=== PATIENT | female | born 1970 | race Caucasian/White ===

== ENCOUNTER 2017-08-13 16:07 | Emergency (ER) | payer OTHER, SELFPAY ==
[2017-08-13 16:11] VITALS: BP 115/76; PULSE 85; RESP 16; TEMP 36.4; O2SAT 100; BMI 19.8
--- NOTE | 2017-08-13 16:32 | HMH.EDEAR ---
ED Disposition Clinical Impression: Serous otitis media Disposition: Home, Self-Care Condition on Discharge: Good Additional Instructions: claritin D over the counter for allergic type of congestion, see your family MD next week for recheck. Time of Disposition: 16:35 - Critical Care Critical Care Time: No Attestation: On , the high probability of a clinically significant, sudden or life threatening deterioration of the following system(s) required my full and direct attention, intervention and personal management. The time I documented below is in addition to time spent performing reported procedures but includes the following listed in this critical care notation. Medical Decision Making Vital Signs: 08/13/17 16:11 Temperature 97.5 F L Temperature Source Oral Pulse Rate [Right Brachial] 85 Respiratory Rate 16 Blood Pressure [Right Arm] 115/76 Blood Pressure Mean [Right Arm] 89 Blood Pressure Source [Right Arm] Automatic Cuff Blood Pressure Position [Right Arm] Sitting 02 Sat by Pulse Oximetry 100 Oxygen Delivery Method Room Air - Fito Inquiry Pt receiving controlled substance: No Ear HPI - General Chief complaint: Ear Stated complaint: ear pain Time Seen by Provider: 08/13/17 16:30 Mode of Arrival: Ambulatory Limitations: No Limitations Description of Symptoms (Recalled from ER Triage Doc. by RN): Pt reports R ear pain for a couple months , reports L ear pain x3 days - History of Present Illness MD Complaint: ear pain, decreased hearing Location: bilateral Duration: intermittent Severity: mild Relieving factors: other (standing up) Exacerbating factors: position of head Discharge from ear: no Associated symptoms ear: decreased hearing, other (sinus pressure, congestion, hx chronic allergies. ) - Related Data Home Medications Medication Instructions Recorded Confirmed LORazepam [Ativan 1mg tablet] 0 mg PO TID 08/13/17 08/13/17 Allergies Allergy/AdvReac Type Severity Reaction Status Date / Time No Known Allergies Allergy Verified 08/13/17 16:17 [facility] History Medical History: Denies:: Diabetes Mellitus Type 1, Diabetes Mellitus Type 2 - Social History Smoking Status: Current every day smoker Tobacco Type: cigarettes Alcohol Intake: never - Psychiatric History Expresses thoughts of harming self/others: None Suicide Plan Description: No Plan ROS Obtained: Yes All systems reviewed & no additional complaints Physical Exam - General General appearance: alert, in no apparent distress - Head Head exam: atraumatic, normocephalic, normal inspection - Eye Eye exam: Present: normal appearance, PERRL, EOMI - ENT ENT exam: Present: normal oropharynx, mucous membranes moist, normal external ear exam (TM's cloudy B , c/w serous OM) - Respiratory Respiratory exam: Present: normal lung sounds bilaterally. Absent: respiratory distress - Cardiovascular Cardiovascular exam: Present: regular rate, normal rhythm. Absent: JVD - Abdominal Exam Abdominal exam: Present: soft, normal bowel sounds. Absent: distention, tenderness, guarding - Extremities Exam Extremities exam: Present: full ROM - Neurological Exam Neurological exam: Present: alert, oriented X3, CN II-XII intact. Absent: motor sensory deficit - Psychiatric Psychiatric exam: Present: normal affect, normal mood - Skin Skin exam: Present: warm, dry, intact, normal color - Lymphatic Lymphatic Findings: no adenopathy
--- NOTE | 2017-08-13 16:35 | ED_ITS ---
ED Disposition Clinical Impression: Serous otitis media Disposition: Home, Self-Care Condition on Discharge: Good Additional Instructions: claritin D over the counter for allergic type of congestion, see your family MD next week for recheck. Time of Disposition: 16:35 - Critical Care Critical Care Time: No Attestation: On , the high probability of a clinically significant, sudden or life threatening deterioration of the following system(s) required my full and direct attention, intervention and personal management. The time I documented below is in addition to time spent performing reported procedures but includes the following listed in this critical care notation. Medical Decision Making Vital Signs: 08/13/17 16:11 Temperature 97.5 F L Temperature Source Oral Pulse Rate [Right Brachial] 85 Respiratory Rate 16 Blood Pressure [Right Arm] 115/76 Blood Pressure Mean [Right Arm] 89 Blood Pressure Source [Right Arm] Automatic Cuff Blood Pressure Position [Right Arm] Sitting 02 Sat by Pulse Oximetry 100 Oxygen Delivery Method Room Air - Fito Inquiry Pt receiving controlled substance: No Ear HPI - General Chief complaint: Ear Stated complaint: ear pain Time Seen by Provider: 08/13/17 16:30 Mode of Arrival: Ambulatory Limitations: No Limitations Description of Symptoms (Recalled from ER Triage Doc. by RN): Pt reports R ear pain for a couple months , reports L ear pain x3 days - History of Present Illness MD Complaint: ear pain, decreased hearing Location: bilateral Duration: intermittent Severity: mild Relieving factors: other (standing up) Exacerbating factors: position of head Discharge from ear: no Associated symptoms ear: decreased hearing, other (sinus pressure, congestion, hx chronic allergies. ) - Related Data Home Medications Medication Instructions Recorded Confirmed LORazepam [Ativan 1mg tablet] 0 mg PO TID 08/13/17 08/13/17 Allergies Allergy/AdvReac Type Severity Reaction Status Date / Time No Known Allergies Allergy Verified 08/13/17 16:17 [facility] History Medical History: Denies:: Diabetes Mellitus Type 1, Diabetes Mellitus Type 2 - Social History Smoking Status: Current every day smoker Tobacco Type: cigarettes Alcohol Intake: never - Psychiatric History Expresses thoughts of harming self/others: None Suicide Plan Description: No Plan ROS Obtained: Yes All systems reviewed & no additional complaints Physical Exam - General General appearance: alert, in no apparent distress - Head Head exam: atraumatic, normocephalic, normal inspection - Eye Eye exam: Present: normal appearance, PERRL, EOMI - ENT ENT exam: Present: normal oropharynx, mucous membranes moist, normal external ear exam (TM's cloudy B , c/w serous OM) - Respiratory Respiratory exam: Present: normal lung sounds bilaterally. Absent: respiratory distress - Cardiovascular Cardiovascular exam: Present: regular rate, normal rhythm. Absent: JVD - Abdominal Exam Abdominal exam: Present: soft, normal bowel sounds. Absent: distention, tenderness, guarding - Extremities Exam Extremities exam: Present: full ROM - Neurological Exam Neurological exam: Present: alert, oriented X3, CN II-XII intact. Absent: motor sensory deficit - Psychiatric
[2017-08-13 16:50] VITALS: BP 121/80; PULSE 78; RESP 20; TEMP 37.1; O2SAT 100
== END 2017-08-13 16:50 | disposition home or self-care (01) ==
PROVIDERS: Emergency Provider Emergency Medicine; PCP Physician Assistant
DX: H65.93 Unspecified nonsuppurative otitis media, bilateral (principal); F17.210 Nicotine dependence, cigarettes, uncomplicated
CPT/HCPCS: 99281

== ENCOUNTER → 2017-08-25 09:48 | Outpatient (REF) | payer OTHER, SELFPAY ==
[2017-08-25 14:01] LABS: Amphetamine/Metha Screen,Urine Negative ng/mL (<1000); Barbiturates Screen,Urine Negative ng/mL (<200); Benzodiazepines Screen,Urine Negative ng/mL (200); Cannabinoid Screen,Urine Negative ng/mL (<50); Cocaine Screen,Urine Negative ng/g (<300); Methadone Screen,Urine Negative ng/mL (<300); Opiate Screen,Urine Negative ng/mL (<300); Phencyclidine Screen,Urine Negative ng/mL (<25)
== END ==
LOC: LAB 09:48
PROVIDERS: Visit Provider Physician Assistant
DX: Z79.899 Other long term (current) drug therapy (principal)
CPT/HCPCS: 80305

== ENCOUNTER → 2017-11-22 11:28 | Outpatient (REF) | payer OTHER, SELFPAY ==
[2017-11-22 14:12] LABS: Alanine Aminotransferase 36 U/L (12-78); Albumin Level 4.4 gm/dL (3.4-5.0); Albumin/Globulin Ratio 1.3 (1.1-1.8); Alkaline Phosphatase 56 U/L (46-116); Anion Gap 11.8 mEq/L (5-15); Aspartate Amino Transferase 29 U/L (15-37); Bilirubin,Total 0.5 mg/dL (0.2-1.0); Blood Urea Nitrogen 11 mg/dL (7-18); C-Reactive Protein < 0.2 mg/L (0.0-0.9); Calcium 9.5 mg/dL (8.5-10.1); Carbon Dioxide 28 mmol/L (21.0-32.0); Chloride 103 mmol/L (98-107); Chol/HDL Ratio 2.3 (1-3.5); Cholesterol 187 mg/dL (140-200); Creatinine,Serum 0.76 mg/dL (0.55-1.02); Estimated Glomerular Filt Rate 82 ml/min (>60); GFR (African American) 100 ML/MIN (>60); Globulin 3.4 gm/dl (1.3-3.2); Glucose 93 mg/dL (74-106); HDL Cholesterol 82 mg/dL (29-89); LDL Cholesterol 95 mg/dL (0-130); Potassium 3.8 mmoL/L (3.5-5.1); Sodium 139 mmol/L (136-145); T4 (Thyroxine) 6.5 ug/dl (4.7-13.3); Thyroid Stimulating Hormone 1.05 uIU/ml (0.358-3.740); Total Protein,Serum 7.8 gm/dL (6.4-8.2); Triglycerides 50 mg/dL (30-200); VLDL Cholesterol 10 mg/dL (0-40)
[2017-11-22 14:25] LABS: Basophils # 0.1 K/mm3 (0-0.2); Basophils % 1.2 % (0.1-2.0); Eosinophils # 0.2 K/mm3 (0.0-0.4); Eosinophils % 3.6 % (0.1-12.0); Hematocrit 44.2 % (37.0-47.0); Hemoglobin 13.2 g/dL (12.2-16.2); Lymphocytes # 1.8 K/mm3 (0.7-4.5); Mean Corpuscular Hemoglobin 28.1 pg (27.0-31.2); Mean Corpuscular Volume 93.7 fl (81-99); Mean Platelet Volume 8.8 fl (7.4-10.4); Monocytes # 0.4 K/mm3 (0.1-1.0); Monocytes % 6.7 % (1.7-9.3); Neutrophils # 3.7 K/mm3 (1.8-7.8); Neutrophils % 59.5 % (37.0-80.0); Platelet Count 214 K/mm3 (142-424); Red Blood Count 4.71 M/mm3 (4.20-5.40); Red Cell Distribution Width 11.4 % (11.5-17.5); White Blood Count 6.3 K/mm3 (4.8-10.8)
[2017-11-22 16:08] LABS: Erythrocyte Sedimentation Rate 0 mm/hr (0-20)
[2017-11-23 10:09] LABS: FSH 54.5 mIU/mL (.); LH 26.2 mIU/mL (.); Progesterone 0.3 ng/mL (.)
[2017-11-23 11:25] LABS: Anti-Jo-1 <0.2 AI (0.0-0.9); Anti-Smith Antibody <0.2 AI (0.0-0.9); Antichromatin Antibodies <0.2 AI (0.0-0.9); Antiscleroderma-70 Antibodies <0.2 AI (0.0-0.9); RNP Antibodies <0.2 AI (0.0-0.9); Sjogren's Anti-SS-A <0.2 AI (0.0-0.9); Sjogren's Anti-SS-B 0.3 AI (0.0-0.9)
[2017-11-23 14:39] LABS: Anti-Centromere B Antibodies <0.2 AI (0.0-0.9); Anti-DNA (DS) Ab Qn 1 IU/mL (0-9)
[2017-11-25 06:27] LABS: Anti-Cyclic Citrullinated Pept 10 units (0-19)
[2017-11-25 15:24] LABS: Estrogen 130 pg/mL (.)
== END ==
LOC: LAB 11:28
PROVIDERS: Visit Provider Physician Assistant
DX: F41.9 Anxiety disorder, unspecified (principal); F39 Unspecified mood [affective] disorder; R53.83 Other fatigue; L40.9 Psoriasis, unspecified; M25.40 Effusion, unspecified joint; M25.50 Pain in unspecified joint
CPT/HCPCS: 80053; 80061; 82652; 82672; 83001; 83002; 84144; 84436; 84443; 85025; 85651; 86038; 86140; 86200

== ENCOUNTER → 2018-05-30 20:18 | Outpatient (CLI) | payer BC, SELFPAY ==
[2018-05-30 22:12] LABS: Amphetamine/Metha Screen,Urine Negative ng/mL (<1000); Barbiturates Screen,Urine Negative ng/mL (<200); Benzodiazepines Screen,Urine Negative ng/mL (<200); Cannabinoid Screen,Urine Negative ng/mL (<50); Cocaine Screen,Urine Negative ng/mL (<300); Methadone Screen,Urine Negative ng/mL (<300); Opiate Screen,Urine Negative ng/mL (<300); Phencyclidine Screen,Urine Negative ng/mL (<25)
[2018-06-08 00:08] LABS: Alprazolam Negative (Cutoff=100); Benzodiazepines Positive ng/mL (Cutoff=100); Clonazepam Negative (Cutoff=100); Flurazepam Negative (Cutoff=100); Lorazepam Positive (.); Midazolam Negative (Cutoff=100); Temazepam Negative (Cutoff=100); Triazolam Negative (Cutoff=100)
== END ==
PROVIDERS: Visit Provider Physician Assistant
DX: Z79.899 Other long term (current) drug therapy (principal)
CPT/HCPCS: 80305; 80346

== ENCOUNTER → 2018-08-15 10:35 | Outpatient (CLI) | payer BC, SELFPAY ==
--- NOTE | 2018-08-15 10:40 | XR_ITS ---
XR shoulder LT min 2V HISTORY: ITS.REASON: Left shoulder pain ORDERING PHYSICIAN: GONZALO Wallace PATIENT AGE: 48 years Comparison: None FINDINGS: Minimal osteoarthritic changes present at the acromioclavicular joint and glenohumeral joint. No fracture or dislocation. No lytic or blastic change. No subacromial stenosis. IMPRESSION: Minimal osteoarthritis
== END ==
PROVIDERS: PCP Emergency Medicine; Visit Provider Physician Assistant
DX: M25.512 Pain in left shoulder (principal)
CPT/HCPCS: 73030

== ENCOUNTER → 2018-12-23 15:14 | Outpatient (CLI) | payer MEDICAID, SELFPAY ==
--- NOTE | 2018-12-23 15:19 | XR_ITS ---
XR shoulder LT min 2V HISTORY: ITS.REASON: shoulder pain ORDERING PHYSICIAN: Mariela Sellers APRN PATIENT AGE: 48 years Comparison: 08/15/2018 FINDINGS: There are mild osteoarthritic changes of the acromioclavicular joint and glenohumeral joint. No fracture or dislocation is evident. IMPRESSION: Mild osteoarthritis, no change with no acute finding
[2018-12-23 18:03] LABS: Amphetamine/Metha Screen,Urine Negative ng/mL (<1000); Barbiturates Screen,Urine Negative ng/mL (<200); Benzodiazepines Screen,Urine Negative ng/mL (<200); Cannabinoid Screen,Urine Negative ng/mL (<50); Cocaine Screen,Urine Negative ng/mL (<300); Methadone Screen,Urine Negative ng/mL (<300); Opiate Screen,Urine Negative ng/mL (<300); Phencyclidine Screen,Urine Negative ng/mL (<25)
[2018-12-30 19:12] LABS: Alprazolam Negative (Cutoff=100); Benzodiazepines Positive ng/mL (Cutoff=100); Clonazepam Negative (Cutoff=100); Flurazepam Negative (Cutoff=100); Lorazepam Positive (.); Midazolam Negative (Cutoff=100); Temazepam Negative (Cutoff=100); Triazolam Negative (Cutoff=100)
== END ==
PROVIDERS: PCP Physician Assistant; Visit Provider Nurse Practitioner Family
DX: M25.512 Pain in left shoulder (principal); Z79.899 Other long term (current) drug therapy; F41.9 Anxiety disorder, unspecified
CPT/HCPCS: 73030; 80305; 80346

== ENCOUNTER 2019-02-17 11:00 | Outpatient (RCR) | payer BC, MEDICAID, SELFPAY ==
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
== END 2019-02-17 11:05 | disposition home or self-care (01) ==
LOC: OT 11:00
PROVIDERS: Visit Provider Nurse Practitioner Family
DX: M25.512 Pain in left shoulder (principal)
CPT/HCPCS: 97014; 97033; 97110; 97165; G0283

== ENCOUNTER → 2019-03-01 17:00 | Outpatient (CLI) | payer BC, SELFPAY ==
--- NOTE | 2019-03-01 17:01 | MM_ITS ---
PROCEDURE: MM DIG SCREENING MAMM BI W/CAD CLINICAL INDICATION: screening There is no personal or family history of breast cancer. There has been previous biopsy right breast for benign disease. COMPARISON: [facility] DIGITAL MAMM-SCREEN BILATERAL from 08/29/2010 [facility] DIG MAMM-DX HUANG from 09/26/2014 [facility] DIG MAMM-SCREEN HUANG from 04/21/2016 TECHNIQUE: Standard CC and MLO images were obtained. R2 CAD reviewed. FINDINGS: There is a diffusely dense and heterogenic parenchymal pattern lessening the sensitivity of mammography. The findings are fairly symmetrical bilaterally. There is no suspicious lesion and no suspicious microcalcifications. IMPRESSION: Diffusely dense parenchymal pattern with no suspicious lesions seen BI-RAD Category: 1 Negative FOLLOW-UP: 1YR 1 Year Follow-up (A letter has been sent to the patient regarding results of the study.) Dictated by: Dr. Casimiro Yi MD 03/07/2019 21:[address] Casimiro Yi MD in [place] 03/07/2019 21:23
== END ==
PROVIDERS: PCP Physician Assistant; Visit Provider Physician Assistant
DX: Z12.31 Encounter for screening mammogram for malignant neoplasm of breast (principal)
CPT/HCPCS: 77067

== ENCOUNTER → 2019-03-14 12:41 | Outpatient (CLI) | payer BC, SELFPAY ==
--- NOTE | 2019-03-14 12:43 | MR_ITS ---
PROCEDURE: IR ARTHROGRAM SHOULDER LT MRI ARTHROGRAM LEFT SHOULDER CLINICAL INDICATION: Left shoulder pain Chronic left shoulder pain following injury with limited range of motion COMPARISON: SHOULDCMLT XR shoulder LT min 2V from 08/15/2018 FINDINGS: Technique: Following obtaining informed consent and time-out procedure under aseptic conditions and local anesthesia with 1 percent buffered lidocaine a 22 gauge spinal needle was inserted into the shoulder joint capsule by the anterior approach. Approximately 12 cc of a mixture of Optiray 320, gadolinium, and lidocaine was injected without complication. The patient tolerated the procedure well without evidence of immediate complication. Images were then obtained. Following this, the patient was taken to the MRI suite where post arthrogram images obtained The arthrogram there is normal localization of contrast outlining the joint and bursa. There is no evidence of abnormal localization of contrast within the subacromial region that would indicate a rotator cuff tear. There are mild osteoarthritic changes of the acromioclavicular joint. MRI left shoulder: There is appropriate localization of contrast. There is no evidence rotator cuff tear. Bicipital tendon is in place. There is a SLAP lesion of the anterior superior glenoid labrum. The middle glenohumeral ligament is not identified and could be torn. No evidence of a Hagel lesion. There is a small area of increased T2 signal along the posterior aspect of the humeral head. This may represent a Hill-Sachs deformity. This does communicate with the joint surface filling with contrast. The supraspinatus, infraspinatus, subscapularis, and teres minor tendons appear intact. IMPRESSION: 1. Slap tear of the glenoid labrum 2. Suspect small Hill-Sachs deformity versus subarticular cyst of the posterior humeral head 3. No evidence of rotator cuff tear Dictated by: Zafar Osorio MD 03/15/2019 14:24 Electronically signed by Zafar Osorio MD in [place] 03/17/2019 12:10
== END ==
PROVIDERS: PCP Physician Assistant; Visit Provider Orthopaedic Surgery
DX: M25.512 Pain in left shoulder (principal)
CPT/HCPCS: 73040; 73222; Q9967

== ENCOUNTER → 2019-03-20 16:36 | Outpatient (CLI) | payer BC, SELFPAY ==
--- NOTE | 2019-03-20 16:46 | XR_ITS ---
PROCEDURE: XR CHEST 2V CLINICAL HISTORY: pre-op exam, smoker COMPARISON: Chest from 12/11/2018 FINDINGS: The cardiomediastinal silhouette and pulmonary vascularity are within normal limits. The lungs are clear without infiltrates, suspicious nodules, or pleural effusions. No acute bony abnormalities. IMPRESSION: No acute process and no significant change. Dictated by: Catalino Malik 03/20/2019 17:14 Electronically signed by Catalino Malik in [place] 03/20/2019 17:14
[2019-03-20 16:55] LABS: Basophils # 0.1 K/mm3 (0-0.2); Basophils % 0.6 % (0.1-2.0); Eosinophils # 0.2 K/mm3 (0.0-0.4); Eosinophils % 2.1 % (0.1-12.0); Hematocrit 38.8 % (37.0-47.0); Hemoglobin 11.6 g/dL (12.2-16.2); Lymphocytes # 1.4 K/mm3 (0.7-4.5); Lymphocytes % 16.3 % (10-50); Mean Corpuscular HGB Conc 29.9 g/dL (31.8-35.4); Mean Corpuscular Hemoglobin 28.6 pg (27.0-31.2); Mean Corpuscular Volume 95.6 fl (81-99); Mean Platelet Volume 8.5 fl (7.4-10.4); Monocytes # 0.4 K/mm3 (0.1-1.0); Monocytes % 4.7 % (1.7-9.3); Neutrophils # 6.6 K/mm3 (1.8-7.8); Neutrophils % 76.3 % (37.0-80.0); Platelet Count 256 K/mm3 (142-424); Red Blood Count 4.06 M/mm3 (4.20-5.40); Red Cell Distribution Width 12.7 % (11.5-17.5); White Blood Count 8.6 K/mm3 (4.8-10.8)
[2019-03-20 19:19] LABS: Alanine Aminotransferase 15 U/L (12-78); Albumin/Globulin Ratio 1.2 (1.1-1.8); Alkaline Phosphatase 62 U/L (46-116); Anion Gap 11.2 mEq/L (5-15); Aspartate Amino Transferase 11 U/L (15-37); Bilirubin,Total 0.3 mg/dL (0.2-1.0); Blood Urea Nitrogen 16 mg/dL (7-18); Calcium 9.1 mg/dL (8.5-10.1); Carbon Dioxide 30 mmol/L (21.0-32.0); Chloride 103 mmol/L (98-107); Estimated Glomerular Filt Rate 77 ml/min (>60); GFR (African American) 93 ML/MIN (>60); Globulin 3.3 gm/dl (1.3-3.2); Glucose 90 mg/dL (74-106); Potassium 4.2 mmoL/L (3.5-5.1); Sodium 140 mmol/L (136-145); Total Protein,Serum 7.3 gm/dL (6.4-8.2)
== END ==
PROVIDERS: Visit Provider Orthopaedic Surgery
DX: Z01.818 Encounter for other preprocedural examination (principal); M25.512 Pain in left shoulder
CPT/HCPCS: 36415; 71046; 80053; 85025

== ENCOUNTER → 2019-05-23 16:19 | Outpatient (CLI) | payer BC, SELFPAY ==
--- NOTE | 2019-05-23 16:26 | XR_ITS ---
PROCEDURE: XR SHOULDER LT MIN 2V CLINICAL INDICATION: shoulder pain COMPARISON: SHOULDCMLT XR shoulder LT min 2V from 08/15/2018 IR ARTHROGRAM SHOULDER LT from 03/14/2019 MR SHOULDER LT W CON from 03/14/2019 FINDINGS: There is an external brace in place. There are minimal osteoarthritic changes of the glenohumeral joint. No subacromial stenosis. No fracture or dislocation. No lytic or blastic change. Small lucency is present in the proximal humeral shaft may be due to recent surgery. IMPRESSION: External brace in place, probable small surgical defect of the proximal humeral shaft with minimal osteoarthritic change. Dictated by: Zafar Osorio MD 05/23/2019 20:02 Electronically signed by Zafar Osorio MD in [place] 05/23/2019 20:02
== END ==
PROVIDERS: PCP Physician Assistant; Visit Provider Orthopaedic Surgery
DX: S43.431A Superior glenoid labrum lesion of right shoulder, initial encounter (principal)
CPT/HCPCS: 73030

== ENCOUNTER 2019-06-29 15:00 | Outpatient (RCR) | payer BC, SELFPAY ==
--- NOTE | 2019-04-21 13:50 | HMH.OTOPEV ---
OT Inpatient Evaluation Rehab OT Outpatient Eval Start: 04/21/19 13:29 Freq: Status: Active Protocol: Document 04/21/19 13:29 TFRY (Rec: 04/21/19 13:50 TFRY [id number]) Electronically Signed By Lizbeth Toney, OT 04/21/19 13:29 Outpatient Therapy Subjective History Subjective History This is a 48 year old right handed female referred to occupational therapy services as patient underwent left shoulder arthroscopy, SAD, DCE , LHBT tenodesis. Patient reports that she had surgery on March 28. Reports that she had therapy prior to surgery. Chief Complaint Pain,Stiff Symptom Type Sharp,Dull,Numbness,Other Symptoms Relieved By Rest/Positioning,Prescription Meds Symptoms Aggravated By Physical Activity Prior Functional Limitations None Current Functional Limitations Reaching,Lifting,Housework, Dressing,Driving,Sleeping Symptom Description Activity Dependent Level of pain today (0-10) 2 Pain scale - at its best (0-10) 2 Pain scale - at its worst (0-10) 10 Shoulder/Elbow Eval Shoulder Objective Measurements Palpation Tenderness tenderness shoulder exam standard left Shoulder ROM Left Shoulder ROM Limitations Pain Shoulder Abduction Passive Range of 40 Motion (degrees) Shoulder Flexion Passive Range of Motion 40 (degrees) Shoulder External Rotation Passive Range 0 of Motion (degrees) Shoulder Internal Rotation Passive Range WFL gravity elimat of Motion (degrees) pain with passive ROM shoulder exam left standard decreased ROM shoulder exam standard left Shoulder MMT Shoulder Strength Reason Not Measured Orthopedic Precautions Elbow Objective Measurements OT Outpatient Assessment Impairments Problems/Impairments Impaired Range of Motion, Impaired Strength,Impaired Lifting,Impaired Dressing, Impaired Shower/Bathing, Impaired Household Care, Subjective C/O Pain Prognosis Rehab Potential Good Clinical Impression Consistent with Diagnosis Yes Short Term Goals Number of Weeks 4 Increase Range of Motion Yes: Left shoulder PROM - WFL in all planes Increase Strength Yes: Left shoulder strength - 3/5 throughout Improve Ability to Dress Bebe
--- NOTE | 2019-06-06 15:03 | HMH.RHREAS ---
Rehab Reassessment Rehab OP Re-assessment Start: 06/06/19 13:35 Freq: Status: Active Protocol: Document 06/06/19 13:36 TFRY (Rec: 06/06/19 15:03 TFRY [id number]) Electronically Signed By Lizbeth Toney OT 06/06/19 13:36 Rehab Re-assessment Subjective Subjective My shoulder is 70% better. Objective Objective Notes Patient seen this date for skilled occupational therapy services. See exercise flow sheet for exercises. Reassessment of left shoulder PROM: flexion - 0-160; abduction - 0-170; int rot. - 0-70; ext rot. - 0-70. AROM: flexion - 0-145; abduction - 0 -150; int. rot. - 0-60; ext. rot. - 0-60. Pain is a 4 at worse. Patient reports increased independence with ADL's. Assessment Progress Assessment Progressing as Expected Assessment Notes ROM noted to be improving and pain decreasing with activities. Patient goals met STG's - 8 LTG's - 09/28 Goals Not Met AROM and strength Plan Plan Continue OT working on unmet goals. Frequency of Therapy 2x per week Duration of therapy 6 weeks Time and Billing Re-Eval Time 5 Re-Eval Billing Units 0 PHYSICIAN CERTIFICATION: I certify the specified therapy services for Hortencia Nunez are required, authorized, and reviewed every 30 days.
== END 2019-06-29 15:05 | disposition home or self-care (01) ==
LOC: OT 15:00
PROVIDERS: Visit Provider Orthopaedic Surgery
DX: S43.432D Superior glenoid labrum lesion of left shoulder, subsequent encounter (principal)
CPT/HCPCS: 97014; 97110; 97140; 97164; 97165; G0283

== ENCOUNTER → 2019-07-03 14:30 | Outpatient (CLI) | payer BC, SELFPAY ==
--- NOTE | 2019-07-03 14:36 | XR_ITS ---
PROCEDURE: XR SHOULDER LT 1V CLINICAL INDICATION: shoulder fu Follow-up surgery COMPARISON: SHOULDCMLT XR shoulder LT min 2V from 08/15/2018 IR ARTHROGRAM SHOULDER LT from 03/14/2019 XR SHOULDER LT MIN 2V from 05/23/2019 FINDINGS: There are minor osteoarthritic changes of the acromioclavicular joint and glenohumeral joint. No fracture or dislocation. No lytic or blastic change. There is a lucency over the proximal shaft of the humerus which may be postsurgical. IMPRESSION: Minor osteoarthritic change. Lucency over the proximal humeral shaft which may be postsurgical. Dictated by: Zafar Osorio MD 07/03/2019 15:46 Electronically signed by Zafar Osorio MD in [place] 07/03/2019 15:46
== END ==
PROVIDERS: PCP Physician Assistant; Visit Provider Orthopaedic Surgery
DX: S43.432A Superior glenoid labrum lesion of left shoulder, initial encounter (principal)
CPT/HCPCS: 73020

== ENCOUNTER → 2019-09-15 08:22 | Outpatient (CLI) | payer BC, SELFPAY ==
--- NOTE | 2019-09-15 08:26 | XR_ITS ---
PROCEDURE: XR SHOULDER LT MIN 2V CLINICAL INDICATION: left shoulder sx 03/28/19 Follow-up surgery, pain COMPARISON: SHOULDCMLT XR shoulder LT min 2V from 08/15/2018 IR ARTHROGRAM SHOULDER LT from 03/14/2019 MR SHOULDER LT W CON from 03/14/2019 XR SHOULDER LT MIN 2V from 05/23/2019 XR SHOULDER LT 1V from 07/03/2019 FINDINGS: There are mild osteoarthritic changes of the acromioclavicular joint and minimal superior elevation of the humeral head. There double density along the superior aspect of the glenoid which could be due to prior surgery or posttraumatic changes. There is lucency in the proximal humeral shaft which may be due to bicipital tendon transfer. IMPRESSION: Postsurgical changes. Unusual double density noted along the superior aspect of the glenoid and could be related to prior surgery or an old fracture. Please correlate with clinical parameters. CT may provide further evaluation if clinically warranted Dictated by: Zafar Osorio MD 09/15/2019 09:00 Electronically signed by Zafar Osorio MD in [place] 09/15/2019 09:00
== END ==
PROVIDERS: PCP Physician Assistant; Visit Provider Orthopaedic Surgery
DX: S43.432A Superior glenoid labrum lesion of left shoulder, initial encounter (principal)
CPT/HCPCS: 73030

== ENCOUNTER → 2019-09-21 13:31 | Outpatient (CLI) | payer BC, SELFPAY ==
--- NOTE | 2019-09-21 13:31 | CT_ITS ---
PROCEDURE: CT SHOULDER LT WO CON CLINICAL HISTORY: shoulder pain COMPARISON: XR SHOULDER LT MIN 2V from 09/15/2019 TECHNIQUE: Axial images obtained with sagittal and coronal and 3D reformats. All CT scans at the facility use one or more dose reduction, viz: automated exposure control, ma/kV adjustment per patient size (including targeted exams where dose is matched to indication, i.e. head), or iterative reconstruction technique. FINDINGS: There is no acute fracture or dislocation. There is mild acromioclavicular joint arthropathy. Radiolucent defect approximately 7 millimeters along the anterior cortex of the mid proximal shaft of the humerus is noted with some increased density in the intramedullary region of the adjacent humerus, probably postsurgical. IMPRESSION: No acute findings. Anterior cortical defect proximal shaft of humerus. This is suspected to be a postsurgical finding. Clinical correlation is recommended. Dictated by: Jacques Nielsen 09/21/2019 14:46 Electronically signed by Jacques Nielsen in [place] 09/21/2019 14:46
== END ==
PROVIDERS: PCP Physician Assistant; Visit Provider Orthopaedic Surgery
DX: M25.512 Pain in left shoulder (principal)
CPT/HCPCS: 73200

== ENCOUNTER → 2019-12-28 12:46 | Outpatient (POV) | payer BC, SELFPAY ==
[2019-12-28 13:54] VITALS: BP 135/85; PULSE 82; RESP 18; O2SAT 98; BMI 23.2
--- NOTE | 2019-12-28 14:18 | HMH.PMCON ---
Assessment and Plan (1) Left shoulder pain Current visit: Yes Status: Chronic Category: Medical Code(s): M25.512 - Pain in left shoulder - Assessment and plan all Dx Assessment and Plan for all problems:: We will plan for a left intra-articular shoulder injection for the patient. He is scheduled to undergo an MRI this upcoming week. I have asked her to bring a copy of her MRI with her to her next appointment. We will see her back in the clinic after her injection to reassess her symptoms. She has been instructed to contact the clinic if she has any concerns before her next appointment. The patient and I specifically discussed risk factors for COVID19. These risks include, but are not limited to age greater than 60, heart or lung disease, diabetes, immunosuppression, and travel. We also discussed NSAIDs may worsen COVID19 infection or symptoms. Patient should not use NSAIDs to treat COVID19 signs or symptoms. Patient was also informed that any type of corticosteroid of any form (oral or injection) will decrease the patient's immune system response and may increase the likelihood of COVID19 infection and symptoms[address] Dr. Esquivel has reviewed this note and agrees with this plan of care. This note was dictated using voice recognition software and make contain errors or omissions. HPI - Data of Consult Patient: new to practice Consult date: 12/28/19 Requesting Physician: Edilma Fajardo APRN Primary Care Provider: GONZALO Kendrick - Consult Narrative Reason for consult: Left shoulder pain History of present illness: Ms. Nunez is a 49 year old female who presents today for consultation for left shoulder pain. Patient says that she has had chronic left shoulder pain since undergoing a surgical procedure with Dr. Macdonald. She underwent surgery in March 2019. She has continued to have severe pain since the surgery. Patient says that she had a dislocated left shoulder and September 2018. She says she continued to have severe pain. She says that she did undergo surgery as a result of her continued pain. Patient says following the surgery she discussed her pain with Dr. Macdonald. Patient says that Dr. Macdonald did perform an injection into her left shoulder for which she was told would be a one-time injection that she could only have once in a lifetime . Patient says that the injection did not give her any relief. Patient is unsure what the injection was, but was told that it would relieve her pain. Patient says that she is continued to get worse with her pain. She is at the point that she has had to quit her job because she is unable to sleep at night for function throughout the day due to the pain. She did follow-up with Dr. Faulkner being in [facility] because she wanted a second opinion from orthopedist. Patient says that she has undergone an x-ray as well as a CT scan. She says the x-ray initially said that she had a fracture. The CT scan was unremarkable. As a result, Dr. thompson he did make a decision to send the patient for an MRI. Patient says she is scheduled to undergo an MRI of her left shoulder this upcoming week. Patient does rate her pain a 7 out of 10. Has tried physical therapy along with a continued home stretching program. She also uses ice and heat therapies. Patient was given tramadol but says it did not relieve her pain. CC: Edilma Fajardo APRN [facility] History I have reviewed the patient's past medical history: Yes Medical History: Reports:: Anxiety, Depression Denies:: Cancer, Diabetes Mellitus Type 1, Diabetes Mellitus Type 2, Internal Pacemaker, MRSA, Seizures *Have you ever received a pneumonia vaccine?: Yes *Have you received a flu vaccine this season?: Yes Other Medical History: Denies: Blood Transfusion Reaction Laterality Cases: Left: Arthroscopy Shoulder Other Surgeries: Yes: Hysterectomy-Partial, Tubal Ligation, Other. No: Pacemaker Amputation: No Fractures: No - *Social Histor
== END ==
PROVIDERS: PCP Physician Assistant; Visit Provider Clinical Nurse Specialist Family Health
DX: M25.512 Pain in left shoulder (principal)
CPT/HCPCS: 99202

== ENCOUNTER → 2020-01-02 12:54 | Outpatient (CLI) | payer BC, SELFPAY ==
--- NOTE | 2020-01-02 13:19 | MR_ITS ---
PROCEDURE: MR SHOULDER LT W CON CLINICAL INDICATION: PAIN IN LEFT SHOULDER Shoulder pain since shoulder surgery in March. Pain when raising arm above head. Weakness in the arm. Prior x-ray 09/15/2019. Prior MRI 03/14/2019 COMPARISON: MR SHOULDER LT W CON from 03/14/2019 TECHNIQUE: Routine multiplanar multi echo sequences are performed following intra-articular contrast injection. Please see arthrogram report further details. FINDINGS: Intra-articular contrast is noted. There is appropriate joint distension. There is abnormal localization of contrast into the subacromial region. There is thinning and irregularity of the supraspinatus tendon. A complete tear however is not identified. The abnormal localization of contrast however suggest either a rent in the capsule from the previous surgery or a tear within the supraspinatus/infraspinatus tendon complex. Please correlate with surgical history. The infraspinatus tendon appears intact. The teres minor and subscapularis tendons are also intact. No obvious labral tear. The middle glenohumeral ligament is thinned. No evidence of Hagl lesion. The bicipital tendon is not identified. May have been a prior bicipital tendon transfer. Please correlate with surgical procedure. Are too small sub cortical cyst along the humeral head posteriorly. Contrast does fill the acromioclavicular joint space. The glenoid labrum has an unremarkable appearance. There is some artifact from the previous surgery. IMPRESSION: 1. Abnormal localization of contrast within the sub acromial region outlining the supraspinatus tendon consistent with a tendon tear or rent within the capsule from interval surgery. Supraspinatus tendon is thin and irregular. A complete tear however is not present. 2. Thin middle glenohumeral ligament. 3. Bicipital tendon is not identified. Suspect interval bicipital tendon transfer. Please correlate with surgical procedure Dictated by: Zafar Osorio MD 01/05/2020 09:02 Electronically signed by Zafar Osoiro MD in [place] 01/05/2020 09:02
--- NOTE | 2020-01-02 13:26 | IR_ITS ---
PROCEDURE: IR ARTHROGRAM SHOULDER LT CLINICAL INDICATION: LT SHOULDER PAIN COMPARISON: IR ARTHROGRAM SHOULDER LT from 03/14/2019 FINDINGS: Technique: Following obtaining informed consent and time-out procedure under aseptic conditions and local anesthesia with 1 percent buffered lidocaine, a 22 gauge needle was inserted into the shoulder joint capsule via the anterior subcoracoid approach. Approximately 12 cc of a mixture of gadolinium, Optiray 320, and lidocaine was injected and noted to fill the shoulder joint as expected. The patient tolerated the procedure well without evidence of immediate complication. Images were then obtained. The patient was then taken to MRI for MRI arthrogram. Fluoroscopy time: 1 minutes and 16 seconds There is abnormal localization contrast within the subacromial region also somewhat filling the acromioclavicular joint space consistent with a rotator cuff tear. Contrast injected easily. No evidence adhesive capsulitis. IMPRESSION: Abnormal localization of contrast within the sub acromial region consistent with rotator cuff tear. The patient has had interval shoulder surgery. I suppose, the abnormal localization of contrast could also be related to postsurgical change. Please correlate with surgical procedure. Dictated by: Zafar Osorio MD 01/05/2020 08:46 Electronically signed by Zafar Osorio MD in [place] 01/05/2020 08:46
== END ==
PROVIDERS: PCP Physician Assistant; Visit Provider Orthopaedic Surgery Adult Reconstructive Orthopaedic Surgery
DX: M25.512 Pain in left shoulder (principal)
CPT/HCPCS: 73040; 73222

== ENCOUNTER 2020-01-23 16:00 | Outpatient (RCR) | payer BC, SELFPAY | END 2020-01-23 16:47 | disposition home or self-care (01) | LOC: PT 16:00 | PROVIDERS: PCP Physician Assistant; Visit Provider Orthopaedic Surgery Adult Reconstructive Orthopaedic Surgery | DX: M25.512 Pain in left shoulder (principal) | CPT/HCPCS: 97014; 97016; 97110; 97163; G0283 ==

== ENCOUNTER → 2020-01-29 16:26 | Outpatient (CLI) | payer BC, SELFPAY | PROVIDERS: Visit Provider Physician Assistant | DX: R30.0 Dysuria (principal) | CPT/HCPCS: 87086; 87088 ==

== ENCOUNTER → 2020-01-29 18:07 | Outpatient (CLI) | payer BC, SELFPAY ==
[2020-01-29 19:31] LABS: Basophils # 0.1 K/mm3 (0-0.2); Basophils % 0.5 % (0.1-2.0); Eosinophils # 0.3 K/mm3 (0.0-0.4); Eosinophils % 2.7 % (0.1-12.0); Hematocrit 39.8 % (37.0-47.0); Hemoglobin 13.3 g/dL (12.2-16.2); Lymphocytes # 1.7 K/mm3 (0.7-4.5); Lymphocytes % 16.3 % (10-50); Mean Corpuscular HGB Conc 33.5 g/dL (31.8-35.4); Mean Corpuscular Hemoglobin 30.1 pg (27.0-31.2); Mean Corpuscular Volume 90.1 fl (81-99); Mean Platelet Volume 8.9 fl (7.4-10.4); Monocytes # 0.4 K/mm3 (0.1-1.0); Monocytes % 3.9 % (1.7-9.3); Neutrophils # 7.9 K/mm3 (1.8-7.8); Neutrophils % 76.6 % (37.0-80.0); Platelet Count 270 K/mm3 (142-424); Red Blood Count 4.41 M/mm3 (4.20-5.40); Red Cell Distribution Width 12.3 % (11.5-17.5); White Blood Count 10.3 K/mm3 (4.8-10.8)
[2020-01-29 20:26] LABS: Alanine Aminotransferase 13 U/L (12-78); Albumin Level 4.4 g/dl (3.5-5.0); Albumin/Globulin Ratio 1.4 (1.1-1.8); Alkaline Phosphatase 66 U/L (38-126); Anion Gap 15.6 mEq/L (5-15); Aspartate Amino Transferase 24 U/L (14-36); Bilirubin,Total 0.2 mg/dl (0.2-1.3); Blood Urea Nitrogen 13 mg/dl (7-17); Calcium 9.6 mg/dl (8.4-10.2); Carbon Dioxide 28 mmol/L (22.0-30.0); Chloride 100 mmol/L (98-107); Chol/HDL Ratio 2.5 (1-3.5); Cholesterol 198 mg/dl (140-200); Estimated Glomerular Filt Rate 107 ml/min (>60); GFR (African American) 130 ML/MIN (>60); Globulin 3.1 g/dL (1.3-3.2); Glucose 127 mg/dl (74-100); HDL Cholesterol 80 mg/dl (40-60); Potassium 3.6 mmoL/L (3.5-5.1); Sodium 140 mmol/L (136-145); Total Protein,Serum 7.5 g/dl (6.3-8.2); Triglycerides 150 mg/dl (30-150); VLDL Cholesterol 30 mg/dL (0-40)
[2020-01-29 20:42] LABS: 25-OH Vitamin D, Total 25.5 ng/mL (30-100)
[2020-01-29 20:45] LABS: Direct LDL Cholesterol 90.43 mg/dL (100-129)
[2020-01-29 20:46] LABS: T4 (Thyroxine) 6.8 ug/dl (5.53-11.0)
[2020-01-29 20:59] LABS: Thyroid Stimulating Hormone 2.12 uIU/mL (0.465-4.68)
[2020-01-30 14:04] LABS: Hemoglobin A1C 5.3 % (4.0-6.0)
== END ==
PROVIDERS: Visit Provider Physician Assistant
DX: F41.9 Anxiety disorder, unspecified (principal); R53.83 Other fatigue; R73.9 Hyperglycemia, unspecified; E55.9 Vitamin D deficiency, unspecified
CPT/HCPCS: 80053; 80061; 82306; 83036; 84436; 84443; 85025; 87086; 87088; 87186

== ENCOUNTER → 2020-05-09 16:45 | Outpatient (CLI) | payer BC, SELFPAY ==
--- NOTE | 2020-05-09 16:45 | MM_ITS ---
PROCEDURE: MM DIG SCREENING MAMM BI W/CAD Digital Breast Tomosynthesis Included CLINICAL INDICATION: Annual exam for breast cancer COMPARISON: MG DMDB DIG MAMM-DX HUANG from 09/26/2014 MG DMSB DIG MAMM-SCREEN HUANG from 04/21/2016 MG MM DIG SCREENING MAMM BI W/CAD from 03/01/2019 TECHNIQUE: Standard CC and MLO images and 3D Tomosynthesis was obtained. R2 CAD reviewed. FINDINGS: Prominent heterogenic fibroglandular densities are seen in the central portions of both breast. The findings are fairly symmetrical bilaterally. Naveed images are most helpful with this dense breast parenchyma and I see no suspicious lesion in either breast. There are no suspicious microcalcifications. IMPRESSION: Diffuse dense parenchymal pattern with no suspicious lesions seen BI-RAD Category: 1 Negative FOLLOW-UP: 1YR 1 Year Follow-up (A letter has been sent to the patient regarding results of the study.) Dictated by: Dr. Casimiro Yi MD 05/12/2020 16:15 Dr. Casimiro Yi MD in [place] 05/12/2020 16:15
== END ==
PROVIDERS: PCP Physician Assistant; Visit Provider Physician Assistant
DX: Z12.31 Encounter for screening mammogram for malignant neoplasm of breast (principal)
CPT/HCPCS: 77063; 77067

== ENCOUNTER → 2020-05-14 14:52 | Outpatient (CLI) | payer BC, SELFPAY ==
--- NOTE | 2020-05-14 15:01 | XR_ITS ---
PROCEDURE: XR THORACIC SPINE 3V CLINICAL INDICATION: thoracalgia COMPARISON: CR TSP THORACIC SPINE-3V SWIMMERS from 05/01/2014 FINDINGS: No fracture or dislocation. No lytic or blastic change. There is normal mineralization. There is mild upper thoracic curvature convex right. No acute fracture or dislocation. No lytic or blastic change. There is degenerative disc disease at C4-C5 on the swimmer's view with mild anterolisthesis of C4 on C5 of 4 mm Other findings:None. IMPRESSION: Mild upper thoracic scoliosis not significantly changed from 05 01 14. Degenerative disc disease C4-C5 with 4 mm anterolisthesis of C4 Dictated by: Zafar Osorio MD 05/14/2020 15:43 Zafar Osorio MD in [place] 05/14/2020 15:44
[2020-05-14 16:03] LABS: Basophils # 0.1 K/mm3 (0-0.2); Basophils % 1.3 % (0.1-2.0); Eosinophils # 0.4 K/mm3 (0.0-0.4); Eosinophils % 4.2 % (0.1-12.0); Hematocrit 43.7 % (37.0-47.0); Hemoglobin 13.7 g/dL (12.2-16.2); Lymphocytes # 2.3 K/mm3 (0.7-4.5); Lymphocytes % 22.1 % (10-50); Mean Corpuscular HGB Conc 31.3 g/dL (31.8-35.4); Mean Corpuscular Hemoglobin 29.3 pg (27.0-31.2); Mean Corpuscular Volume 93.5 fl (81-99); Mean Platelet Volume 10.1 fl (7.4-10.4); Monocytes # 0.5 K/mm3 (0.1-1.0); Monocytes % 4.5 % (1.7-9.3); Platelet Count 274 K/mm3 (142-424); Red Blood Count 4.67 M/mm3 (4.20-5.40); Red Cell Distribution Width 13.6 % (11.5-17.5); White Blood Count 10.3 K/mm3 (4.8-10.8)
[2020-05-14 16:05] LABS: Alanine Aminotransferase 11 U/L (12-78); Albumin Level 4.6 g/dl (3.5-5.0); Albumin/Globulin Ratio 1.6 (1.1-1.8); Alkaline Phosphatase 67 U/L (38-126); Amylase 56 U/L (30-110); Aspartate Amino Transferase 24 U/L (14-36); Bilirubin,Total 0.3 mg/dl (0.2-1.3); Blood Urea Nitrogen 17 mg/dl (7-17); Calcium 10.2 mg/dl (8.4-10.2); Carbon Dioxide 32 mmol/L (22.0-30.0); Chloride 97 mmol/L (98-107); Estimated Glomerular Filt Rate 59 ml/min (>60); GFR (African American) 72 ML/MIN (>60); Globulin 2.8 g/dL (1.3-3.2); Glucose 93 mg/dl (74-100); Lipase 136 U/L (23-300); Sodium 136 mmol/L (136-145); Total Protein,Serum 7.4 g/dl (6.3-8.2)
[2020-05-17 17:20] LABS: H. pylori Breath Test Negative (Negative)
== END ==
PROVIDERS: Visit Provider Physician Assistant
DX: R07.9 Chest pain, unspecified (principal); R10.13 Epigastric pain; M54.6 Pain in thoracic spine
CPT/HCPCS: 36415; 72072; 80053; 82150; 83013; 83690; 85025

== ENCOUNTER 2020-06-03 11:41 | Emergency (ER) | payer BC, SELFPAY ==
[2020-06-03 11:50] VITALS: BP 124/63; PULSE 83; RESP 16; TEMP 36.8; O2SAT 100; BMI 22.6
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
[2020-06-03 12:12] VITALS: BP 111/55; PULSE 88; RESP 20; O2SAT 99
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
[2020-06-03 12:42] VITALS: BP 111/62; PULSE 80; O2SAT 98
--- NOTE | 2020-06-03 12:55 | PC.NURSE ---
PT returned from CT
[2020-06-03 13:55] VITALS: BP 118/60; PULSE 80; RESP 20; TEMP 36.8; O2SAT 100
== END 2020-06-03 13:57 | disposition home or self-care (01) ==
PROVIDERS: Emergency Provider Emergency Medicine; PCP Physician Assistant
DX: F07.81 Postconcussional syndrome (principal); S09.90XA Unspecified injury of head, initial encounter; F17.210 Nicotine dependence, cigarettes, uncomplicated; F41.8 Other specified anxiety disorders; V86.55XA Driver of 3- or 4- wheeled all-terrain vehicle (ATV) injured in nontraffic accident, initial encounter; Y92.89 Other specified places as the place of occurrence of the external cause
CPT/HCPCS: 70450; 70486; 72125; 96374; 99282

== ENCOUNTER → 2020-07-29 14:17 | Outpatient (CLI) | payer BC, SELFPAY ==
[2020-07-29 15:41] LABS: Amphetamine/Metha Screen,Urine Negative ng/ml (<1000)
[2020-07-29 15:42] LABS: Benzodiazepines Screen,Urine Negative ng/ml (<200)
[2020-07-29 15:43] LABS: Cannabinoid Screen,Urine Negative ng/ml (<50)
[2020-07-29 15:44] LABS: Barbiturates Screen,Urine Negative ng/ml (<200); Opiate Screen,Urine Negative ng/ml (<300)
[2020-07-29 15:45] LABS: Cocaine Screen,Urine Negative ng/ml (<300)
[2020-07-29 15:46] LABS: Methadone Screen,Urine Negative ng/ml (<300); Phencyclidine Screen,Urine Negative ng/ml (<25)
== END ==
PROVIDERS: Visit Provider Physician Assistant
DX: Z79.899 Other long term (current) drug therapy (principal)
CPT/HCPCS: 80305

== ENCOUNTER → 2020-10-24 17:05 | Outpatient (CLI) | payer BC, SELFPAY | PROVIDERS: Visit Provider Physician Assistant | DX: R30.0 Dysuria (principal) | CPT/HCPCS: 87086 ==

== ENCOUNTER → 2020-11-13 15:14 | Outpatient (CLI) | payer BC, SELFPAY ==
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
== END ==
PROVIDERS: PCP Physician Assistant; Visit Provider Orthopaedic Surgery Adult Reconstructive Orthopaedic Surgery
DX: M54.2 Cervicalgia (principal)
CPT/HCPCS: 72141; 76376

== ENCOUNTER → 2021-02-05 13:39 | Outpatient (CLI) | payer BC, SELFPAY ==
[2021-02-05 15:19] LABS: Amphetamine/Metha Screen,Urine Negative ng/ml (<1000)
[2021-02-05 15:21] LABS: Barbiturates Screen,Urine Negative ng/ml (<200)
[2021-02-05 15:22] LABS: Benzodiazepines Screen,Urine Negative ng/ml (<200)
[2021-02-05 15:23] LABS: Cannabinoid Screen,Urine Negative ng/ml (<50); Cocaine Screen,Urine Negative ng/ml (<300)
[2021-02-05 15:24] LABS: Methadone Screen,Urine Negative ng/ml (<300); Opiate Screen,Urine Negative ng/ml (<300)
[2021-02-05 15:25] LABS: Phencyclidine Screen,Urine Negative ng/ml (<25)
== END ==
PROVIDERS: Visit Provider Physician Assistant
DX: Z79.899 Other long term (current) drug therapy (principal)
CPT/HCPCS: 80305

== ENCOUNTER → 2021-05-20 10:09 | Outpatient (CLI) | payer BC, SELFPAY ==
--- NOTE | 2021-05-20 10:25 | XR_ITS ---
PROCEDURE: XR WRIST RT MIN 3V CLINICAL INDICATION: right wrist pain COMPARISON: No exams were available for comparison FINDINGS: No fracture or dislocation. No lytic or blastic change. There is normal mineralization. The joint spaces are well-preserved. No significant degenerative/arthritic changes. No erosive changes evident. Other findings:None. IMPRESSION: No acute findings. Dictated by: Zafar Osorio MD 05/20/2021 10:48 Zafar Osorio MD in [place] 05/20/2021 10:48
[2021-05-20 14:47] LABS: Basophils # 0.1 K/mm3 (0-0.2); Basophils % 0.7 % (0.1-2.0); Eosinophils # 0.3 K/mm3 (0.0-0.4); Hematocrit 38.1 % (37.0-47.0); Hemoglobin 12.7 g/dL (12.2-16.2); Lymphocytes # 1.7 K/mm3 (0.7-4.5); Lymphocytes % 17.1 % (10-50); Mean Corpuscular HGB Conc 33.2 g/dL (31.8-35.4); Mean Corpuscular Hemoglobin 29.7 pg (27.0-31.2); Mean Corpuscular Volume 89.4 fl (81-99); Mean Platelet Volume 9.7 fl (7.4-10.4); Monocytes # 0.5 K/mm3 (0.1-1.0); Monocytes % 4.7 % (1.7-9.3); Neutrophils # 7.2 K/mm3 (1.8-7.8); Neutrophils % 74.5 % (37.0-80.0); Platelet Count 325 K/mm3 (142-424); Red Blood Count 4.26 M/mm3 (4.20-5.40); Red Cell Distribution Width 12.4 % (11.5-17.5); White Blood Count 9.7 K/mm3 (4.8-10.8)
[2021-05-20 15:40] LABS: Erythrocyte Sedimentation Rate 18 mm/hr (0-20)
[2021-05-20 16:32] LABS: Alanine Aminotransferase 17 U/L (12-78); Albumin Level 4.6 g/dl (3.5-5.0); Albumin/Globulin Ratio 1.6 (1.1-1.8); Alkaline Phosphatase 74 U/L (38-126); Anion Gap 11.5 mEq/L (5-15); Aspartate Amino Transferase 38 U/L (14-36); Bilirubin,Total 0.4 mg/dl (0.2-1.3); Blood Urea Nitrogen 13 mg/dl (7-17); Carbon Dioxide 29 mmol/L (22.0-30.0); Chloride 102 mmol/L (98-107); Estimated Glomerular Filt Rate 89 ml/min (>60); GFR (African American) 108 ML/MIN (>60); Globulin 2.9 g/dL (1.3-3.2); Glucose 90 mg/dl (74-100); Potassium 4.5 mmoL/L (3.5-5.1); Sodium 138 mmol/L (136-145); Total Protein,Serum 7.5 g/dl (6.3-8.2)
[2021-05-20 16:37] LABS: C-Reactive Protein 2.6 mg/L (0-4)
[2021-05-22 11:30] LABS: RA Latex Turbid. <10.0 IU/mL (<14.0)
[2021-05-22 13:31] LABS: Anti-Centromere B Antibodies <0.2 AI (0.0-0.9); Anti-DNA (DS) Ab Qn 1 IU/mL (0-9); Anti-Jo-1 <0.2 AI (0.0-0.9); Anti-Smith Antibody <0.2 AI (0.0-0.9); Antichromatin Antibodies <0.2 AI (0.0-0.9); Antiscleroderma-70 Antibodies <0.2 AI (0.0-0.9); RNP Antibodies <0.2 AI (0.0-0.9); Sjogren's Anti-SS-A <0.2 AI (0.0-0.9); Sjogren's Anti-SS-B 0.3 AI (0.0-0.9)
[2021-05-23 00:07] LABS: Anti-Cyclic Citrullinated Pept 10 units (0-19)
== END ==
PROVIDERS: PCP Physician Assistant; Visit Provider Physician Assistant
DX: M25.531 Pain in right wrist (principal)
CPT/HCPCS: 73110; 80053; 85025; 85651; 86140; 86200; 86225; 86235; 86431

== ENCOUNTER 2021-05-20 10:38 | Outpatient (RCR) | payer BC, SELFPAY | END 2021-05-20 11:27 | disposition home or self-care (01) | LOC: OT 10:38 | PROVIDERS: Visit Provider Physician Assistant | DX: M25.531 Pain in right wrist (principal) | CPT/HCPCS: 97763 ==

== ENCOUNTER → 2021-05-20 14:36 | Outpatient (CLI) | payer BC, SELFPAY | PROVIDERS: Visit Provider Physician Assistant | DX: M25.50 Pain in unspecified joint (principal) | CPT/HCPCS: 80053; 85025; 85651; 86140; 86200; 86225; 86235; 86431 ==

== ENCOUNTER → 2021-05-26 15:35 | Outpatient (CLI) | payer BC, SELFPAY ==
--- NOTE | 2021-05-26 15:38 | MM_ITS ---
PROCEDURE INFORMATION: Exam: MG Bilateral Screening 3D Mammography Exam date and time: 05/26/2021 3:38 PM Age: 50 years old Clinical indication: Encounter for screening mammogram for malignant neoplasm of breast TECHNIQUE: Imaging protocol: Bilateral screening tomosynthesis and 2D mammography including computer-aided detection (CAD) when performed. COMPARISON: 1. MG MM DIG SCREENING MAMM BI W/CAD 05/09/2020 4:45 PM 2. MG MM DIG SCREENING MAMM BI W/CAD 03/01/2019 5:07 PM FINDINGS: MAMMOGRAPHY: Breast composition: The breast tissue is extremely dense, limiting the sensitivity of mammography. Mass: None. Architectural distortion: None. Calcifications: No suspicious calcifications. Asymmetric density: None. Skin thickening: None. Axillary adenopathy: None. IMPRESSION: No mammographic evidence of malignancy. Annual screening is recommended unless otherwise clinically indicated. ASSESSMENT: BI-RADS Category 1: Negative
== END ==
PROVIDERS: PCP Physician Assistant; Visit Provider Physician Assistant
DX: Z12.31 Encounter for screening mammogram for malignant neoplasm of breast (principal)
CPT/HCPCS: 77063; 77067

== ENCOUNTER → 2021-06-06 09:43 | Outpatient (CLI) | payer BC, SELFPAY ==
--- NOTE | 2021-06-06 09:59 | MR_ITS ---
PROCEDURE: MR SHOULDER LT WO CON CLINICAL INDICATION: PAIN IN LEFT SHOULDER COMPARISON: MR MR SHOULDER LT W CON from 03/14/2019 MR MR SHOULDER LT W CON from 01/02/2020 TECHNIQUE: Routine multiplanar multi echo sequences are performed without gadolinium enhancement. FINDINGS: Teres minor and infraspinatus tendon is intact. There postsurgical changes in the supraspinatus region within the infra clavicular area with heterogeneous areas of decreased and increased T2 signal. There is increased T2 signal involving the mid to distal aspect of the supraspinatus tendon consistent with tendinopathy/tendinosis. Cannot exclude the possibility of a partial tear. There is a small shoulder joint effusion. Subchondral cyst involves the humeral head as before. The subscapularis tendon is intact. Bicipital tendon is not identified in the bicipital groove. There is a defect in the proximal femur consistent with bicipital transfer. Prior acromioclavicular osteotomy. Small amount fluid is present in the AC joint. Mild subacromial stenosis of 5 mm. No obvious labral tear. IMPRESSION: Heterogeneous signal in the infraclavicular region which may be due to postsurgical changes. Increased T2 signal of the supraspinatus in its mid to distal aspect suggesting tendinopathy/tendinosis. A partial tear would be included in the differential diagnosis. Dictated by: Zafar Osorio MD 06/09/2021 14:19 Zafar Osorio MD in [place] 06/09/2021 14:19
== END ==
PROVIDERS: PCP Physician Assistant; Visit Provider Orthopaedic Surgery Adult Reconstructive Orthopaedic Surgery
DX: M25.512 Pain in left shoulder (principal)
CPT/HCPCS: 73221

== ENCOUNTER → 2022-03-23 14:29 | Outpatient (CLI) | payer BC, SELFPAY | PROVIDERS: PCP Physician Assistant; Visit Provider Internal Medicine | DX: Z01.818 Encounter for other preprocedural examination (principal); Z20.822 Contact with and (suspected) exposure to COVID-19 | CPT/HCPCS: C9803; U0003; U0005 ==

== ENCOUNTER 2022-04-02 10:20 | Day surgery (SDC) | payer BC, SELFPAY ==
[2022-03-16 13:59] VITALS: BMI 25.7
[2022-04-02 11:29] VITALS: BP 124/71; PULSE 88; RESP 18; TEMP 36.2; O2SAT 100
--- NOTE | 2022-04-02 12:44 | EXP.ANES.CKL ---
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 Depression Gastroesophageal reflux disease Insomnia Osteoarthritis Psoriasis Vitamin D deficiency (~11/24/17) Surgical History History of partial hysterectomy History of tubal ligation Hx of shoulder surgery Family History Other Colon cancer Family history of diabetes mellitus type II Family history of myocardial infarction Social History Smoking Status: Current every day smoker tobacco type: cigarettes packs per day: 1 pack-years: 30 years smoked: 30 second hand exposure: No alcohol intake: current substance use type: denies use current occupational status: other Travel in the last 8 weeks: None household members: other housing: house marital status: single education level: high school current occupational exposures/hazards: No caffeine: No special hakeem needs: No agree to transfusion: No do you feel safe at home: Yes victim of physical abuse: No victim of emotional abuse: No victim of sexual abuse: No would you like helpful sources: No [facility] Anesthesia Checklist Patient Identification Patient Identification: Arm Band and Family Structural Data Admitted From: Direct Admit Planned Operative Procedure/s: colonoscopy Consent for Planned Operative Procedure(s) Verified: Yes Verified Documents: Surgical Consent and History and Physical NPO Status Verified Time NPO: 00:00 Additional verifications Patient : No Anesthesia Reactions: No Hx Blood Transfusions: No Blood Transfusion Reaction: No Cephalosporin Allergy: No Previous Colonoscopy: No Airway Assessment C-Spine Mobility Assessed: Yes TMJ Mobility Assessed: Yes Dentition: Good Dentition Neurological Assessment Level of Consciousness: Awake, Alert, Appropriate and Follows Commands Hx Seizures: No Numbness or tingling in extremities: No Anesthesia Plan Anesthesia Risk discussed: Yes ASA Class: II Anesthesia Type: MAC
[2022-04-02 12:51] VITALS: O2SAT 97
--- NOTE | 2022-04-02 13:03 | HMH.SCOPE ---
Procedure: Date: 04/02/22 Patient Date of :: 1970 Procedure Performed:: Diagnostic colonoscopy Indications:: Rectal bleeding, family hx of colon cancer Performing Provider:: Althea Lilly MD Referring Provider:: Lexii Medel Sedation:: Propofol Procedure:: After placing the patient in the left lateral decubitus position, the colonoscopy was gently inserted into the rectum and under direct visualization advanced to the cecum which was identified by transillumination in the right lower quadrant, identification of the ileocecal valve, appendiceal orifice, and cecal strap. Color, texture, mucosa, and anatomy of the colon were carefully examined with the scope. Findings:: Anal canal: normal Rectum: normal Sigmoid colon: normal without polyps or inflammatory changes Descending colon: normal without polyps or inflammatory changes Splenic flexure: normal Transverse colon: normal without polyps or inflammatory changes Hepatic flexure: normal Ascending colon: normal without polyps or inflammatory changes Cecum: normal Terminal ileum: not visualized Impression: Normal colonoscopy Recommendations:: Follow up exam in about FIVE years or so in view of family history Complications:: None Estimated blood obtained (mL): 0
[2022-04-02 13:08] VITALS: BP 107/62; PULSE 82; RESP 17; TEMP 36.4; O2SAT 98
[2022-04-02 13:18] VITALS: BP 110/68; PULSE 83; RESP 18; O2SAT 99
[2022-04-02 13:28] VITALS: BP 119/77; PULSE 75; RESP 17; O2SAT 99
[2022-04-02 13:38] VITALS: BP 120/77; PULSE 76; RESP 17; O2SAT 99
== END 2022-04-02 14:00 | disposition home or self-care (01) ==
PROVIDERS: PCP Physician Assistant; Visit Provider Internal Medicine Gastroenterology
PROC: 0DJD8ZZ Inspection of Lower Intestinal Tract, Via Natural or Artificial Opening Endoscopic (ICD-10-PCS; CPT 45378; principal; 2022-04-02 11:30)
DX: K62.5 Hemorrhage of anus and rectum (principal); Z80.0 Family history of malignant neoplasm of digestive organs; Z72.0 Tobacco use; Z79.899 Other long term (current) drug therapy
CPT/HCPCS: 45378

== ENCOUNTER 2022-04-28 10:26 | Emergency (ER) | payer BC, SELFPAY ==
[2022-04-28 11:20] VITALS: BP 137/79; PULSE 92; RESP 20; TEMP 36.7; O2SAT 98; BMI 26.5
--- NOTE | 2022-04-28 11:35 | EXP.UTC ---
Discharge Plan Disposition Patient Disposition: Home, Self-Care Condition: Good Prescriptions Prescriptions: New benzonatate 100 mg capsule 100 mg PO TID PRN (Reason: cough) Qty: 30 0RF azithromycin [Zithromax Z-Cayetano] 250 mg tablet See Rx Instructions .ROUTE .COMPLEX 5 Days Qty: 6 0RF Rx Instructions: For 250 mg dose pack: take 500 mg today (day 1), then 250 mg for 4 days (days 2-5) methylprednisolone [Medrol (Cayetano)] 4 mg tablets,dose pack See Rx Instructions .Route .COMPLEX 6 Days Qty: 21 0RF Rx Instructions: taper pack; No Action hydrocortisone [Proctocort] 1 % cream 1 applic topical TID PRN (Reason: itching) Qty: 28.4 0RF polyethylene glycol 3350 [Miralax] 17 gram/dose powder 17 g PO DAILY Qty: 238 2RF meloxicam 7.5 mg tablet See Rx Instructions .ROUTE .COMPLEX Qty: 30 0RF Dose Instruction: TAKE ONE TABLET BY MOUTH ONCE A DAY Rx Instructions: TAKE ONE TABLET BY MOUTH ONCE A DAY sucralfate 1 gram tablet See Rx Instructions .ROUTE .COMPLEX Qty: 90 0RF Dose Instruction: TAKE ONE TABLET BY MOUTH 3 TIMES A DAY Rx Instructions: TAKE ONE TABLET BY MOUTH 3 TIMES A DAY lorazepam 1 mg tablet 1 mg PO Q8H Qty: 90 0RF omeprazole 40 mg capsule,delayed release(DR/EC) 40 mg PO DAILY Rx Instructions: TAKE ONE CAPSULE BY MOUTH ONCE A DAY ghlftvoa-[id number]-[id number]-C-carlotta-bosw 500-416.6-20 mg tablet 1 tab PO DAILY Rx Instructions: TAKE ONE TABLET BY MOUTH 2 TIMES A DAY WITH MEALS magnesium 200 mg Tablet 400 mg PO DAILY melatonin 10 mg Tablet 20 mg PO HS PRN (Reason: Sleep) venlafaxine 75 mg capsule,extended release 24hr See Rx Instructions .ROUTE .COMPLEX Rx Instructions: TAKE ONE CAPSULE BY MOUTH ONCE A DAY ergocalciferol (vitamin D2) 1,250 mcg (50,000 unit) capsule See Rx Instructions .ROUTE .COMPLEX Rx Instructions: TAKE ONE CAPSULE BY MOUTH EVERY WEEK loratadine 10 mg tablet See Rx Instructions .ROUTE .COMPLEX Rx Instructions: TAKE ONE TABLET BY MOUTH ONCE A DAY cholecalciferol (vitamin D3) 25 mcg (1,000 unit) tablet See Rx Instructions .ROUTE .COMPLEX Rx Instructions: TAKE ONE TABLET BY MOUTH ONCE A DAY Referrals Follow up/Referrals: Lexii Medel PA [Primary Care Provider] - See instructions Activity Restrictions/Add. Instructions Additional Instructions/Restrictions: *Monitor Temp, Over the counter Motrin or Tylenol as directed/as needed Tylenol every 4 hours and Motrin every 6 hours (as long as your family doctor has told you that you can take it) for fever or pain. and straight to ER if unable to lower temp less than 101.0 after medication given *Warm salt water gargles may help to soothe the throat *Throat Lozenges? *Warm fluids like tea with honey may help to soothe the throat? *Sleep elevated Your throat swab was sent for culture. Those results are typically sent to your primary care. Be sure to follow up in 2-3 days with your family doctor/primary care physician if no improvement so they can review those result and treat if necessary. If you don?t have a primary care doctor, I recommend you get one but in the mean time, you will have to return to a walk in clinic Follow up IMMEDIATELY for new or worsening symptoms or no Noticeable improvement over the next 48-72 hours. 911 for difficulty breathing or swallowing Clinical Impressions Clinical Impression: URI (upper respiratory infection) Instructions Patient Instructions: Sore Throat, DI for Sinusitis Discharge ED Provider: Jennifer Guevara [facility] [place] HPI General Stated complaint: sore throat, cough, body aches, congestion Time Seen by Provider: 04/28/22 11:35 History of Present Illness Provider Complaint: Patient states that she has been having sore throat, sinus and head congestion, states that she feels like it is trying to move into her chest States that
[2022-04-28 11:37] LABS: UTC Strep Screen (Rapid) Negative (Negative)
[2022-04-28 11:38] LABS: UTC Influenza A Antigen Negative (Negative); UTC Influenza B Antigen Negative (Negative)
[2022-04-28 11:49] VITALS: BP 137/79; PULSE 92; RESP 20; TEMP 36.7; O2SAT 98
== END 2022-04-28 11:55 | disposition home or self-care (01) ==
PROVIDERS: Emergency Provider Nurse Practitioner; PCP Physician Assistant
DX: J02.9 Acute pharyngitis, unspecified (principal); R05.9 Cough, unspecified; M79.10 Myalgia, unspecified site; G47.00 Insomnia, unspecified; L40.9 Psoriasis, unspecified; E55.9 Vitamin D deficiency, unspecified; K64.8 Other hemorrhoids; M19.90 Unspecified osteoarthritis, unspecified site; D23.5 Other benign neoplasm of skin of trunk; F32.A Depression, unspecified; F41.9 Anxiety disorder, unspecified; Z79.52 Long term (current) use of systemic steroids; Z79.899 Other long term (current) drug therapy; Z85.038 Personal history of other malignant neoplasm of large intestine
CPT/HCPCS: 87804; 87880; 99213; G0463

== ENCOUNTER 2022-06-05 08:46 | Emergency (ER) | payer BC, SELFPAY ==
[2022-06-05] VITALS (7 sets, daily range): BP systolic 111–133; BP diastolic 77–85; PULSE 77–95; RESP 15–18; TEMP 36.6–36.8; O2SAT 96–100; BMI 26.5
--- NOTE | 2022-06-05 08:43 | ECG_ITS ---
APPROVED REPORT Exam: Resting ECG HR:99 bpm ECG Measurements Heart Rate 99 AXES SD 157 P 57 QRSd 114 QRS 16 QT 379 T 62 QTc 435 Conclusion SINUS RHYTHM POSSIBLE LEFT ATRIAL ENLARGEMENT [-0.1mV P-WAVE IN V1/V2] INCOMPLETE RIGHT BUNDLE BRANCH BLOCK [90+ ms QRS DURATION, TERMINAL R IN V1/V2, 40+ ms S IN I/aVL/V4/V5/V6] BORDERLINE ECG UNCONFIRMED REPORT Electronically signed by : Daren Kincaid MD 06/05/2022 16:43:42
--- NOTE | 2022-06-05 08:48 | CT_ITS ---
FINAL REPORT TECHNIQUE: Postcontrast axial images of the chest were performed in a CTA protocol. This study was performed with techniques to keep radiation doses as low as reasonably achievable, (ALARA). Individualized dose reduction technique using automated exposure control or adjustment of mA and/or kV according to the patient's size were employed. CLINICAL HISTORY: chest pain radiating to L shoulder FINDINGS: The heart is normal in size. No adenopathy is identified. No pleural or pericardial effusion is identified. The thoracic aorta is normal in caliber with no focal aneurysm or dissection identified. There is no filling defect to suggest pulmonary embolism. There is mild atelectasis. No lung infiltrate or mass is identified. The images of the upper abdomen demonstrate mild fatty infiltration of the liver. IMPRESSION: No evidence for PE on this exam. Mild atelectasis. Reviewed, Interpreted and Dictated by Juan David Allen III, MD Transcribed by Stephanie Kraus Authenticated and [facility]
--- NOTE | 2022-06-05 08:48 | XR_ITS ---
FINAL REPORT TECHNIQUE: Single view chest CLINICAL HISTORY: Left chest pain FINDINGS: A single view of the chest was obtained. The heart and mediastinum are within normal limits. There is mild atelectasis. The lungs are otherwise clear. There is no pneumothorax. Osseous structures are unremarkable. IMPRESSION: No acute cardiopulmonary process. Reviewed, Interpreted and Dictated by Juan David Allen III, MD Transcribed by Stephanie Kraus Authenticated and [facility]
--- NOTE | 2022-06-05 08:52 | HMH.EDGENADL ---
Discharge Plan Disposition Patient Disposition: Home, Self-Care Condition: Good Chief Complaint: Chest Pain Prescriptions Prescriptions: No Action hydrocortisone [Proctocort] 1 % cream 1 applic topical TID PRN (Reason: itching) Qty: 28.4 0RF polyethylene glycol 3350 [Miralax] 17 gram/dose powder 17 g PO DAILY Qty: 238 2RF sucralfate 1 gram tablet See Rx Instructions .ROUTE .COMPLEX Qty: 90 0RF Dose Instruction: TAKE ONE TABLET BY MOUTH 3 TIMES A DAY Rx Instructions: TAKE ONE TABLET BY MOUTH 3 TIMES A DAY meloxicam 7.5 mg tablet See Rx Instructions .ROUTE .COMPLEX Qty: 30 2RF Dose Instruction: TAKE ONE TABLET BY MOUTH ONCE A DAY Rx Instructions: TAKE ONE TABLET BY MOUTH ONCE A DAY lorazepam 1 mg tablet 1 mg PO Q8H Qty: 90 0RF lpckiwyn-pqio-bao5-C-carlotta-bosw 500-416.6-20 mg tablet See Rx Instructions .ROUTE .COMPLEX Qty: 50 3RF Dose Instruction: TAKE ONE TABLET BY MOUTH 2 TIMES A DAY WITH MEALS Rx Instructions: TAKE ONE TABLET BY MOUTH 2 TIMES A DAY WITH MEALS omeprazole 40 mg capsule,delayed release(DR/EC) 40 mg PO DAILY Rx Instructions: TAKE ONE CAPSULE BY MOUTH ONCE A DAY magnesium 200 mg Tablet 400 mg PO DAILY melatonin 10 mg Tablet 20 mg PO HS PRN (Reason: Sleep) venlafaxine 75 mg capsule,extended release 24hr See Rx Instructions .ROUTE .COMPLEX Rx Instructions: TAKE ONE CAPSULE BY MOUTH ONCE A DAY ergocalciferol (vitamin D2) 1,250 mcg (50,000 unit) capsule See Rx Instructions .ROUTE .COMPLEX Rx Instructions: TAKE ONE CAPSULE BY MOUTH EVERY WEEK loratadine 10 mg tablet See Rx Instructions .ROUTE .COMPLEX Rx Instructions: TAKE ONE TABLET BY MOUTH ONCE A DAY cholecalciferol (vitamin D3) 25 mcg (1,000 unit) tablet See Rx Instructions .ROUTE .COMPLEX Rx Instructions: TAKE ONE TABLET BY MOUTH ONCE A DAY benzonatate 100 mg capsule 100 mg PO TID PRN (Reason: cough) Qty: 30 0RF azithromycin [Zithromax Z-Cayetano] 250 mg tablet See Rx Instructions .ROUTE .COMPLEX 5 Days Qty: 6 0RF Rx Instructions: For 250 mg dose pack: take 500 mg today (day 1), then 250 mg for 4 days (days 2-5) methylprednisolone [Medrol (Cayetano)] 4 mg tablets,dose pack See Rx Instructions .Route .COMPLEX 6 Days Qty: 21 0RF Rx Instructions: taper pack; Clinical Impressions Clinical Impression: Chest pain Discharge ED Provider: Dakota Delgado General Adult HPI General Chief complaint: Chest Pain Stated complaint: chest pain Time Seen by Provider: 06/05/22 08:52 History of Present Illness HPI narrative: Patient is a 51-year-old female with past medical history of chronic left shoulder pain who presents emergency department for evaluation of chest pain. Onset was acute, occurring on Wednesday. Substernal, radiating to her left shoulder. Patient denies cough, fevers, abdominal pain. Symptoms are moderate to severe in intensity. Symptoms radiate to her left shoulder blade and down her left upper extremity. Due to worsening chest pain she presents here for continued evaluation. Related Data Home Medications Medication Instructions Recorded Confirmed omeprazole 40 mg capsule,delayed 40 mg PO DAILY GERD 03/16/22 04/22/22 release cholecalciferol (vitamin D3) 25 See Rx Instructions .Route 04/02/22 04/22/22 mcg (1,000 unit) tablet .COMPLEX vitamin ergocalciferol (vitamin D2) 1,250 See Rx Instructions .Route 04/02/22 04/22/22 mcg (50,000 unit) capsule .COMPLEX vitamin loratadine 10 mg tablet See Rx Instructions .Route 04/02/22 04/22/22 .COMPLEX allergies magnesium 200 mg tablet 400 mg PO DAILY Supplement 04/02/22 04/22/22 melatonin 10 mg tablet 20 mg PO HS PRN Sleep 04/02/22 04/22/22 venlafaxine 75 mg capsule,extended See Rx Instructions .Route 04/02/22 04/22/22 release 24 hr .COMPLEX Depression Previous Rx's Medication Instructions Recorded sucralfate
[2022-06-05 09:11] LABS: Basophils # 0.1 K/mm3 (0-0.2); Basophils % 1.4 % (0.1-2.0); Chloride 101 mmol/L (98-107); Eosinophils # 0.3 K/mm3 (0.0-0.4); Eosinophils % 3.3 % (0.1-12.0); Hematocrit 44.4 % (37.0-47.0); Hemoglobin 14.3 g/dL (12.2-16.2); Lymphocytes # 1.7 K/mm3 (0.7-4.5); Lymphocytes % 17.5 % (10-50); Mean Corpuscular HGB Conc 32.3 g/dL (31.8-35.4); Mean Corpuscular Hemoglobin 29.2 pg (27.0-31.2); Mean Corpuscular Volume 90.6 fl (81-99); Mean Platelet Volume 9.4 fl (7.4-10.4); Monocytes # 0.4 K/mm3 (0.1-1.0); Monocytes % 4.5 % (1.7-9.3); Neutrophils # 7.2 K/mm3 (1.8-7.8); Neutrophils % 73.3 % (37.0-80.0); Platelet Count 333 K/mm3 (142-424); Red Cell Distribution Width 12.7 % (11.5-17.5); Sodium 140 mmol/L (136-145); White Blood Count 9.9 K/mm3 (4.8-10.8)
[2022-06-05 09:12] LABS: Potassium 4.1 mmoL/L (3.5-5.1)
[2022-06-05 09:14] LABS: Alanine Aminotransferase 24 U/L (12-78); Albumin Level 4.9 g/dl (3.5-5.0); Albumin/Globulin Ratio 1.5 (1.1-1.8); Alkaline Phosphatase 99 U/L (38-126); Anion Gap 14.1 mEq/L (5-15); Aspartate Amino Transferase 35 U/L (14-36); Bilirubin,Total 0.3 mg/dl (0.2-1.3); Blood Urea Nitrogen 17 mg/dl (7-17); Calcium 10.4 mg/dl (8.4-10.2); Carbon Dioxide 29 mmol/L (22.0-30.0); Creatinine Clearance Estimated 81 mL/min (50-200); Estimated Glomerular Filt Rate 67 ml/min (>60); GFR (African American) 81 ML/MIN (>60); Globulin 3.3 g/dL (1.3-3.2); Glucose 114 mg/dl (74-100); Total Protein,Serum 8.2 g/dl (6.3-8.2)
[2022-06-05 09:42] LABS: Troponin I < 0.01 ng/ml (0.00-0.034)
--- NOTE | 2022-06-05 10:10 | PC.NURSE ---
pt in ct
[2022-06-05 11:10] LABS: Coronavirus 19, PCR Not Detected (NotDetected); Influenza A, PCR Not Detected (NotDetected); Influenza B, PCR Not Detected (NotDetected)
--- NOTE | 2022-06-05 11:15 | PC.NURSE ---
pt resting in bed, additional warm blanket given to pt
--- NOTE | 2022-06-05 12:15 | PC.NURSE ---
pt up to restroom and updated that we were waiting on her 2nd troponin results
[2022-06-05 12:35] LABS: Troponin I < 0.01 ng/ml (0.00-0.034)
== END 2022-06-05 13:02 | disposition home or self-care (01) ==
PROVIDERS: Emergency Provider Emergency Medicine; PCP Physician Assistant
DX: R07.2 Precordial pain (principal); M25.512 Pain in left shoulder; G89.29 Other chronic pain; R05.9 Cough, unspecified; Z20.822 Contact with and (suspected) exposure to COVID-19; D21.3 Benign neoplasm of connective and other soft tissue of thorax; M19.90 Unspecified osteoarthritis, unspecified site; K64.8 Other hemorrhoids; G47.00 Insomnia, unspecified; E55.9 Vitamin D deficiency, unspecified; L40.9 Psoriasis, unspecified; F32.A Depression, unspecified; F41.9 Anxiety disorder, unspecified; F17.210 Nicotine dependence, cigarettes, uncomplicated; Z79.52 Long term (current) use of systemic steroids; Z82.49 Family history of ischemic heart disease and other diseases of the circulatory system; Z80.0 Family history of malignant neoplasm of digestive organs; Z83.3 Family history of diabetes mellitus
CPT/HCPCS: 36415; 71045; 71275; 80053; 84484; 85025; 93005; 96360; 99285; C9803; Q9967; U0003; U0005

== ENCOUNTER → 2022-06-22 07:59 | Outpatient (CLI) | payer BC, SELFPAY ==
--- NOTE | 2022-06-22 08:23 | MM_ITS ---
PROCEDURE INFORMATION: Exam: MG Bilateral Screening 3D Mammography Exam date and time: 06/22/2022 8:26 AM Age: 51 years old Clinical indication: Screening. No family history of breast cancer. TECHNIQUE: Imaging protocol: Bilateral Screening tomosynthesis and 2D mammography including computer-aided detection (CAD) when performed. COMPARISON: 1. MG MM DIG SCREENING MAMM BI W/CAD 05/26/2021 3:49 PM 2. MG MM DIG SCREENING MAMM BI W/CAD 05/09/2020 4:45 PM 3. MG MM DIG SCREENING MAMM BI W/CAD 03/01/2019 5:07 PM 4. MG DMSB DIG MAMM-SCREEN HUANG 04/21/2016 4:54 PM FINDINGS: MAMMOGRAPHY: Breast composition: The breasts are heterogeneously dense, which may obscure small masses. Mass: None. Architectural distortion: None. Calcifications: No suspicious calcifications. Asymmetric density: None. Skin thickening: None. Axillary adenopathy: None. IMPRESSION: No mammographic evidence of malignancy. Annual screening is recommended unless otherwise clinically indicated. ASSESSMENT: BI-RADS Category 1: Negative
== END ==
PROVIDERS: PCP Physician Assistant; Visit Provider Physician Assistant
DX: Z12.31 Encounter for screening mammogram for malignant neoplasm of breast (principal)
CPT/HCPCS: 77063; 77067

== ENCOUNTER → 2022-09-14 14:46 | Outpatient (CLI) | payer BC, SELFPAY | PROVIDERS: PCP Physician Assistant; Visit Provider Physician Assistant | DX: G47.9 Sleep disorder, unspecified (principal); R06.83 Snoring | CPT/HCPCS: G0399 ==

== ENCOUNTER 2022-10-22 16:09 | Emergency (ER) | payer BC, SELFPAY ==
[2022-10-22] VITALS (8 sets, daily range): BP systolic 112–159; BP diastolic 70–82; PULSE 77–143; RESP 16–20; TEMP 36.6; O2SAT 97–100; BMI 27.4
--- NOTE | 2022-10-22 16:45 | CT_ITS ---
PROCEDURE INFORMATION: Exam: CT Abdomen And Pelvis With Contrast Exam date and time: 10/22/2022 5:14 PM Age: 52 years old Clinical indication: Abdominal pain; Localized; Right lower quadrant (rlq); Additional info: Rlq pain TECHNIQUE: Imaging protocol: Computed tomography of the abdomen and pelvis with contrast. Radiation optimization: All CT scans at this facility use at least one of these dose optimization techniques: automated exposure control; mA and/or kV adjustment per patient size (includes targeted exams where dose is matched to clinical indication); or iterative reconstruction. Contrast material: ISOVUE; Contrast volume: 75 ml; Contrast route: IV; REPORTING DATA: Count of CT and Cardiac NM exams in prior 12 months: This patient has received [address] and 0 known cardiac nuclear medicine studies in the 12 months prior to the current study. COMPARISON: ABDPE CT abdomen pelvis w con 12/11/2018 2:42 AM FINDINGS: Lungs: There is a nonspecific 4.4 mm subpleural nodular density in the left lower lobe. The visualized lung bases are clear. Pleural spaces: There are no pleural effusions. Heart: The visualized portions of the heart are unremarkable. There is a trace amount of pericardial fluid. Liver: There is diffuse decrease in hepatic/liver parenchymal density consistent with fatty infiltration. Gallbladder and bile ducts: The gallbladder is normal. Pancreas: The pancreas is normal. Spleen: The spleen demonstrates punctate calcifications, consistent with remote granulomatous organism exposure. Adrenal glands: The adrenal glands are normal. Kidneys and ureters: There is a subcentimeter focal left renal hypodensity that cannot be further characterized on the current examination. Statistically, this is likely a cyst. There is mild renal cortical scarring involving the inferior left kidney. The kidneys are otherwise normal. Stomach and bowel: Lack of gastrointestinal contrast limits evaluation of bowel. There is mildly excessive colonic stool content. Unopacified loops of small bowel are within range of normal. Apparent gastric mural thickening could be on the basis of incomplete distension but cannot exclude gastritis or other inflammatory or infiltrative process. Correlate clinically. The duodenum is unremarkable. Appendix: A normal appendix is identified. Intraperitoneal space: There is no evidence of free intraperitoneal or pelvic fluid. No evidence of intraperitoneal free air. Vasculature: No abdominal aortic aneurysm. The aorta demonstrates mild atherosclerotic calcification. Lymph nodes: No enlarged lymph nodes. Urinary bladder: The bladder is normal. Reproductive: The uterus is either atrophic or absent. The ovaries are normal. No adnexal cysts or masses are identified. Bones/joints: There are moderate degenerative changes of the symphyseal pubic joint. There are mild degenerative changes of the sacroiliac joints. The thoracolumbar spine demonstrates mild degenerative changes at multiple levels. There is no evidence of acute fracture. Subacute/remote fracture involving the right parasymphyseal inferior pubic ramus is present. Soft tissues: There is a tiny fat-containing umbilical hernia. No significant soft tissue edema. IMPRESSION: 1. Apparent mild gastric mural thickening could be on the basis of incomplete distension but cannot exclude gastritis or other inflammatory or infiltrative process. Correlate clinically 2. Fatty hepatic infiltration. 3. Mild constipation. 4. Tiny fat- containing umbilical hernia. 5. Nonspecific 4.4 mm subpleural nodular density in the left lower lobe. For patients at low risk (minimal
--- NOTE | 2022-10-22 16:46 | HMH.EDGENADL ---
Discharge Plan Disposition Patient Disposition: Still a Patient Condition: Good Prescriptions Prescriptions: New polyethylene glycol 3350 [Miralax] 17 gram/dose powder 17 g PO DAILY PRN (Reason: constipation) Qty: 238 0RF No Action polyethylene glycol 3350 [Miralax] 17 gram/dose powder 17 g PO DAILY Qty: 238 2RF venlafaxine 150 mg capsule,extended release 24hr 150 mg PO DAILY Qty: 30 2RF omeprazole 40 mg capsule,delayed release(DR/EC) 40 mg PO BID Qty: 60 2RF venlafaxine 75 mg capsule,extended release 24hr 150 mg PO DAILY cholecalciferol (vitamin D3) 25 mcg (1,000 unit) tablet See Rx Instructions .ROUTE .COMPLEX Qty: 30 0RF Dose Instruction: TAKE ONE TABLET BY MOUTH ONCE A DAY Rx Instructions: TAKE ONE TABLET BY MOUTH ONCE A DAY loratadine 10 mg tablet See Rx Instructions .ROUTE .COMPLEX Qty: 30 0RF Dose Instruction: TAKE ONE TABLET BY MOUTH ONCE A DAY Rx Instructions: TAKE ONE TABLET BY MOUTH ONCE A DAY ergocalciferol (vitamin D2) 1,250 mcg (50,000 unit) capsule See Rx Instructions .ROUTE .COMPLEX Qty: 4 0RF Dose Instruction: TAKE ONE CAPSULE BY MOUTH EVERY WEEK Rx Instructions: TAKE ONE CAPSULE BY MOUTH EVERY WEEK sulfasalazine 500 mg tablet,delayed release (DR/EC) 1 g PO BID 90 Days Qty: 360 2RF owkglccf-ngkr-zef5-C-carlotta-bosw 500-416.6-20 mg tablet See Rx Instructions .ROUTE .COMPLEX Qty: 50 0RF Dose Instruction: TAKE ONE TABLET BY MOUTH 2 TIMES A DAY WITH MEALS Rx Instructions: TAKE ONE TABLET BY MOUTH 2 TIMES A DAY WITH MEALS lorazepam 1 mg tablet 1 mg PO Q8H Qty: 90 0RF sucralfate 1 gram tablet 1 g PO QAC Qty: 90 2RF magnesium 200 mg Tablet 400 mg PO DAILY melatonin 10 mg Tablet 20 mg PO HS PRN (Reason: Sleep) Referrals Follow up/Referrals: Lexii Medel PA [Primary Care Provider] - See instructions Activity Restrictions/Add. Instructions Additional Instructions/Restrictions: Return for worsening abdominal pain fever vomiting or any other concerns within the next 8 hours. Take Tylenol at home as needed for pain. We are also providing you with a prescription for MiraLAX to use for constipation. Follow-up with your primary care physician within the next few days. I also recommend close follow-up with gynecology for your ovarian cyst. You have an incidental finding of a lung nodule on your CT scan, which we recommend outpatient follow-up. Clinical Impressions Clinical Impression: Abdominal pain, Constipation Ovarian cyst Qualifiers: Laterality: right Qualified Code(s): N83.201 - Unspecified ovarian cyst, right side Instructions Patient Instructions: DI for Ovarian Cyst, DI for Constipation, DI for Acute Abdominal Pain Discharge ED Provider: Nelsy Castro General Adult HPI <Neil Alejandro MD - Last Filed: 10/22/22 19:54> General Chief complaint: Abdominal Pain Stated complaint: Right side pain with nausea sent from [employer] Time Seen by Provider: 10/22/22 16:10 History of Present Illness HPI narrative: 52-year-old female presents with right lower quadrant pain. She says it came on suddenly today sharp and was radiating to her back. No vaginal bleeding or discharge. No migration of the pain. She has had nausea no vomiting. No diarrhea bleeding. No chest pain headache Related Data Home Medications Medication Instructions Recorded Confirmed magnesium 200 mg tablet 400 mg PO DAILY Supplement 04/02/22 10/22/22 melatonin 10 mg tablet 20 mg PO HS PRN Sleep 04/02/22 10/22/22 venlafaxine 75 mg capsule,extended 150 mg PO DAILY 10/22/22 10/22/22 release 24 hr Previous Rx's Medication Instructions Recorded polyethylene glycol 3350 17 17 g PO DAILY #238 grams 04/22/22 gram/dose oral powder (Miralax) cholecalciferol (vitamin D3) 25 See Rx Instructions .Route 07/09/22 mcg (1,000 unit) tablet .COMPLEX #30 tabs ergocalciferol (vitamin D2) 1,25
[2022-10-22 16:52] LABS: Microscopic, Urine URINE MICROSCOPIC (MICROSCOPIC)
[2022-10-22 17:05] LABS: Appearance,Urine CLEAR (Clear); Bilirubin,Urine Negative (Negative); Blood, Urine Negative (Negative); Color,Urine YELLOW (Yellow); Glucose,Urine (UA) Negative (Negative); Ketones,Urine Negative (Negative); Leukocyte Esterase,Urine Negative (Negative); Nitrate,Urine Negative (Negative); PH,Urine 6.5 (5.0-8.5); Protein,Urine Negative (Negative); Specific Gravity, Urine <= 1.005 (1.005-1.030); Urobilinogen,Urine 0.2 EU/dl (0.2)
[2022-10-22 17:06] LABS: Basophils # 0.1 K/mm3 (0-0.2); Eosinophils # 0.4 K/mm3 (0.0-0.4); Eosinophils % 4.1 % (0.1-12.0); Hematocrit 42.3 % (37.0-47.0); Hemoglobin 13.1 g/dL (12.2-16.2); Lymphocytes # 1.7 K/mm3 (0.7-4.5); Lymphocytes % 16.9 % (10-50); Mean Corpuscular Hemoglobin 28.4 pg (27.0-31.2); Mean Corpuscular Volume 91.6 fl (81-99); Mean Platelet Volume 7.7 fl (7.4-10.4); Monocytes # 0.5 K/mm3 (0.1-1.0); Monocytes % 4.9 % (1.7-9.3); Neutrophils # 7.2 K/mm3 (1.8-7.8); Neutrophils % 73.1 % (37.0-80.0); Platelet Count 245 K/mm3 (142-424); Red Blood Count 4.61 M/mm3 (4.20-5.40); Red Cell Distribution Width 13.2 % (11.5-17.5); White Blood Count 9.8 K/mm3 (4.8-10.8)
[2022-10-22 17:10] LABS: Chloride 96 mmol/L (98-107)
[2022-10-22 17:11] LABS: Sodium 139 mmol/L (136-145)
[2022-10-22 17:11] LABS: Squamous Epithelial Cell,Urine Occasional #/hpf (0-5)
[2022-10-22 17:13] LABS: Alanine Aminotransferase 35 U/L (12-78); Alkaline Phosphatase 92 U/L (38-126); Aspartate Amino Transferase 43 U/L (14-36); Bilirubin,Total 0.4 mg/dl (0.2-1.3); Blood Urea Nitrogen 17 mg/dl (7-17); Creatinine Clearance Estimated 93 mL/min (50-200); Estimated Glomerular Filt Rate 76 ml/min (>60); GFR (African American) 92 ML/MIN (>60)
[2022-10-22 17:14] LABS: Albumin Level 4.8 g/dl (3.5-5.0); Albumin/Globulin Ratio 1.4 (1.1-1.8); Calcium 9.8 mg/dl (8.4-10.2); Carbon Dioxide 30 mmol/L (22.0-30.0); Globulin 3.5 g/dL (1.3-3.2); Glucose 91 mg/dl (74-100); Lipase 186 U/L (23-300); Total Protein,Serum 8.3 g/dl (6.3-8.2)
--- NOTE | 2022-10-22 18:12 | PC.NURSE ---
pt up to bathroom
--- NOTE | 2022-10-22 18:28 | PC.NURSE ---
called US tech in for us for rule out ovarian torsion
--- NOTE | 2022-10-22 18:30 | US_ITS ---
PROCEDURE INFORMATION: Exam: US Pelvis, Transvaginal Exam date and time: 10/22/2022 7:12 PM Age: 52 years old Clinical indication: Pelvic pain; Additional info: Rule out ovarian torsion TECHNIQUE: Imaging protocol: Real-time transvaginal pelvic ultrasound with image documentation. Transvaginal imaging was used for better evaluation of the endometrium, adnexa, and/or cervix. COMPARISON: CT ABDOMEN PELVIS W CON 10/22/2022 5:14 PM FINDINGS: Uterus: The uterus is not seen consistent with provided history of hysterectomy. Right ovary/adnexa: The right ovary measures 1.2 by 2.6 x 1.2 cm. The right ovary contains a central lucency measuring approximately 5.6 x 8.7 mm which may reflect small follicle/cyst. Flow is identified. Left ovary/adnexa: Left ovary is not definitively seen on transvaginal scanning due to overlying bowel gas. Left ovary is seen transabdominally and measures approximately 2.7 x 1.9 x 1.1 cm. Left ovary is not seen well enough to document vascular flow. Intraperitoneal space: No free fluid. IMPRESSION: 1. Status post hysterectomy. 2. Right ovary containing a 9 mm central lucency most likely reflecting small cyst/follicle. 3. Suboptimal evaluation of the left ovary. Vascular flow could not be confirmed.
--- NOTE | 2022-10-22 21:00 | PC.NURSE ---
Pt called out requesting pain medication. notified.
--- NOTE | 2022-10-22 21:11 | PC.NURSE ---
Pt rang out . Was given IV dilaudid for pain and began to feel anxious. Was requesting medication for her anxiety.
--- NOTE | 2022-10-22 21:27 | ECG_ITS ---
APPROVED REPORT Exam: Resting ECG HR:120 bpm ECG Measurements Heart Rate 120 AXES WV 163 P 67 QRSd 108 QRS 56 QT 341 T 64 QTc 412 Conclusion SINUS TACHYCARDIA ABNORMAL RHYTHM ECG UNCONFIRMED REPORT Electronically signed by : Daren Kincaid MD 10/24/2022 15:56:55
--- NOTE | 2022-10-22 21:40 | PC.NURSE ---
Patient rang out requesting discharge papers. States that she is feeling better and wants to go home.
== END 2022-10-22 21:54 | disposition still patient (30) ==
PROVIDERS: Emergency Medicine; Emergency Provider Emergency Medicine; PCP Physician Assistant
DX: N83.201 Unspecified ovarian cyst, right side (principal); F17.210 Nicotine dependence, cigarettes, uncomplicated; R10.31 Right lower quadrant pain
CPT/HCPCS: 74177; 76830; 80053; 81001; 83690; 85025; 93005; 96361; 96374; 96375; 99285; J2405; Q9967

== ENCOUNTER → 2022-11-10 08:45 | Outpatient (CLI) | payer BC, SELFPAY ==
--- NOTE | 2022-11-10 08:50 | IR_ITS ---
FINAL REPORT CLINICAL HISTORY: HIP PAIN. fluoro time: 1.02 FINDINGS: Arthrogram Right hip injection for MRI arthrogram HISTORY: Right hip pain. PROCEDURE: After informed consent was obtained, a time-out was performed. Utilizing local anesthesia and sterile technique, with direct fluoroscopic guidance, access to the joint was obtained . A small amount of contrast was injected to confirm needle tip location. Additional gadolinium contrast was injected. IMPRESSION: Status post injection for MRI arthrogram without immediate complication. Please see MRI report. FLUOROSCOPY TIME: 1 minute Films reviewed , interpreted and dictated by Dr. Allen Transcribed by Fawad Moreland PA-C. Reviewed, Interpreted and Dictated by Juan David Allen III, MD Transcribed by GONZALO Buenrostro Authenticated and [facility]
--- NOTE | 2022-11-10 08:50 | MR_ITS ---
FINAL REPORT CLINICAL HISTORY: HIP PAIN right hip dislocation FINDINGS: Multiplanar MR imaging of the right hip was performed after the intra-articular injection of dilute gadolinium solution. There is no evidence of fracture or dislocation. There is no evidence of avascular necrosis. No bony mass is identified. There is an anterior-superior labral tear. The tendons are intact. The musculature is intact. No soft tissue mass or cyst is identified. IMPRESSION: Anterior-superior labral tear. Reviewed, Interpreted and Dictated by Juan David Allen III, MD Transcribed by [place] Authenticated and [facility]
== END ==
PROVIDERS: PCP Physician Assistant; Visit Provider Orthopaedic Surgery Adult Reconstructive Orthopaedic Surgery
DX: M25.551 Pain in right hip (principal)
CPT/HCPCS: 73525; 73722; A9576; Q9967

== ENCOUNTER → 2022-12-03 14:46 | Outpatient (CLI) | payer BC, SELFPAY ==
--- NOTE | 2022-12-03 14:46 | CT_ITS ---
FINAL REPORT TECHNIQUE: Axial images were obtained from the lung apex to the mid abdomen by computed tomography. This study was performed with techniques to keep radiation doses as low as reasonably achievable (ALARA). Individualized dose reduction techniques using automated exposure control or adjustment of mA and/or kV according to the patient's size were employed. CLINICAL HISTORY: lung cancer screening, LLL nodule, f/h lung cancer COMPARISON: 10/22/2022 FINDINGS: CHEST CT LOW DOSE CTDI vol (mGy): 2.90 DLP (mGy-cm): 100.29 There is no axillary adenopathy. There is no hilar or mediastinal adenopathy. The heart is normal in size. There is no pericardial or pleural effusion. Note is made of mild scarring. There is a 4 mm nodule in the right lung apex, stable. Finding is best seen on image 11. Limited images of the upper abdomen are unremarkable. IMPRESSION: Stable nodule at the right lung apex. Lung RADS category 2. Recommend 12 month follow-up low-dose chest CT. Reviewed, Interpreted and Dictated by Juan David Allen III, MD Transcribed by Shanta Raphael Authenticated and [facility]
== END ==
PROVIDERS: PCP Physician Assistant; Visit Provider Physician Assistant
DX: Z87.891 Personal history of nicotine dependence (principal); Z12.2 Encounter for screening for malignant neoplasm of respiratory organs; R91.1 Solitary pulmonary nodule; Z80.1 Family history of malignant neoplasm of trachea, bronchus and lung
CPT/HCPCS: 71271

== ENCOUNTER 2023-12-04 16:36 | Emergency (ER) | payer BC, SELFPAY ==
[2023-12-04 16:38] VITALS: BP 123/82; PULSE 80; RESP 18; TEMP 37.1; O2SAT 96; BMI 28.3
[2023-12-04 16:47] VITALS: BMI 28.3
--- NOTE | 2023-12-04 16:47 | XR_ITS ---
PROCEDURE INFORMATION: Exam: XR Left Ankle Exam date and time: 12/04/2023 4:51 PM Age: 53 years old Clinical indication: Injury or trauma; Fall; Blunt trauma; Ankle; Left TECHNIQUE: Imaging protocol: Radiologic exam of the left ankle. Views: 3 or more views. COMPARISON: CR Lower leg L 12/04/2023 4:50 PM FINDINGS: Bones/joints: There is no evidence of acute fracture.There is no evidence of malalignment or dislocation. Soft tissues: Soft tissue swelling of the ankle. IMPRESSION: 1. There is no evidence of acute fracture.There is no evidence of malalignment or dislocation. 2. Soft tissue swelling of the ankle.
--- NOTE | 2023-12-04 16:47 | XR_ITS ---
PROCEDURE INFORMATION: Exam: XR Left Foot Exam date and time: 12/04/2023 4:53 PM Age: 53 years old Clinical indication: Injury or trauma; Fall; Blunt trauma; Foot; Left TECHNIQUE: Imaging protocol: Radiologic exam of the left foot. Views: 3 or more views. COMPARISON: CR Ankle L 12/04/2023 4:51 PM FINDINGS: Bones/joints: There is no evidence of acute fracture.There is no evidence of malalignment or dislocation. Degenerative changes in the IP joint Soft tissues: Soft tissue swelling of the ankle IMPRESSION: There is no evidence of acute fracture.There is no evidence of malalignment or dislocation.
--- NOTE | 2023-12-04 16:47 | XR_ITS ---
PROCEDURE INFORMATION: Exam: XR Left Tibia and Fibula Exam date and time: 12/04/2023 4:50 PM Age: 53 years old Clinical indication: Injury or trauma; Fall; Blunt trauma; Lower leg; Left TECHNIQUE: Imaging protocol: Radiologic exam of the left tibia and fibula. Views: 2 views. COMPARISON: No relevant prior studies available. FINDINGS: Bones/joints: There is no evidence of acute fracture.There is no evidence of malalignment or dislocation. Soft tissues: Soft tissue swelling of the ankle. IMPRESSION: 1. There is no evidence of acute fracture.There is no evidence of malalignment or dislocation. 2. Soft tissue swelling of the ankle.
--- NOTE | 2023-12-04 17:28 | PC.NURSE ---
Dr. Mane at BS for pt eval
--- NOTE | 2023-12-04 17:33 | ED_ITS ---
Discharge Plan Disposition Patient Disposition: Home, Self-Care Prescriptions Prescriptions: No Action atorvastatin 10 mg tablet 10 mg PO DAILY meloxicam 15 mg tablet 15 mg PO DAILY famotidine 40 mg tablet 40 mg PO DAILY venlafaxine 225 mg tablet extended release 24hr 225 mg PO DAILY Trulance 3 mg tablet 3 mg PO aripiprazole [Abilify] 2 mg tablet 2 mg PO HS Qty: 90 3RF onerbbkx-veip-[id number]-bosw 500-416.6-20 mg tablet See Rx Instructions .ROUTE .COMPLEX Qty: 50 5RF Dose Instruction: TAKE ONE TABLET BY MOUTH 2 TIMES A DAY WITH MEALS Rx Instructions: TAKE ONE TABLET BY MOUTH 2 TIMES A DAY WITH MEALS lorazepam 1 mg tablet 1 mg PO Q8H Qty: 90 0RF omeprazole 40 mg capsule,delayed release(DR/EC) See Rx Instructions .ROUTE .COMPLEX Qty: 180 3RF Dose Instruction: TAKE ONE CAPSULE BY MOUTH 2 TIMES A DAY Rx Instructions: TAKE ONE CAPSULE BY MOUTH 2 TIMES A DAY ergocalciferol (vitamin D2) 1,250 mcg (50,000 unit) capsule See Rx Instructions .ROUTE .COMPLEX Qty: 12 3RF Dose Instruction: TAKE 1 CAPSULE EVERY WEEK Rx Instructions: TAKE 1 CAPSULE EVERY WEEK sulfasalazine 500 mg tablet,delayed release (DR/EC) See Rx Instructions .ROUTE .COMPLEX Qty: 360 3RF Dose Instruction: TAKE 2 TABLETS (1 GRAM) TWICE A DAY Rx Instructions: TAKE 2 TABLETS (1 GRAM) TWICE A DAY cholecalciferol (vitamin D3) 25 mcg (1,000 unit) tablet See Rx Instructions .ROUTE .COMPLEX 90 Days Qty: 30 0RF Dose Instruction: TAKE ONE TABLET BY MOUTH ONCE A DAY Rx Instructions: TAKE ONE TABLET BY MOUTH ONCE A DAY magnesium 200 mg Tablet 400 mg PO DAILY melatonin 10 mg Tablet 20 mg PO HS PRN (Reason: Sleep) Referrals Follow up/Referrals: Jonas Cannon DO [Staff Physician] - See instructions Provider,Referral, [Primary Care Provider] - See instructions Activity Restrictions/Add. Instructions Additional Instructions/Restrictions: Wear your walking boot and crutches and you may bear weight as tolerated. If not improving in 1 to 2 weeks please follow-up with orthopedic surgeon for evaluation of possible MRI and surgical evaluation. Continue take Tylenol and ibuprofen ice the area and elevated as discussed. Clinical Impressions Clinical Impression: Ankle sprain, Foot sprain Discharge ED Provider: Edson Mane General Adult HPI General Chief complaint: Extremity Injury, Lower Stated complaint: AO 12-04-2023 Left ankle and right elbow Time Seen by Provider: 12/04/23 17:02 Mode of Arrival: Wheelchair Source of Information: Patient Limitations: No Limitations Description of Symptoms (Recalled from ER Triage Doc. by RN): left leg injury from fall History of Present Illness HPI narrative: Patient is a 53-year-old female presents today with left ankle injury after falling off of a step and having an inversion injury with significant pain and swelling over the left distal ankle and tib-fib and foot area. Denies injuries elsewhere. Related Data Home Medications Medication Instructions Recorded Confirmed magnesium 200 mg tablet 400 mg PO DAILY Supplement 04/02/22 06/07/23 melatonin 10 mg tablet 20 mg PO HS PRN Sleep 04/02/22 06/07/23 atorvastatin 10 mg tablet 10 mg PO DAILY 06/07/23 06/07/23 famotidine 40 mg tablet 40 mg PO DAILY 06/07/23 06/07/23 meloxicam 15 mg tablet 15 mg PO DAILY 06/07/23 06/07/23 plecanatide 3 mg tablet (Trulance) 3 mg PO 06/07/23 06/07/23 venlafaxine 225 mg tablet,extended 225 mg PO DAILY 06/07/23 06/07/23 release 24 hr Previous Rx's Medication Instructions Recorded aripiprazole 2 mg tablet (Abilify) 2 mg PO HS #90 tabs 12/29/22 glucosamine 500 la-[id number]-ohc See Rx Instructions .Route 01/07/23 no1 416.6 mg-C 20 rr-czdi-[id number] .COMPLEX #50 tabs tablet lorazepam 1 mg tablet 1 mg PO Q8H Anxiety #90 tabs 01/07/23 omeprazole 40 mg capsule,delayed See Rx Instructions .Route 02/21/23 release .COMPLEX #180 caps ergocalciferol (vitamin D2) 1,250 See Rx Instructions .Route 07/12/23 mcg (50,000 unit) capsule .COMPLEX #12 caps sulfasalazine 500 mg See Rx Instructions .Route 08/05/23 tablet,delayed release .COMPLEX #360 tabs cholecalciferol (vitamin D3) 25 See Rx Instructions .Route 09/06/23 mcg (1,000 unit) tablet .COMPLEX 90 days #30 tabs Allergies Allergy/AdvReac Type Severity Reaction Status Date / Time temazepam [From Restoril] AdvReac Severe suicidal Verified 06/07/23 13:15 seroquel AdvReac Severe worse Uncoded 06/07/23 13:15 anxiety PFSH [facility] Disclaimer: The information contained in this section may have been updated after the patient was seen, as this information can be updated by other users. 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 Osteoarthritis Gastroesophageal reflux disease Depression Insomnia Vitamin D deficiency (~11/24/17) Psoriasis Anxiety Surgical History Hx of removal of cyst History of tubal ligation History of partial hysterectomy Hx of shoulder surgery Family History Other Colon cancer Family history of diabetes mellitus type II Family history of myocardial infarction Social History Smoking Status: Current every day smoker tobacco type: cigarettes packs per day: 1 years smoked: 30 second hand exposure: No alcohol intake: current alcohol intake frequency: a few times a month substance use type: denies use current occupational status: employed Travel in the last 8 weeks: None household members: significant other housing: house marital status: single education level: high school current occupational exposures/hazards: No caffeine: No special hakeem needs: No agree to transfusion: No do you feel safe at home: Yes victim of physical abuse: No victim of emotional abuse: No victim of sexual abuse: No would you like helpful sources: No ROS Obtained: Yes All systems reviewed & no additional complaints except as documented Physical Exam General General appearance: alert Respiratory Respiratory exam: Present normal lung sounds bilaterally Cardiovascular Cardiovascular exam: Present regular rate and normal rhythm Extremities Exam Extremities exam: Present other (Tenderness to palpation with distal compression of the tib-fib location also swelling over the lateral and medial malleolus with tenderness and pain at the proximal and mid foot as well. Neurovascular intact) Neurological Exam Neurological exam: Present alert and oriented X3 Medical Decision Making Fito Inquiry Pt receiving controlled substance: No Vital Signs: 12/04/23 16:38 Temperature 98.7 F Temperature Source Oral Pulse Rate [Right] 80 Respiratory Rate 18 Blood Pressure [Right Arm] 123/82 Blood Pressure Mean [Right Arm] 95 02 Sat by Pulse Oximetry 96 Oxygen Delivery Method Room Air Orders (Tests/Meds): ED MEDICATIONS Generic Name Dose Route Start Last Admin Trade Name Freq PRN Reason Stop Dose Admin Acetaminophen 1,000 mg 12/04/23 17:32 Acetaminophen 500mg Tab PO 12/04/23 17:33 ONCE ONE Ibuprofen 600 mg 12/04/23 17:33 Ibuprofen 600 Mg Tablet PO 12/04/23 17:34 ONCE ONE ORDERS Category Date Time Status Ankle XR - Left minimum 3 Views [XR ankle LT min 3V] Exams 12/04/23 16:47 Taken Stat XR foot LT min 3V Stat Exams 12/04/23 16:47 Taken XR tibia fibula LT 2V Stat Exams 12/04/23 16:47 Taken Medical Decision Narrative: 53-year-old female with above history differential includes sprain fracture dislocation x-rays were performed of the tib-fib ankle and foot which I personally interpreted which do not show any fractures or dislocation working diagnosis is a sprain. He has been given a walking boot and crutches may bear weight as tolerated supportive care discussed orthopedic surgery referral made if she is not improving in 1 to 2 weeks. Critical Care Critical Care Time Critical Care Time: No
[2023-12-04] MEDS: ACETAMINOPHEN 500MG TAB 1000 MG PO (17:40)
[2023-12-04] MEDS: IBUPROFEN 600 MG TABLET PO (17:40)
[2023-12-04 17:46] VITALS: BP 104/61; PULSE 88; RESP 18; TEMP 36.9; O2SAT 96
--- NOTE | 2023-12-04 17:55 | PC.NURSE ---
The gentleman that accompanied pt to the ER was requesting to come back to pt's room after walking back out to the lobby. Registration called to ask about a visitor, we said yes, and he became agitated and left. He called on pt's cell and while we were in the room was able to hear him yelling and curse at pt that They won't let me back, I'm not coming back in there . House notified of these events. We let pt know that we did notify registration he could come back.
== END 2023-12-04 17:47 | disposition home or self-care (01) ==
PROVIDERS: Emergency Provider Student in an Organized Health Care Education/Training Program
DX: S93.402A Sprain of unspecified ligament of left ankle, initial encounter (principal); S93.602A Unspecified sprain of left foot, initial encounter; M25.572 Pain in left ankle and joints of left foot; F17.210 Nicotine dependence, cigarettes, uncomplicated; X50.1XXA Overexertion from prolonged static or awkward postures, initial encounter
CPT/HCPCS: 73590; 73610; 73630; 99283

== ENCOUNTER 2023-12-14 07:08 | Outpatient (CLI) | payer BC, SELFPAY ==
--- NOTE | 2023-12-14 07:21 | CT_ITS ---
FINAL REPORT TECHNIQUE: Axial CT images of the chest were obtained without contrast. Low-dose protocol was utilized. This study was performed with techniques to keep radiation doses as low as reasonably achievable (ALARA). Individualized dose reduction techniques using automated exposure control or adjustment of mA and/or kV according to the patient's size were employed. CLINICAL HISTORY: NICOTINE DEPENDENCE CURRENT SMOKER 1PPD X38 YEARS COMPARISON: 12/03/2022 FINDINGS: CT CHEST WITHOUT, LOW DOSE SCREENING CT Di Vol: 2.90 mGy DLP: 103.68 mGy*cm There is no axillary, mediastinal, or hilar adenopathy. The heart size is normal. There is no pleural or pericardial effusion. The lung windows show a stable oval nodule in the right lung apex measuring 5 x 2 mm. Limited images of the upper abdomen demonstrate no acute findings. IMPRESSION: LR Category 2: 12 month follow-up low-dose chest CT is recommended. Reviewed, Interpreted and Dictated by Laron Red MD Transcribed by Ni Lopez Authenticated and [facility]
== END 2023-12-14 23:59 | disposition home or self-care (01) ==
PROVIDERS: PCP Nurse Practitioner; Visit Provider Nurse Practitioner
DX: R91.1 Solitary pulmonary nodule (principal); Z72.0 Tobacco use
CPT/HCPCS: 71271

== ENCOUNTER 2023-12-20 14:18 | Outpatient (CLI) | payer BC, SELFPAY ==
--- NOTE | 2023-12-20 14:23 | XR_ITS ---
FINAL REPORT CLINICAL HISTORY: LT FOOT/ANKLE PAIN x 2 weeks COMPARISON: None FINDINGS: LEFT ANKLE: Three views of the left ankle were obtained. There is no acute fracture or dislocation. The joint spaces and mortise are intact. There is a small posterior calcaneal spur. Anterior and lateral soft tissue swelling is noted. IMPRESSION: Soft tissue swelling without acute bony abnormality. Reviewed, Interpreted and Dictated by Juan David Allen III, MD Transcribed by Ni Lopez Authenticated and [facility]
--- NOTE | 2023-12-20 14:23 | XR_ITS ---
FINAL REPORT CLINICAL HISTORY: LT FOOT/ANKLE PAIN x 2 weeks COMPARISON: None FINDINGS: LEFT FOOT: Three views of the left foot were obtained. There is no acute fracture or dislocation. The joint spaces are intact. There is no soft tissue abnormality. IMPRESSION: No acute bony abnormality. Reviewed, Interpreted and Dictated by Juan David Allen III, MD Transcribed by Ni Lopez Authenticated and [facility]
== END 2023-12-20 23:59 | disposition home or self-care (01) ==
LOC: RAD 14:19
PROVIDERS: PCP Nurse Practitioner; Visit Provider Nurse Practitioner
DX: M79.671 Pain in right foot (principal); M79.672 Pain in left foot
CPT/HCPCS: 73610; 73630

== ENCOUNTER 2024-02-03 15:18 | Outpatient (CLI) | payer BC, SELFPAY ==
[2024-02-03 14:50] LABS: Hemoglobin A1C 5.5 % (4.0-6.0)
[2024-02-03 15:08] LABS: Vitamin B12 767 pg/mL (239-931)
[2024-02-03 15:22] LABS: Iron 101 ug/dL (37-170)
[2024-02-03 15:32] LABS: Total Iron Binding Capacity 308 ug/dL (265-497)
[2024-02-03 17:01] LABS: Free Thyroxine Index 1.9 ug/dL (5.93-13.13); T4 (Thyroxine) 6.3 ug/dl (5.53-11.0); Triiodothryronine (T3) Uptake 30 % (23.5-40.5)
[2024-02-05 08:36] LABS: Thyroid Peroxidase Antibodies <9 IU/mL (0-34)
== END 2024-02-03 23:59 | disposition home or self-care (01) ==
LOC: LAB.DROPOF 15:18
PROVIDERS: PCP Nurse Practitioner Psychiatric/Mental Health; Visit Provider Nurse Practitioner Psychiatric/Mental Health
DX: R53.83 Other fatigue (principal); Z79.899 Other long term (current) drug therapy; Z00.00 Encounter for general adult medical examination without abnormal findings
CPT/HCPCS: 82607; 83036; 83540; 83550; 84436; 84443; 84479; 86376

== ENCOUNTER 2024-03-05 12:35 | Emergency (ER) | payer BC, SELFPAY ==
[2024-03-05 13:00] VITALS: BP 105/63; PULSE 81; RESP 18; TEMP 36.9; O2SAT 97; BMI 28.3
--- NOTE | 2024-03-05 13:15 | EXP.UTC ---
Discharge Plan Disposition Patient Disposition: Home, Self-Care Condition: Good Prescriptions Prescriptions: New penicillin V potassium 500 mg tablet 500 mg PO BID Qty: 20 0RF No Action venlafaxine 75 mg tablet 75 mg PO DAILY meloxicam 15 mg tablet 15 mg PO DAILY propranolol 60 mg capsule,extended release 24 hr 60 mg PO DAILY modafinil 200 mg tablet 200 mg PO DAILY hydroxyzine HCl 25 mg tablet 25 mg PO DAILY alprazolam 2 mg tablet 2 mg PO DAILY cholecalciferol (vitamin D3) [Vitamin D3] 50 mcg (2,000 unit) capsule 50 mcg PO DAILY Vraylar 3 mg capsule 3 mg PO DAILY Veozah 45 mg tablet 45 mg PO DAILY Referrals Follow up/Referrals: Karmen Aguilera APRN [Primary Care Provider] - See instructions Activity Restrictions/Add. Instructions Additional Instructions/Restrictions: *Monitor Temp, Over the counter Motrin or Tylenol as directed/as needed Tylenol every 4 hours and Motrin every 6 hours (as long as your family doctor has told you that you can take it) for fever or pain. and straight to ER if unable to lower temp less than 101.0 after medication given *Warm salt water gargles may help to soothe the throat *Throat Lozenges? *Warm fluids like tea with honey may help to soothe the throat? *Sleep elevated *Humidifier/Vaporizer *If you did not take Penicillin shot or was unable to, start taking antibiotic immediately and make sure that you take it for the FULL length of time although you should start to feel better in 24-48 hours *change toothbrush and toothpaste 24-48 hours after starting to take antibiotics so you do not reinfect yourself Monitor Temp. Tylenol and/or Ibuprofen as needed. ER if fever is no less than 101 despite alternating Tylenol and Ibuprofen * Encourage fluids, water, Gatorade, powerade, pedialyte if infant/toddler/or child *Cold fluids, popsicles and ice cream may feel good on his throat Follow up IMMEDIATELY for new or worsening symptoms or no Noticeable improvement over the next 48-72 hours. 911 for difficulty breathing or swallowing Clinical Impressions Clinical Impression: Strep throat Instructions Patient Instructions: DI for Strep Throat, Strep Throat Print Language Print Language: Lao Discharge ED Provider: Jennifer Guevara [facility] HPI General Stated complaint: sore throat, lightheaded Mode of Arrival: Ambulatory Source of Information: Patient Limitations: No Limitations Time Seen by Provider: 03/05/24 13:24 Description of Symptoms (Recalled from Triage Doc. by RN): PATIENT C/O SORE THROAT THAT STARTED WEDNESDAY AND EAR PAIN AND DIZZINESS THAT STARTED TODAY HEENT Symptoms (Recalled from RN notes): Yes Resp Symptoms (Recalled from RN notes): No Skin Symptoms (Recalled from RN notes): No MS Symptoms (Recalled from RN notes): No Functional Status (Recalled from RN notes): WNL History of Present Illness Provider Complaint: Patient states that she has been having sore throat since Wednesday and feeling pain and pressure in her ears, headache and feeling unwell so today she came in to get checked Related Data Home Medications ?Medication ?Instructions ?Recorded ?Confirmed alprazolam 2 mg tablet 2 mg PO DAILY 03/05/24 03/05/24 cariprazine 3 mg capsule (Vraylar) 3 mg PO DAILY 03/05/24 03/05/24 cholecalciferol (vitamin D3) 50 50 mcg PO DAILY 03/05/24 03/05/24 mcg (2,000 unit) capsule (Vitamin D3) fezolinetant 45 mg tablet (Veozah) 45 mg PO DAILY 03/05/24 03/05/24 hydroxyzine HCl 25 mg tablet 25 mg PO DAILY 03/05/24 03/05/24 meloxicam 15 mg tablet 15 mg PO DAILY 03/05/24 03/05/24 modafinil 200 mg tablet 200 mg PO DAILY 03/05/24 03/05/24 propranolol 60 mg capsule,24 60 mg PO DAILY 03/05/24 03/05/24 hr,extended release venlafaxine 75 mg tablet 75 mg PO DAILY 03/05/24 03/05/24 Previous Rx's ?Medication ?Instructions ?Recorded penicillin V potassium 500 mg 500 mg PO BID #20 tabs 03/05/24 tablet Allergies Allergy/AdvReac Type Severity Reaction Status Date / Time olanzapine Allergy Unknown Verified 03/05/24 13:15 allergy reaction quetiapine [From Seroquel] Allergy Anxiety Verified 03/05/24 13:15 temazepam [From Restoril] AdvReac Severe suicidal Verified 01/17/24 14:18 Worker's Comp Is this a Worker's Comp case?: No [facility] Disclaimer: The information contained in this section may have been updated after the patient was seen, as this information can be updated by other users. 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 Osteoarthritis Gastroesophageal reflux disease Depression Insomnia Vitamin D deficiency (~11/24/17) Psoriasis Anxiety Surgical History Hx of removal of cyst History of tubal ligation History of partial hysterectomy Hx of shoulder surgery Family History Other Colon cancer Family history of diabetes mellitus type II Family history of myocardial infarction Social History (Updated 12/14/23 @ 10:55 by Alessandra Aponte APRN) Smoking Status: Current every day smoker tobacco type: cigarettes packs per day: 1 years smoked: 30 second hand exposure: No alcohol intake: current alcohol intake frequency: holidays/special occasions only counseling given: No substance use type: denies use counseling given: No current occupational status: employed Travel in the last 8 weeks: None adopted: No caregiver/support person: No foster care: No household members: significant other housing: house lives independently: Yes marital status: single number of children: 5 number of grandchildren: 18 education level: other details: she got her GED; 2 years of college current occupational exposures/hazards: No caffeine: No special hakeem needs: No agree to transfusion: No working smoke detector in home: Yes fire extinguisher in home: Yes carbon monox detector in home: Yes firearms in home: Yes firearms unloaded and locked: Yes do you feel safe at home: Yes victim of physical abuse: No victim of emotional abuse: No victim of sexual abuse: No would you like helpful sources: No ROS Obtained: Yes All systems reviewed & no additional complaints except as documented and Yes Systems reviewed as appropriate & no additional complaints except as documented Constitutional Constitutional: Reports system reviewed and no additional complaints, except as documented, Reports as per HPI, Reports body ache, Reports fever(s) and Reports headache(s) ENT Ears, Nose, Mouth, and Throat: Reports system reviewed and no additional complaints, except as documented, Reports as per HPI, Reports otalgia, Reports headache(s) and Reports sore throat Cardiovascular Cardiovascular: Reports system reviewed and no additional complaints, except as documented and Reports as per HPI Respiratory Respiratory: Reports system reviewed and no additional complaints, except as documented and Reports as per HPI Gastrointestinal Gastrointestingal: Reports system reviewed and no additional complaints, except as documented and as per HPI Neurologic Neurologic: Reports headache(s) Physical Exam General General appearance: alert and in no apparent distress ENT ENT exam: Present mucous membranes moist Expanded ENT Exam TM/Canal exam: Bilateral TM: bulging Throat exam: Present tonsillar erythema and tonsillar exudate Respiratory Respiratory exam: Present normal lung sounds bilaterally; Absent respiratory distress or wheezes Cardiovascular Cardiovascular exam: Present regular rate, normal rhythm and normal heart sounds Neurological Exam Neurological exam: Present alert, oriented X3 and normal gait Medical Decision Making Fito Inquiry Pt receiving controlled substance: No Fito was queried for this patient: No Vital Signs: 03/05/24 13:00 Temperature 98.4 F Temperature Source Oral Pulse Rate [Left Brachial] 81 Respiratory Rate 18 Blood Pressure [Left Arm] 105/63 L Blood Pressure Mean [Left Arm] 77 Blood Pressure Source [Left Arm] Automatic Cuff Blood Pressure Position [Left Arm] Sitting 02 Sat by Pulse Oximetry 97 Oxygen Delivery Method Room Air Lab Data Lab results reviewed: Yes I reviewed the patient's lab results.
[2024-03-05 13:32] LABS: UTC Strep Screen (Rapid) Positive (Negative)
[2024-03-05 13:35] VITALS: BP 105/63; PULSE 81; RESP 18; TEMP 36.9; O2SAT 97
== END 2024-03-05 13:38 | disposition home or self-care (01) ==
PROVIDERS: Emergency Provider Nurse Practitioner; PCP Nurse Practitioner
DX: J02.0 Streptococcal pharyngitis (principal); H92.03 Otalgia, bilateral; R51.9 Headache, unspecified; R07.0 Pain in throat
CPT/HCPCS: 87880; 99212; 99214; G0463

== ENCOUNTER 2024-08-03 11:20 | Outpatient (CLI) | payer BC, MEDICAID, SELFPAY ==
[2024-08-03 12:02] LABS: Blood Urea Nitrogen 20 mg/dl (7-17); Estimated Glomerular Filt Rate 58 ml/min (>60); GFR (African American) 70 ML/MIN (>60)
== END 2024-08-03 23:59 | disposition home or self-care (01) ==
LOC: LAB 11:23
PROVIDERS: PCP Nurse Practitioner; Visit Provider Nurse Practitioner
DX: Z01.812 Encounter for preprocedural laboratory examination (principal)
CPT/HCPCS: 36415; 82565; 84520

== ENCOUNTER 2024-08-04 15:00 | Outpatient (CLI) | payer BC, MEDICAID, SELFPAY ==
--- NOTE | 2024-08-04 15:04 | MR_ITS ---
FINAL REPORT TECHNIQUE: Multiplanar MR, without and with gadolinium enhancement CLINICAL HISTORY: ESSENTIAL TREMOR IN THE LAST FEW YEARS WORST WHEN STRESSED FINDINGS: Diffusion sequences show no signal abnormality to indicate acute infarct. No mass, hemorrhage or edema is seen. Ventricles are normal. Major vascular flow voids are intact. Following contrast administration, no mass or abnormal enhancement is seen. There is a small amount of fluid in the right frontal sinus. IMPRESSION: No acute intracranial abnormality. Small amount of fluid in the right frontal sinus. Reviewed, Interpreted and Dictated by Laron Red MD Transcribed by Shanta Raphael Authenticated and . [facility]
[2024-08-04] MEDS: SODIUM CHLORIDE 0.9% 10ML SYR (RAD ONLY) 10 ML IV (16:41)
[2024-08-04] MEDS: GADOTERIDOL INJ 20ML SYRINGE 15 ML IV (16:42)
== END 2024-08-04 23:59 | disposition home or self-care (01) ==
LOC: RAD 15:01
PROVIDERS: PCP Nurse Practitioner; Visit Provider Nurse Practitioner
DX: G25.0 Essential tremor (principal)
CPT/HCPCS: 70553; A9576

== ENCOUNTER 2024-09-12 14:57 | Outpatient (CLI) | payer BC, MEDICAID, SELFPAY ==
--- NOTE | 2024-09-12 15:00 | MR_ITS ---
FINAL REPORT TECHNIQUE: Multiplanar and multisequence imaging of the shoulder was obtained without contrast. CLINICAL HISTORY: LT SHOULDER PAIN X COUPLE MONTHS HX OF 2 SURGERIES TO REPAIR A TORN MUSCLE AND CLEAN OUT PER PATIENT COMPARISON: 06/06/2021 FINDINGS: Bones/Joint: Bone marrow signal intensity is normal. There is no fracture, edema, or pathologic marrow replacement. The AC joint is intact. There is mild edema across the acromioclavicular joint, likely degenerative. Fluid is seen within the AC joint and the inferior AC ligament is discontinuous, likely related to prior surgery. There is also degenerative disease of the glenohumeral joint. Degenerative disease of the glenohumeral joint has progressed since the prior exam. Rotator Cuff: There is no full thickness supraspinatus or infraspinatus tear. The subscapularis tendon is intact. There is no fatty atrophy of the rotator cuff musculature. Labrum: No labral tear is identified. The biceps labral complex is not seen. No fluid-filled labral defect seen. The inferior glenohumeral ligament is intact. Proximal biceps tendon is not seen within the bicipital groove, unchanged from prior. Other: There is no significant joint effusion. Remaining soft tissues are within normal limits. IMPRESSION: No full-thickness rotator cuff tendon tear or labral tear. Biceps labral complex and proximal biceps tendon not identified, unchanged and possibly postsurgical. Degenerative joint disease. No new abnormality identified. Reviewed, Interpreted and Dictated by Latha Ambrosio MD Transcribed by Ni Lopez Authenticated and [facility]
== END 2024-09-12 23:59 | disposition home or self-care (01) ==
LOC: RAD 14:58
PROVIDERS: PCP Nurse Practitioner; Visit Provider Physician Assistant
DX: M75.42 Impingement syndrome of left shoulder (principal); M25.512 Pain in left shoulder
CPT/HCPCS: 73221

== ENCOUNTER 2024-09-25 14:26 | Outpatient (CLI) | payer BC, MEDICAID, SELFPAY ==
--- NOTE | 2024-09-25 14:30 | CT_ITS ---
FINAL REPORT CLINICAL HISTORY: Sinusitis COMPARISON: None FINDINGS: There is mild mucoperiosteal thickening of the right cell of the frontal sinus consistent with a chronic sinusitis. The ostiomeatal units are patent. There are no air-fluid levels. There is no fracture. There are no air-fluid levels. IMPRESSION: Chronic sinusitis. Reviewed, Interpreted and Dictated by Tonio Gonzalez MD Transcribed by Ni Lopez Authenticated and [facility]
--- OUTSIDE RECORDS SUMMARY | 2024-09-28 20:39 | XMS_ITS | Continuity of Care Document ---
Author Organization [facility] Address [address] [place] [address] Assessment Encounter Date Assessment Date Assessment LastModified by Organization Details LastModified Time 08/11/2024 08/11/2024 Follow up in February [email or web address] Not available 08/11/2024 12:24:58 Plan of Treatment Reminders Order Date Submit Date Provider Last Modified By Organization Details Last Modified Time Details Appointments NEW PATIENT O 2024 01:15P M MANNY HUGHES DO Not available Not available Not available [facility] 2024 01:30P M ASIF BEASLEY FACILITY MANAGER Not available Not available Not available Lab None recorded. Referral None recorded. Procedures None recorded. Surgeries None recorded. Imaging None recorded. Medication Orders None recorded. Patient TargetsNo targets recorded. Patient Instructions Encounter Date Encounter Id Patient Instructions Last Modified By Organization Details Last Modified Time 08/11/2024 [id number] Education: We discussed the potential diagnostic options, options for further evaluation and treatments, and the risks and benefits of each. [email or web address] Not available 08/11/2024 12:14:53 Reason for Referral None Reported. Procedures Surgical History Date Name Laterality Status Provider Name and Address Organization Details Recorded Time procedure on shoulder completed JARROD BOSS MD [address] [place] [address], [phone], [facility] 03/21/2024 14:24:39 partial hysterectomy completed MD Shweta [address] [place], [address], [facility] 03/21/2024 14:22:37 procedure on wrist completed JARROD BOSS MD [address] [place] [address], [phone], [facility] 03/21/2024 14:22:50 excision of lesion of joint completed JARROD BOSS MD [address] [place], [phone], [facility] 03/21/2024 14:24:01 Imaging Results None recorded. Procedure Notes None recorded. Medical Equipment None Reported. Allergies Allergen ID Allergen Name Allergen Category Reaction Reaction Severity Criticality Documentation Date Start Date Code Code System Note Provider Name and Address Organization Details Recorded Time 401881 olanzapin e medicatio n swelling Not available Not available 03/21/2024 25727 [facility] 13:51:59 Medications Name Sig Start Date Stop Date Status Note LastModified by Organization Details LastModified Time betamethas one, augmented 0.05 % topical cream APPLY A THIN LAYER TO THE AFFECTED AREA(S) ON TRUNK AND EXTREMIT IES BY TOPICAL ROUTE 2 TIMES PER DAY FOR 2 WEEKS THEN DECREASE TO 3 TIMES PER WEEK NEEDED FOR SEVERE ITCHING. 2023 active Not Available Not Available Not Avai lable prednisone 5 mg tablet 20 mg (4 tabs) daily x 5 days, 15 mg daily (3 tabs) x 5 days, 10 mg (2 tabs) x 5 days, 5 mg (1 tab) x 5 days then stop 05/16 completed Not Available Not Available Not Available Kenalog 40 mg/mL suspension for injection 40 MG 08/01 completed Not Available Not Available Not Available methotrexa te sodium 2.5 mg tablet Take 6 tablets every week by oral route. 05/16 completed Not Available Not Available Not Available folic acid 1 mg tablet Take 1 tablet every day by oral route. 05/16 completed Not Available Not Available Not Available clobetasol 0.05 % scalp solution APPLY TO THE AFFECTED SCALP AREA BY TOPICAL ROUTE 2 TIMES PER DAY IN THE MORNING AND EVENING FOR 2 WEEKS NEEDED FOR ITCHING 2023 active Not Available Not Available Not Avai lable magnesium active Not Available Not Bisi ilable Not Available loratadine active Not Available Not Av ailable Not Available atorvastat in active Not Available Not Available Not Available meloxicam active Not Available Not Bisi ilable Not Available omeprazole active Not Available Not Av ailable Not Available hydroxyzin e HCl active Not Available Not Available Not Available propranolo l active Not Available Not Available Not Available venlafaxin e active no longer taking Not Available Not Available Not Available alprazolam active Not Available Not Av ailable Not Available sulfasalaz ine active Not Available Not Available Not Available Vitamin D3 active Not Available Not Av ailable Not Available modafinil active Not Available Not Bisi ilable Not Available bupropion HBr active Not Available Not Available Not Available Estroven active Not Available Not Avai lable Not Available Vraylar 3 mg capsule Take 1 capsule every day by oral route. active Not Available Not Available No t Available Vraylar 08/01 completed Not Available Not Available Not Available Centrum Women active Not Available Not Available Not Available Glucosamin e Chondroiti n active Not Available Not Available Not Available Skyrizi 150 mg/mL subcutaneo us pen injector active Not Available Not Available Not Available Veozah active Not Available Not Availa ble Not Available Vitals None Recorded Social History Question Answer Notes LastModified by Organizat ion Details LastModified Time Tobacco Smoking Status Current Every Day Smoker LEANN [facility] 03/21/2024 13:56:45 What Was The Date Of Your Most Recent Tobacco Screening? 04/19/2024 [email or web address] Information not available 04/19/2024 How Much Tobacco Do You Smoke? 1 PPD hrick Information not available 03/21/2024 Sex: Female Functional Status None recorded. Mental Status None recorded. Family History Relationship Description Onset Age of this Age Resolved Age Notes LastModified by Organization Details LastModified Time Unspecified Relation Psoriasis variou s family member s with psoria sis; childr en, aunts, uncles , grandp arents Not available 03/21/2024 14:25:02 Unspecified Relation Malignant neoplastic disease Colon cancer , lung cancer Not available 03/21/2024 14:25:23 Medical History No medical history recorded. Gynecological HistoryNo gynecological history recorded. Obstetrics History GPAL:G 0 P 0 0 0 0 Past Encounters Encounter ID Performer Location Encounter Start Date Encounter Closed Date Diagnosis/Indication Diagnosis SNOMED-CT Code Diagnosis ICD10 Code Diagnosis Note [id number] MANNY BEASLEY, FACILITY MANAGER [facility] [address] [place] [address] 08/11/2024 11:58:19 08/11/2024 12:50:47 Psoriasis 9553845 L40.9 chronicsin ce early child hoodEssent ially clear todayDoes still have some itching on trunk but this is only two weeks around the time of the Skyrizi injection. Tolerating injections well. No issues reported.H eadaches stable per patient - had prior to starting SkyriziTre mors and muscle weakness in legs - patient having work up with Neuro; recent MRI negative- just started Wellbutrin ; thinks this may be side effect from this med.Initia l BSA > 10%StableP atient has tried and failed OTC topicals, clobetasol solution, betamethas one cream, oral steroids, and Methotrexa te.Has + joint pain hips, knees, ankles, feet and hands - worse in morning and after any periods of inactivity ; currently treating with sulfasalaz ine from Rheumatolo gy- has noted slight improvemen t in hip and lower extremity joint pain since starting SkyriziMin imal improvemen t in skin rash with topical steroids and IM kenalog since last visit.Pablo mmend:Cont inue current skin care routine of Dove body wash and start CeraVe SA or Amlactin for chronic dry skin areas.May use augmented betamethas one cream BID for up to 2 weeks as needed for itching on trunk- Side effects of prolonged topical steroid use were reviewed with patient Continue Skyrizi 150mg/mL Sub Q injections every 12 weeks - next injection is Due September 25.PA approved through 11/07/2024. Will check labs in October/November - CBC, CMP - patient will have drawn at [facility] social distancing during flu and covid season as patient defers any vaccines. Follow up in Feb for recheck Health Concerns Section Related Observation LastModified by Organization Napoleon quach LastModified Time None Recorded Concern Status LastModified by Organization Details LastModified Time None Recorded Payers Encounter Date Sequence Insurance Name Policy Number Policy Ortez Covered Member ID Ortez Member ID Guarantor Name 08/11/2024 1 [employer] [id number] Robles Tay Osito [id number] Hortencia Mcneill 08/11/2024 2 [place] [id number] Hortencia Mcneill [id number] Hortencia Mcneill Notes Date Note Type Note Provider Name and Address Organization Details Recorded Time 08/11/2024 text/html Established patient Patient presents to the clinic today for AMALIA of psoriasis - treating with Bushra Patient states she is completely clear but does still have some itching on her flanks - will last about 2 weeks after injection then goes away Having joint pain - slightly better but not much Patient is concerned about the side effects of the medication. She would like to discuss this before proceeding with the injection. MANNY BEASLEY, FACILITY MANAGER [address] [place], [address], [facility] 08/11/2024 14:24:07 OBGyn Episode No OBEpisode recorded.
--- OUTSIDE RECORDS SUMMARY | 2024-09-28 20:39 | XMS_ITS | Data Portability ---
Author Organization [facility] [place] Andres cain, [facility] Address [address] [place] [address] Assessment Encounter Date Assessment Date Assessment LastModified by Organization Details LastModified Time 03/21/2024 03/21/2024 Hx psoriatic arthritis and psoriasis. She was diagnosed by her PCP. Has had issues with inflammatory arthritis for at least the past 10 years affecting her bilateral hands, wrists, elbows, shoulders, knees, ankles, back, hips. Associated with prolonged morning stiffness particularly in hands, wrists, elbows, shoulders, back, hips.. She has more symptoms of osteoarthritis in her knees and ankles. Longstanding history of psoriasis since the age of 11, affecting her legs, buttocks, elbows, scalp, ears, under breasts. She has been taking sulfasalazine 1000 mg twice daily for the last several years from her primary care. She states that it was helpful for both psoriasis and psoriatic arthritis for a long time, but in the last several months has seemed to like lose efficacy. Will plan to update labs, x-rays bilateral hands, feet, SI joints. Advised her to continue sulfasalazine for now. Will also give prednisone taper and assess response. Notable history for depression. Will avoid Otezla. In terms of DMARD options, consider leflunomide versus methotrexate versus biologics like TNF inhibitors. Return to clinic in 3 weeks to assess prednisone response and discuss other therapy options. Not available 03/21/2024 16:06:30 04/19/2024 04/19/2024 Hx psoriatic arthritis and psoriasis. She was diagnosed by her PCP. Has had issues with inflammatory arthritis for at least the past 10 years affecting her bilateral hands, wrists, elbows, shoulders, knees, ankles, back, hips. Associated with prolonged morning stiffness particularly in hands, wrists, elbows, shoulders, back, hips.. She has more symptoms of osteoarthritis in her knees and ankles. Longstanding history of psoriasis since the age of 11, affecting her legs, buttocks, elbows, scalp, ears, under breasts. She has been taking sulfasalazine 1000 mg twice daily for the last several years from her primary care. She states that it was helpful for both psoriasis and psoriatic arthritis for a long time, but in the last several months has seemed to like lose efficacy. X-rays hands, feet, SI joints without erosions; degenerative changes noted. Notable history for depression. Will avoid Otezla. Symptoms were not steroid responsive. In addition to Sulfasalazine, will plan to add Methotrexate today. Discussed the risks and benefits for methotrexate therapy including, but not limited to, liver toxicity, cytopenias. Additionally, patient informed of the need to abstain from all alcohol while on methotrexate. Also discussed daily folic acid supplementation. ACR handout on methotrexate was given to patient to review and encouraged to ask questions. If Methotrexate is not helpful, consider Leflunomide next. If combination of DMARD's is not helpful, then will look into biologics. Labs will be due in 1 month after starting Methotrexate. Instructed pt to go for labs at the end of April. RTC 2 months Not available 04/19/2024 18:28:05 05/30/2024 05/30/2024 Follow up in 3 months. 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 Not available Not available Lab CBC w/ auto diff 2023 024 [email or web address] [facility], [address] [place] [address], [place], [address], 04/26/2024 08:07:48 creatinin e, serum or plasma [address] [facility], [address] [place] [address], [id number], 04/26/2024 08:07:48 AST/SGOT (aspartat e aminotran sferase), serum or plasma [address] [facility], [address] [place] [address], [id number], 04/26/2024 08:07:48 ALT (alanine aminotran sferase), serum or plasma [address], [address] [place] [address], [id number], 04/26/2024 08:07:48 HLA-B27, qual, flow cytometry 2023 [facility], [address] [place] [address], [id number], 03/22/2024 22:04:48 CBC w/ auto diff 2023 [facility] [place] [address] [place] [address], [id number], 03/21/2024 15:42:00 CMP, serum or plasma 2023 [facility] [place] [address] [place] [address], [id number], 03/21/2024 16:11:04 ESR (erythroc yte sedimenta tion rate), blood 2023 [facility] [place] [address] [place] [address], [id number], 03/21/2024 17:28:46 C reactive protein, QN, serum or plasma 2023 024 [facility] [place] [address] [place] [address], [id number], 03/21/2024 16:11:01 Mycobacte rium tuberculo sis stimulate d gamma interfero n, qual, blood 2023 [facility], [address] [place] [address], [id number], 03/24/2024 08:03:11 hepatitis (A+B+C) panel, serum 2023 [facility], [address] [place] [address], [id number], 03/21/2024 16:04:10 Referral None recorded. Procedures None recorded. Surgeries None recorded. Imaging XR, hand, 3 or more view 2023 [facility], [address] [place] [address], [id number], 03/22/2024 06:50:03 XR, foot, 3 or more view - Hx psoriatic arthritis 2023 [facility], [address] [place] [address], [id number], 03/22/2024 06:57:33 XR, sacroilia c joint(s), 3 or more view - Eval for inflammat ory arthritis 2023 [facility], [address] [place] [address], [id number], 03/22/2024 06:57:14 Medication Orders Skyrizi 150 mg/mL subcutane ous pen injector 2023 [email or web address] 9 [facility], [address] [place] [address], [id number], 05/31/2024 08:03:54 Kenalog 40 mg/mL suspensio n for injection 2023 [email or web address] 9 [facility], [address] [place] [address] [place], [id number], 08/01/2024 12:31:08 betametha sone, augmented 0.05 % topical cream 2023 [facility], [address] [place] [address] [place], [id number], 05/16/2024 12:55:35 clobetaso l 0.05 % scalp solution 2023 [facility], [address] [place] [address] [place], [id number], 05/16/2024 12:55:37 Skyrizi 150 mg/mL subcutane ous pen injector 2023 [email or web address] 9 [facility], [facility] ([facility]), [address] [place] [address], [place], [id number], 05/16/2024 13:20:48 methotrex ate sodium 2.5 mg tablet 2023 [facility], [address] [place] [address] [place], [id number], 05/16/2024 09:00:17 folic acid 1 mg tablet 2023 [facility], [address] [place] [address] [place], [id number], 05/16/2024 08:59:24 prednison e 5 mg tablet 2023 [facility], [address] [place] [address] [place], [id number], 05/16/2024 08:58:22 Patient TargetsNo targets recorded. Patient Instructions Encounter Date Encounter Id Patient Instructions Last Modified By Organization Details Last Modified Time 05/30/2024 [id number] Education: We discussed the potential diagnostic options, options for further evaluation and treatments, and the risks and benefits of each. [email or web address] Not available 05/30/2024 13:39:20 08/11/2024 [id number] Education: We discussed the potential diagnostic options, options for further evaluation and treatments, and the risks and benefits of each. [email or web address] Not available 08/11/2024 12:14:53 Reason for Referral None Reported. Results Created Date Observation Date Name Description Value Unit Range Abnormal Flag Note LastModifiedBy Organization Detail LastModifiedTime 03/21/2003/21/2024 COMPL ETE BLOOD COUNT white blood cells 10.1 10*3/ uL 3.8-10 .8 normal Not Available [facility] [address] [place] [address], [id number], 03/21/2024 15:42:00 03/21/20 24 03/21/2024 COMPL ETE BLOOD COUNT red blood cells 4.19 10*6/ uL 3.80-5 .20 normal Not Available [facility] [address] [place] [address], [id number], 03/21/2024 15:42:00 03/21/20 24 03/21/2024 COMPL ETE BLOOD COUNT hemoglobin 12.5 g/dL 12.0-1 6.0 normal Not Available [facility] [address] [place] [address], [id number], 03/21/2024 15:42:00 03/21/20 24 03/21/2024 COMPL ETE BLOOD COUNT hematocrit 37.6 % 35.0-4 7.0 normal Not Available [facility] [address] [place] [address], [address], 03/21/2024 15:42:00 03/21/20 24 03/21/2024 COMPL ETE BLOOD COUNT MCV 90 fL 80-100 normal Not Available [facility] [address] [place] [address], [id number], 03/21/2024 15:42:00 03/21/20 24 03/21/2024 COMPL ETE BLOOD COUNT MCH 30 pg 26-35 normal Not Available [facility] [address] [place] [address], [id number], 03/21/2024 15:42:00 03/21/20 24 03/21/2024 COMPL ETE BLOOD COUNT MCHC 33 g/dL 32-36 normal Not Available [facility] [address] [place] [address], [address], 03/21/2024 15:42:00 03/21/20 24 03/21/2024 COMPL ETE BLOOD COUNT RDW 12.7 % 11.0-1 5.0 normal Not Available [facility] [address] [place] [address], [address], 03/21/2024 15:42:00 03/21/20 24 03/21/2024 COMPL ETE BLOOD COUNT MPV 8.5 fL 6.2-10 .5 normal Not Available [facility] [address] [place] [address], [address], 03/21/2024 15:42:00 03/21/20 24 03/21/2024 COMPL ETE BLOOD COUNT platelet count 272 10*3/ uL 150-40 0 normal Not Available [facility] [address] [place] [address], [address], 03/21/2024 15:42:00 03/21/20 24 03/21/2024 COMPL ETE BLOOD COUNT neutrophil,a bsolute 6.7 10*3/ uL 1.6-8. 4 normal Not Available [facility] [address] [place] [address], [address], 03/21/2024 15:42:00 03/21/20 24 03/21/2024 COMPL ETE BLOOD COUNT lymphocyte,a bsolute 2.3 10*3/ uL 0.4-5. 1 normal Not Available [facility] [address] [place] [address], [id number], 03/21/2024 15:42:00 03/21/20 24 03/21/2024 COMPL ETE BLOOD COUNT monocyte,abs olute 0.7 10*3/ uL 0.0-1. 2 normal Not Available [facility] [address] [place] [address], [address], 03/21/2024 15:42:00 03/21/20 24 03/21/2024 COMPL ETE BLOOD COUNT eosinophil,a bsolute 0.3 10*3/ uL 0.0-0. 8 normal Not Available [facility] [address] [place] [address], [address], 03/21/2024 15:42:00 03/21/20 24 03/21/2024 COMPL ETE BLOOD COUNT basophil,abs olute 0.1 10*3/ uL 0.0-0. 3 normal Not Available [facility] [address] [place] [address], [address], 03/21/2024 15:42:00 03/21/20 24 03/21/2024 COMPL ETE BLOOD COUNT % neutrophils 66.3 % 42.0-7 8.0 normal Not Available [facility] [address] [place] [address], [address], 03/21/2024 15:42:00 03/21/20 24 03/21/2024 COMPL ETE BLOOD COUNT % lymphocytes 22.9 % 11.0-4 7.0 normal Not Available [facility] [address] [place] [address], [address], 03/21/2024 15:42:00 03/21/20 24 03/21/2024 COMPL ETE BLOOD COUNT % monocytes 7.1 % 0.0-11 .0 normal Not Available [facility] [address] [place] [address], [address], 03/21/2024 15:42:00 03/21/20 24 03/21/2024 COMPL ETE BLOOD COUNT % eosinophils 2.8 % 0.0-7. 0 normal Not Available [facility] [address] [place] [address], [address], 03/21/2024 15:42:00 03/21/20 24 03/21/2024 COMPL ETE BLOOD COUNT % basophils 0.9 % 0.0-3. 0 normal Not Available [facility] [address] [place] [address], [address], 03/21/2024 15:42:00 03/21/20 24 03/21/2024 COMPL ETE BLOOD COUNT nucleated red cells 0.0 % 0.0-0. 9 normal Not Available [facility] [address] [place] [address], [address], 03/21/2024 15:42:00 03/21/20 24 03/21/2024 COMPL ETE BLOOD COUNT nucleated RBCs, absolute 0.00 10*3/ uL not estab. normal Not Available [facility] [address] [place] [address], [address], 03/21/2024 15:42:00 03/21/20 24 03/21/2024 HEPAT ITIS PANEL hepatitis A Ab, IgM NONREA CTIVE nonrea ctive normal Not Available [facility] [address] [place] [address], [address], 03/21/2024 16:04:10 03/21/20 24 03/21/2024 HEPAT ITIS PANEL hepatitis B surface Ag NONREA CTIVE nonrea ctive normal Not Available [facility] [address] [place] [address], [address], 03/21/2024 16:04:10 03/21/20 24 03/21/2024 HEPAT ITIS PANEL hepatitis B core Ab,IgM NONREA CTIVE nonrea ctive normal Not Available [facility] [address] [place] [address], [address], 03/21/2024 16:04:10 03/21/20 24 03/21/2024 HEPAT ITIS PANEL hcab, reflex viral RNA qt NONREA CTIVE nonrea ctive normal Antib odies to HCV were not detec tanmay; does not exclu de the possi bilit y of expos ure to HCV. Not Available [facility] [address] [place] [address], [address], 03/21/2024 16:04:10 03/21/20 24 03/21/2024 C REACT ANNALISE PROTE IN C reactive protein 0.69 mg/dL 0.00-0 .49 high Not Available [facility] [address] [place] [address], [address], 03/21/2024 16:11:01 03/21/20 24 03/21/2024 COMP. METAB OLIC PANEL glucose 114 mg/dL 74-100 high Not Available [facility] [address] [place] [address], [address], 03/21/2024 16:11:04 03/21/20 24 03/21/2024 COMP. METAB OLIC PANEL blood urea nitrogen 16 mg/dL 6-20 normal Not Available [facility] [address] [place] [address], [address], 03/21/2024 16:11:04 03/21/20 24 03/21/2024 COMP. METAB OLIC PANEL creatinine 1.00 mg/dL 0.50-0 .95 high Not Available [facility] [address] [place] [address], [address], 03/21/2024 16:11:04 03/21/20 24 03/21/2024 COMP. METAB OLIC PANEL BUN/creatini ne ratio 16 (calc ) 10-20 normal Not Available [facility] [address] [place] [address], [address], 03/21/2024 16:11:04 10/01/03/21/2024 COMP. METAB OLIC PANEL sodium 141 mmol/ L 136-14 5 normal Not Available [facility] [address] [place] [address], [address], 03/21/2024 16:11:04 03/21/20 24 03/21/2024 COMP. METAB OLIC PANEL potassium 4.0 mmol/ L 3.4-5. 0 normal Not Available [facility] [address] [place] [address], [address], 03/21/2024 16:11:04 03/21/20 24 03/21/2024 COMP. METAB OLIC PANEL chloride 102 mmol/ L 98-107 normal Not Available [facility] [address] [place] [address], [address], 03/21/2024 16:11:04 03/21/20 24 03/21/2024 COMP. METAB OLIC PANEL carbon dioxide 25 mmol/ L 22-31 normal Not Available [facility] [address] [place] [address], [address], 03/21/2024 16:11:04 03/21/20 24 03/21/2024 COMP. METAB OLIC PANEL anion gap 14 (calc ) 7-25 normal Not Available [facility] [address] [place] [address], [address], 03/21/2024 16:11:04 03/21/20 24 03/21/2024 COMP. METAB OLIC PANEL calcium 9.7 mg/dL 8.6-10 .2 normal Not Available [facility] [address] [place] [address], [address], 03/21/2024 16:11:04 03/21/20 24 03/21/2024 COMP. METAB OLIC PANEL total protein 7.5 g/dL 6.4-8. 3 normal Not Available [facility] [address] [place] [address], [address], 03/21/2024 16:11:04 03/21/20 24 03/21/2024 COMP. METAB OLIC PANEL albumin 4.4 g/dL 3.5-5. 2 normal Not Available [facility] [address] [place] [address], [address], 03/21/2024 16:11:04 03/21/20 24 03/21/2024 COMP. METAB OLIC PANEL globulin 3.1 1.5-4. 5 normal Not Available [facility] [address] [place] [address], [address], 03/21/2024 16:11:04 03/21/20 24 03/21/2024 COMP. METAB OLIC PANEL albumin/glob ulin ratio 1.4 (calc ) 1.1-2. 5 normal Not Available [facility] [address] [place] [address], [address], 03/21/2024 16:11:04 03/21/20 24 03/21/2024 COMP. METAB OLIC PANEL bilirubin, total <0.2 mg/dL 0.1-1. 2 normal Not Available [facility] [address] [place] [address], [address], 03/21/2024 16:11:04 03/21/20 24 03/21/2024 COMP. METAB OLIC PANEL alkaline phosphatase 119 U/L 30-121 normal Not Available [facility] [address] [place] [address], [address], 03/21/2024 16:11:04 03/21/20 24 03/21/2024 COMP. METAB OLIC PANEL AST 33 U/L 0-32 high Not Available [facility] [address] [place] [address], [address], 03/21/2024 16:11:04 03/21/20 24 03/21/2024 COMP. METAB OLIC PANEL ALT 35 U/L 0-33 high Not Available [facility] [address] [place] [address], [address], 03/21/2024 16:11:04 03/21/20 24 03/21/2024 COMP. METAB OLIC PANEL GFR 68 >= 60 normal NOT E New calcu latio n for GFR (CKD- EPI 2020) is formu lated witho ut race adjus tment facto rs at the recom menda tion of the Natio nal Kidne y Found ation and Ameri can Socie ty of Nephr ology . This calcu latio n has not been valid ated in pregn ant women . For pedia tric patie nts refer to https ://jessica w.chalo yañezy.o rg/pr ofess ional s/KDO QI/gf r_cal culat orPed Not Available [facility] [address] [place] [address], [address], 03/21/2024 16:11:04 03/21/20 24 03/21/2024 ESR, AUTOM ATED ESR, automated 16 mm 0-29 normal Not Available [facility] [address] [place] [address], [address], 03/21/2024 17:28:46 03/21/20 24 03/22/2024 HLA B27 ANTIG EN hla B27 antigen NEGATI VE negati ve normal Not Available [facility] [address] [place], [address], 03/22/2024 22:04:48 03/21/20 24 03/23/2024 QUANT IFERO N TB GOLD qtb gold NEGATI VE negati ve normal Negat annalise test resul t. M. tuber culos is compl ex infec tion unlik james. Not Available [facility] [address] [place], [address], 03/24/2024 08:03:11 03/21/20 24 03/23/2024 QUANT IFERO N TB GOLD nil 0.02 IU/mL normal Not Available [facility] [address] [place] [address], [address], 03/24/2024 08:03:11 10/01/20 24 03/23/2024 QUANT IFERO N TB GOLD mitogen nil 5.98 IU/mL normal Not Available [facility] [address] [place] [address], [address], 03/24/2024 08:03:11 03/21/20 24 03/23/2024 QUANT IFERO N TB GOLD TB1 nil 0.00 IU/mL normal Not Available [facility] [address] [place] [address], [address], 03/24/2024 08:03:11 03/21/20 24 03/23/2024 QUANT IFERO N TB GOLD TB2 nil <0.00 IU/mL normal The Nil tube value refle cts the backg round inter feron gamma immun e respo nse of the patie nt's blood sampl e. This value has been subtr acted from the patie nt's displ ayed TB and Mitog en resul ts. Lower than expec tanmay resul ts with the Mitog en tube preve nt false -nega tive Quant ifero n readi ngs by detec ting a patie nt with a poten tial immun e suppr essiv e condi tion and/o r subop timal pre-a nalyt ical speci men handl ing. The TB1 Antig en tube is coate d with the M. tuber culos is-sp ecifi c antig ens desig dionte to elici t respo nses from TB antig en prime d CD4+ helpe r T-lym phocy naresh. The TB2 Antig en tube is coate d with the M. tuber culos is-sp ecifi c antig ens desig dionte to elici t respo nses from TB antig en prime d CD4+ helpe r and CD8+ cytot oxic T-lym phocy naresh. For addit ional infor yolanda ovalles e refer to https ://kelli gil on.qu estagnes General Compressions. com/f aq/FA Q204 (This link is being provi ded for infor antionette chavira/ educa krystina l purpo ses only. ) Not Available [facility] [address] [place] [address], [phone], 03/24/2024 08:03:11 03/22/20 24 03/21/2024 XR, hand, 3 or more view [address] [address] [place] Name: MARCIN macias : [birth year] Pat[place]andro t 78 Orderi ng Provid er: JARROD MIN EXAM DATE: 2023 EXAM: XR HUANG HANDS 3VWS HISTOR Y: Bilate ral hand pain COMPAR PERLA: None. FINDIN GS: The bones of the left and right hand are normal in alignm ent. There is mild ulnar minus varian ce in the right wrist. There is no eviden ce of fractu re. There are mild degene rative change s. There is mild margin al spurri ng in the first carpom etacar pal joint and trisca phe joint bilate rally. There is minima l spurri ng in the metaca rpopha langea l joints and interp halang eal joints . IMPRES VARSHA: 1. There are mild degene rative change s in the left and right hand. Interp reted By: Vikki marshall MD Electr onical ly Signed By: Vikki marshall MD on 024 6:44 AM [facility] [address], [address], 03/24/2024 12:29:20 03/22/20 24 03/21/2024 XR, sacro iliac joint (s), 3 or more view [address] [address] [place] Name: MARCIN macias : [birth year] Liliana macias 78 Orderi ng Provid er: JARROD MIN EXAM DATE: 2023 EXAM: XR SACROI LIAC JOINTS MIN 3 VWS HISTOR Y: Pelvic pain. COMPAR PERLA: None. FINDIN GS: The bones of the pelvis are normal in alignm ent. There are mild degene rative change s in the SI joints . There is no fractu re. IMPRES VARSHA: 1. There are mild degene rative change s in the SI joints . Interp reted By: Vikki marshall MD Electr onical ly Signed By: Vikki marshall MD on 6:[address] Radiology [place] [address] [place], [address], 03/24/2024 12:29:20 03/22/20 24 03/21/2024 XR, foot, 3 or more view [address] [address] Patialessandro macias Name: MARCIN macias : [birth year] Patialessandro macias 78 Orderi ng Provid er: JARROD BOSS EXAM DATE: 2023 EXAM: XR HUANG FEET COMPLE TE HISTOR Y: Bilate ral foot pain. COMPAR PERLA: None. FINDIN GS: There are small bunion s at the first metata rsal head in both feet with mild osteoa rthrit ic change s. There is mild enthes opathi c change about the calcan ei. The bones are normal in alignm ent. There is no fractu re. IMPRES VARSHA: 1. There are mild degene rative change s in both feet. Interp reted By: Vikki marshall MD Electr onical ly Signed By: Vikki marshall MD on 6:[address] Radiology [facility] [address] [place], [address], 03/24/2024 12:29:21 Result Notes None recorded. Procedures Surgical History Date Name Laterality Status Provider Name and Address Organization Details Recorded Time procedure on shoulder completed JARROD BOSS MD [address] [place], [address], [facility] 03/21/2024 14:24:39 partial hysterectomy completed JARROD BOSS MD [address] [place], [address], [facility] 03/21/2024 14:22:37 procedure on wrist completed JARROD BOSS MD [address] [place], [address], [facility] 03/21/2024 14:22:50 excision of lesion of joint completed JARROD BOSS MD [address] [place] [address], [address], [facility] 03/21/2024 14:24:01 Imaging Results Imaging Date Name Status LastModified by Organiz ation Details LastModified Time 03/21/2024 XR, hand, 3 or more view completed [address], [address], 03/24/2024 12:29:20 03/21/2024 XR, sacroiliac joint(s), 3 or more view completed [address], [address], 03/24/2024 12:29:20 03/21/2024 XR, foot, 3 or more view completed [address], [address], 03/24/2024 12:29:21 Procedure Notes None recorded. Medical Equipment None Reported. Allergies Allergen ID Allergen Name Allergen Category Reaction Reaction Severity Criticality Documentation Date Start Date Code Code System Note Provider Name and Address Organization Details Recorded Time 947924 olanzapin e medicatio n swelling Not available Not available 03/21/2024 91934 RxNorm Kristy [facility] 13:51:59 Medications Name Sig Start Date Stop [...] Available Not Availa ble Not Available Vitals Date Recorded Body weight Body mass index (BMI) Body height Oxygen saturation Oxygen saturation in Arterial blood by Pulse oximetry Heart rate Systolic blood pressure Diastolic blood pressure Provider Name and Address Organization Details Last Updated DateTime 4 32627 g 29.4 kg/m2 162.56 cm 97 % 97 % 92 /min 106 mm[Hg] 62 mm[Hg] Kristy Dixon [facility] 13:58:31 Date Recorded Body height Body mass index (BMI) Body weight Heart rate Oxygen saturation Oxygen saturation in Arterial blood by Pulse oximetry Systolic blood pressure Diastolic blood pressure Provider Name and Address Organization Details Last Updated DateTime 162.56 cm 29.7 kg/m2 74884.4 8 g 94 /min 96 % 96 % 112 mm[Hg] 70 mm[Hg] Sue Tiwari [facility] 15:06:50 Social History Question Answer Notes LastModified by Organizat ion Details LastModified Time Tobacco Smoking Status Current Every Day Smoker Kristy Dixon [facility] 03/21/2024 13:56:45 What Was The Date [...] SNOMED-CT Code Diagnosis ICD10 Code Diagnosis Note [id number] JARROD BOSS MD RHEUMATOL O[facility] [address] [place] [address] 03/21/2024 13:36:54 03/22/2024 04:23:12 Psoriatic arthritis 751455356 L40.50 Long-term drug therapy 398273036 Z79.891 [id number] JARROD BOSS MD RHEUMATOL OGY [facility] [address] [place] [address] 04/19/2024 14:21:47 04/20/2024 04:59:45 Psoriatic arthritis 570182959 L40.50 Long-term drug therapy 436006757 Z79.891 [id number] MANNY BEASLEY APRN [facility] [address] [place] [address] 05/16/2024 07:59:27 05/16/2024 09:17:08 Psoriasis 9526245 L40.9 chronicsin ce early child hoodModera te - severe flareBSA > 10%Exacerb ation since starting Methotrexa te - patient d/c after 2nd dose due to worsening rashHas + joint pain hips, knees, ankles, feet and hands - worse in morning and after any periods of inactivity ; currently treating with sulfasalaz ine not controllin g but not seeing benefit- joint pain has been unresponsi ve to steroids in the past per patient report. Discussed diagnosis and treatment options including biologic therapies - Skyrizi, Tremfya, Cosentyx. Risks/bene fits and potential side effects of each reviewed. Patient reports h/o GI issues and would prefer to avoid Cosentyx at this time.Will try to get Skyrizi approvedIn the meantime;S tart augmented betamethas one 0.05% cream for larger plaques on buttocks, feet, legs, and elbowsclob etasol scalp solution 0.05% for ears and scalp - apply topicals BID x 2 weeks then decrease to only 2-3 times per week as needed for itching.Ri sks/benefi ts and possible side effects of custodial topical steroids reviewed. Continue current skin care routine of DoVe body wash and Aveeno oatmeal lotion dailyStart CeraVe anti-itch moisturizi ng cream daily as needed for itching areas. Will give Kenalog 40 mg IM in L dorsoglute al today to help calm itch and inflammati on from flareRisks /benefits and possible side effects of IM steroid reviewed. Pt verbalized understand ing. Follow up pending [place] approval [id number] YUDITH UGALDE [facility] [address] [place] [address] 05/30/2024 13:11:56 05/30/2024 14:31:47 Psoriasis 8214054 L40.9 chronicsin ce early child hoodModera te - severe flareBSA > 10%Exacerb ation since starting Methotrexa te - patient d/c after 2nd dose due to worsening rashHas + joint pain hips, knees, ankles, feet and hands - worse in morning and after any periods of inactivity ; currently treating with sulfasalaz ine but not seeing benefit- joint pain has been unresponsi ve to steroids in the past per patient report.Min imal improvemen t in skin rash with topical steroids and IM kenalog since last visit.Pablo mmend:Cont inue current skin care routine of Dove body wash and Aveeno oatmeal lotion daily andCeraVe anti-itch moisturizi ng cream daily as needed for itching areas. Discussed treatment options for psoriasis including oral Otezla and Sotyktu, as well as biologic therapies including Skyrizi and Tremfya.Re viewed side effect profiles for each medication - Patient denies any h/o tuberculos is, liver/bloo d abnormalit ies, heart failure, or hepatitis. After considerat ion of options, patient is agreeable to taking Skyrizi.Se lf injection protocols reviewed with patient and spouse who were able to verbalize understand ing. Gave patient a sample injection of skyriziNDC [id number] 70Lot number [id number] 07/2025 Patient has been contacted by [facility] for shipment of medication to her home. She understand s to administer second injection of loading dose on 06/30/2024. Follow up in 3 months to recheck [id number] YUDITH UGALDE [facility] [address] [place] [address] 08/11/2024 11:58:19 08/11/2024 12:50:47 Psoriasis 1911739 L40.9 chronicsin ce early child hoodEssent ially [...] CMP - patient will have drawn at [facility] social distancing during flu and covid season as patient defers any vaccines. Follow up in Feb for recheck Health Concerns Section Related Observation LastModified by Organization Detblair ls LastModified Time None Recorded Concern Status LastModified by Organization Details LastModified Time None Recorded Advance Directives Directive None Recorded Payers Encounter Date Sequence Insurance Name Policy Number Policy Ortez Covered Member ID Ortez Member ID Guarantor Name 03/21/2024 1 [place] [id number] Robles Mcneill [id number] Marcin Mcneill 03/21/2024 2 [place] [id number] Marcin Mcneill [id number] Marcin Mcneill 04/19/2024 1 [place] [id number] Robles Mcneill [id number] Marcin Mcneill 04/19/2024 2 [place] [id number] Marcin Barrera Osito [id number] Marcin Schelier 05/16/2024 1 [place] [id number] Robles Mcneill [id number] Marcin Schelier 05/16/2024 2 [id number] Marcin Barrera Osito [id number] Marcin Mcneill 05/30/2024 1 [place] [id number] Robles Mcneill [id number] Marcin Mcneill 05/30/2024 2 [id number] Marcin Barrera Osito [id number] Marcin Osito 08/11/2024 1 [place] [id number] Robles Mcneill [id number] Marcin Mcneill 08/11/2024 2 [id number] Marcin Barrera Osito [id number] Marcin Mcneill Notes Date Note Type Note Provider Name and Address Organization Details Recorded Time 03/21/2024 text/html Here to [facility] for arthritis. It appears from her history that she has been diagnosed with possible psoriatic arthritis. She was prescribed sulfasalazine 1000 mg twice daily by her primary care in the last several years. She felt like this was helpful until several months ago.Also taking meloxicam 15 mg daily for the past year.She has a longstanding history of psoriasis since age 11. 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 This has affected her on her legs, buttocks, elbows, under breasts, scalp, ears. She tries to use topicals and goes to a tanning bed regularly.Reports chronic joint pain, stiffness, swelling in multiple areas for at least the past 10 years. Areas affected including her hands. Morning stiffness in the hands lasts a few hours. Moving tends to help. She has had swelling in her fingers daily. Wrists have similar symptoms. She has had 2 surgeries on left wrist for cyst removal. Has residual numbness in left hand. She denies swelling in her wrists. Elbows also have similar pain and stiffness. Shoulders will bother her mostly at night in the mornings. Throughout the day when she is active, stiffness improves in her shoulders as well. Knees bother her. Positive gel phenomenon. Ankles hurt frequently, especially after sitting for a while. Feet will get swollen at the end of the day. She denies significant stiffness, pain in her feet.She feels like her psoriasis and arthritis will flare together.No history of inflammatory bowel disease. She follows with GI for IBS and GERD. She reports being up-to-date on colonoscopy. Has had an internal hemorrhoids. There is strong family history of colon cancer.No history of inflammatory eye disease. She has had vision changes and eye twitching. Has not seen eye doctor recently. Reports dry mouth.Denies any oral ulcers, alopecia, pleuritic pain or shortness of breath, photosensitivity, dry eye, Raynaud's phenomenon.No history of DVT/PE.Denies any recent infections, fevers, blood in urine. JARROD BOSS MD [address] [place] [address], [address], [facility] 03/21/2024 16:06:50 04/19/2024 text/html Last seen 4. Since last visit, Prednisone taper tried, which she states was not helpful for either psoriasis or psoriatic arthritis. Continued with Sulfasalazine. Denies fevers. Stiffness in joints is lasting a few hours. Denies vision changes, blood in stool, abdominal pain. From initial HPI 03/21/24:Here to establish care for arthritis.It appears from her history that she has been diagnosed with possible psoriatic arthritis. She was prescribed sulfasalazine 1000 mg twice daily by her primary care in the last several years. She felt like this was helpful until several months ago.Also taking meloxicam 15 mg daily for the past year.She has a longstanding history of psoriasis since age 11. 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 This has affected her on her legs, buttocks, elbows, under breasts, scalp, ears. She tries to use topicals and goes to a tanning bed regularly.Reports chronic joint pain, stiffness, swelling in multiple areas for at least the past 10 years. Areas affected including her hands. Morning stiffness in the hands lasts a few hours. Moving tends to help. She has had swelling in her fingers daily. Wrists have similar symptoms. She has had 2 surgeries on left wrist for cyst removal. Has residual numbness in left hand. She denies swelling in her wrists. Elbows also have similar pain and stiffness.Shoulders will bother her mostly at night in the mornings. Throughout the day when she is active, stiffness improves in her shoulders as well.Knees bother her. Positive gel phenomenon.Ankles hurt frequently, especially after sitting for a while.Feet will get swollen at the end of the day. She denies significant stiffness, pain in her feet.She feels like her psoriasis and arthritis will flare together.No history of inflammatory bowel disease. She follows with GI for IBS and GERD. She reports being up-to-date on colonoscopy. Has had an internal hemorrhoids. There is strong family history of colon cancer.No history of inflammatory eye disease. She has had vision changes and eye twitching. Has not seen eye doctor recently.Reports dry mouth.Denies any oral ulcers, alopecia, pleuritic pain or shortness of breath, photosensitivity, dry eye, Raynaud's phenomenon.No history of DVT/PE.Denies any recent infections, fevers, blood in urine. JARROD BOSS MD [address] [place] [address], [phone], [facility] 04/19/2024 18:28:21 05/16/2024 text/html New patient referred by JARROD BOSS MD Patient presents today for a rash - History of psoriasis, psoriatic arthritis; outbreak of rash after starting Methotrexate Note in chart - methotrexate itchy rash started approx 2 days after 1st dose. After 2nd dose the rash now covers most of her body worse in feet/hands. Now the rash is raised and very red. Also minimal dizziness. Patient states she is broken out all over - x 3 weeks - itch is intense - red raised MANNY GOLD GALE, [employer] PROGRAM MANAGER [address] [place], [address], [facility] 05/16/2024 12:57:58 05/30/2024 text/html Established jasmeet ent Patient presents to the clinic today for Skyrizi injection training. PA approved through Jul 2024. Patient is concerned about the side effects of the medication. She would like to discuss this before proceeding with the injection. MANNY GOLD GALE, SUPPLY CHAIN PROGRAM MANAGER [address] [place], [address], [facility] 05/31/2024 08:04:21 08/11/2024 text/html Established [facility] ent Patient presents to the clinic today for AMALIA of psoriasis - treating with Skyrizi Patient states she is completely clear but does still have some itching on her flanks - will last about 2 weeks after injection then goes away Having joint pain - slightly better but not much Patient is concerned about the side effects of the medication. She would like to discuss this before proceeding with the injection. MANNY GOLD GALE, SUPPLY CHAIN PROGRAM MANAGER [address] [place], [address], [facility] 08/11/2024 14:24:07 OBGyn Episode No OBEpisode recorded.
== END 2024-09-25 23:59 | disposition home or self-care (01) ==
LOC: RAD 14:27
PROVIDERS: PCP Nurse Practitioner; Visit Provider Nurse Practitioner
DX: J32.9 Chronic sinusitis, unspecified (principal); R42 Dizziness and giddiness; R51.9 Headache, unspecified
CPT/HCPCS: 70486

== ENCOUNTER 2024-10-17 16:00 | Outpatient (RCR) | payer BC, MEDICAID, SELFPAY | END 2024-10-17 23:59 | disposition home or self-care (01) | LOC: OT 16:00 | PROVIDERS: PCP Nurse Practitioner; Visit Provider Orthopaedic Surgery Adult Reconstructive Orthopaedic Surgery | DX: M25.512 Pain in left shoulder (principal) | CPT/HCPCS: 97014; 97110; 97140; 97166; G0283 ==

== ENCOUNTER → 2025-01-08 10:00 | Outpatient (RCR) | payer BC, MEDICAID, SELFPAY | LOC: PT 12-26 09:04 | PROVIDERS: Visit Provider Orthopaedic Surgery Adult Reconstructive Orthopaedic Surgery | DX: M76.11 Psoas tendinitis, right hip (principal) | CPT/HCPCS: 20560; 97110; 97140; 97162; 97530 ==

== ENCOUNTER 2025-01-10 07:47 | Outpatient (CLI) | payer BC, MEDICAID, SELFPAY ==
--- OUTSIDE RECORDS SUMMARY | 2024-12-12 08:40 | XMS_ITS | Encounter Summary ---
Author Organization [facility] Address [address] [place] [address] Care Team Providers Care Vice President Quality Improvement Name Role Phone Lexii Medel Primary Care Provider [phone] Reason for Referral * Other Medical (Routine) - Authorized Specialty Diagnoses / Procedures Referred By Kavin macias Referred To Contact Sports Medicine Diagnoses Psoas tendinitis of right side Procedures Sports Medicine - USG Injection, Large Joint Daren Haider MD [email or web address] [place] [phone] Phone: tel: fax: [facility] [address] [place] [address], [address] [place] [address] Phone: tel: fax: Referral ID Status Reason Start Date Expiration Date V isits Requested Visits Authorized [id number] Authorized 12/12/2024 06/13/2026 1 1 * Consultation (Routine) - Authorized Specialty Diagnoses / Procedures Referred By Kavin macias Referred To Contact Physical Therapy Diagnoses Psoas tendinitis of right side Daren Haider MD [email or web address] [place] [phone] Phone: tel: fax: Referral ID Status Reason Start Date Expiration Date Visits Requested Visits Authorized [id number] Authorized Consult and Treat 12/12/2024 06/13/2026 1 1 Reason for Visit * Reason Comments Consult * Consultation (Routine) - Closed Specialty Diagnoses / Procedures Referred By Kavin macias Referred To Contact Orthopaedic Surgery Diagnoses Right hip pain Kza Dwyer MD [address] [place] [address] Phone: tel: fax: Daren Haider MD [address] [place] [address] Phone: tel: fax: Referral ID Status Reason Start Date Expiration Date V isits Requested Visits Authorized [id number] Closed Specialty Services Required 12/04/2024 06/05/2026 1 1 Encounter Details Date Type Department Care Team (Late st Contact Info) Description 12/12/2024 8:40 AM EDT Office Visit Medical Office Building Surgery [facility] [address], [address] [place] [address] Daren Haider MD [address] [place] [address] Right hip pain (Primary Dx); Psoas tendinitis of right side Social History Tobacco Use Types Packs/Day Years Used Date Smoking Tobacco: Every Day Cigarettes Smokeless Tobacco: Never Tobacco Cessation:Ready to Q uit: Not Asked; Counseling Given: Not Answered Alcohol Use Standard Drinks/Week Comments Yes 0 (1 standard drink = 0.6 oz pur e alcohol) socially Comments No Sex and Gender Information Value Date Recorded Sex Assigned at Not on file Legal Sex Female 6:37 PM EDT Gender Identity Not on file Sexual Orientation Not on file documented as of this encounter Last Filed Vital Signs Vital Sign Reading Time Taken Comments Blood Pressure 104/69 12/12/2024 9:22 AM EDT Pulse 80 12/12/2024 9:22 AM EDT Temperature - - Respiratory Rate - - Oxygen Saturation 98% 12/12/2024 9:22 AM EDT Inhaled Oxygen Concentration - - Weight 77.1 kg (170 lb) 12/12/2024 9:22 AM EDT Height 162.6 cm (5' 4 ) 12/12/2024 9:22 AM EDT Body Mass Index 29.18 12/12/2024 9:22 AM EDT documented in this encounter Miscellaneous Notes * Progress Notes - Bernabe Jin MD - 12/12/2024 8:40 AM EDT Subjective: Naheed Mcneill is a 54 y.o. y/o female who comes in today for right hip pain. The patient localizes the pain/problem to the anterior groin. The patient has had the problem for multiple years. The problem began gradually over time. The patient reports the pain as Sharp. The patient reports the pain as moderate to severe. The pain/problem is better with rest when sitting and meloxicam. The pain/problem is worse with laying flat at night, changing positions in bed, getting out of the car. Thepain is Continuous and Activity Related. The following treatments have been attempted: Anti-inflammatories and Injections. Patient's last injection was a right hip intra-articular corticosteroid injec tion [address] Dwyer and did not receive any relief. Past Medical History[1] Surgical History[2] Social History Socioeconomic History Marital status: Significant Other Spouse name: Not on file Number of children: Not on file Years of education: Not on file Highest education level: Not on file Occupational History Not on file Tobacco Use Smoking status: Every Day Current packs/day: 0.50 Types: Cigarettes Smokeless tobacco: Never Substance and Sexual Activity Alcohol use: Yes Comment: socially Drug use: Never Sexual activity: Not on file Other Topics Concern Not on file Social History Narrative Not on file Social Drivers of Health Financial Resource Strain: Not on file Food Insecurity: Not on file Transportation Needs: Not on file Physical Activity: Not on file Stress: Not on file Social Connections: Unknown (03/31/2023) Received from [facility] Family and Community Support Help with Day-to-Day Activities: Not on file Lonely or Isolated: Not on file Intimate Partner Violence: Unknown (03/31/2023) Received from [facility] Abuse Screen Unsafe at Home or Work/School: Not on file Feels Threatened by Someone?: Not on file Does Anyone Keep You from Contacting Others or Doint Things Outside the Home?: Not on file Physical Sign of Abuse Present: Not on file Housing Stability: Unknown (03/31/2023) Received from [facility] Housing Stability Current Living Arrangements: Not on file Potentially Unsafe Housing Conditions: Not on file Allergies[3] Current Medications[4] I have reviewed and updated the patient's past medical history, past surgical history, social history, and family history. This is located both in the patient's note and their intake form that has been scanned into the medical record for today's visit. 14 point review of systems was reviewed per signed intake sheet and is otherwise negative except asnoted above. Objective: Body mass index is 29.18 kg/m??. 01/26/2023 9:33 AM 02/19/2023 1:22 PM 12/12/2024 9:22 AM Vitals Systolic 117 100 104 Diastolic 79 68 69 Heart Rate 89 80 Height (cm) 162.6 cm 162.6 cm 162.6 cm Weight (kg) 73 kg 72.576 kg 77.111 kg BMI 27.62 kg/m2 27.46 kg/m2 29.18 kg/m2 BSA (m2) 1.82 m2 1.81 m2 1.87 m2 Visit Report Report Report Hip: Trendelenburg: None Limp: None Leg Lengths: Equal ROM: Internal rotation 45??, external rotation 30??, flexion to 140 Abduction strength level: 5/5 Pain location: Anterior groin My independent interpretation of radiographic testing shows: XR of the right hip shows no evidence of osteoarthritis or degenerative changes. No CAM or pincer deformity. Notes reviewed: sports medicine Results of tests reviewed: previous radiographs Assessment and plan: Right hip pain Psoas tendinitis of right side Orders Placed This Encounter Sports Medicine - USG Injection, Large Joint Pre-Op: XR Hip-Ankle Limb Alignment New Patient: XR Hip (AP Pelvis Standing with Jonas Marker / Frog Leg Lateral Standing) Physical Therapy (outgoing) No follow-ups on file. Patient presents with right hip pain in the setting of iliopsoas tendonitis. Discussed with the patient that due to the intra-articular corticosteroid injection provided no relief, we have low concern for her labrum being her pain generator. We will refer the patient to sports Medicine for a iliopsoas tendon injection and we will also refer to physical therapy for consideration of dry needling for pain relief. This problem is a chronic problem with some progression . Rx management per plan. [1] No past medical history on file. [2] No past surgical history on file. [3] No Known Allergies [4] Current Outpatient Medications Medication Sig Dispense Refill atorvastatin (Lipitor) 10 MG tablet azithromycin (Zithromax) 250 MG tablet benzonatate (Tessalon) 100 MG capsule ergocalciferol 1.25 MG (97666 UT) capsule GNP Vitamin D3 Extra Strength 25 MCG (1000 UT) tablet loratadine (Claritin) 10 MG tablet LORazepam (Ativan) 1 MG tablet meloxicam (Mobic) 15 MG tablet TAKE 1 TABLET DAILY 90 tablet 3 Misc Natural Products (GNP Glucosamine Chondroit DS) tablet polyethylene glycol (Miralax) 17 GM/SCOOP powder venlafaxine XR (Effexor-XR) 150 MG 24 hr capsule venlafaxine XR (Effexor-XR) 75 MG 24 hr capsule No current facility-administered medications for this visit. Cosigned by Daren Haider MD at 12/12/2024 10:05 AM EDT Associated attestation - Daren Haider MD - 12/12/2024 10:05 AM EDT I saw and evaluated the patient with the resident/fellow. I discussed the case with the resident/fellow and agree with the findings and plan as documented. Subjective: Naheed Mcneill is a 54 y.o. y/o female who comes in today for right hip pain. I have reviewed and updated the patient's past medical history, past surgical history, social history, and family history. This is located both in the patient's note and their intake form that has been scanned into the medical record for today's visit. 14 point review of systems was reviewed per signed intake sheet and is otherwise negative except asnoted above. Objective: Body mass index is 29.18 kg/m??. 01/26/2023 9:33 AM 02/19/2023 1:22 PM 12/12/2024 9:22 AM Vitals Systolic 117 100 104 Diastolic 79 68 69 Heart Rate 89 80 Height (cm) 162.6 cm 162.6 cm 162.6 cm Weight (kg) 73 kg 72.576 kg 77.111 kg BMI 27.62 kg/m2 27.46 kg/m2 29.18 kg/m2 BSA (m2) 1.82 m2 1.81 m2 1.87 m2 Visit Report Report Report Negative impingement sign Pain with resisted hip flexion My independent interpretation of radiographic testing shows: Right hip x-rays have been reviewed. No signs of any pincer or cam deformity. Does have increased outlet seen on the pelvis. Has reduced ischial femoral distance. Notes reviewed: outside physician Results of tests reviewed: previous radiographs Assessment and plan: Right hip pain Psoas tendinitis of right side Orders Placed This Encounter Sports Medicine - USG Injection, Large Joint Pre-Op: XR Hip-Ankle Limb Alignment New Patient: XR Hip (AP Pelvis Standing with Jonas Marker / Frog Leg Lateral Standing) Physical Therapy (outgoing) No follow-ups on file. Right hip pain with evidence of iliopsoas tendinitis. Given the lack response to the intra-articular injection as well as lack of impingement findings suggest that she does not have a symptomatic labral tear. We discussed the incidence of positive labral tear seen on MRI. This point with her smoking status in addition to her posterior pelvic tilt she has evidence of iliopsoas tendinitis. She would benefit from iliopsoas tendon sheath steroid injection. She would also benefit from physical therapy which I prescribed to work on core strengthening in addition to dry needling. Discussed the importance of smoking cessation as well as a maintenance program for core strengthening to prevent recurrence. In the interim will have her continue with meloxicam on a daily basis. Main risk is gastritis. This problem is a chronic problem with some progression . Minor procedure risk factors were discussed, (Injection site pain, infection, inflammation) and decision was made for procedure. Rx management per plan. documented in this encounter Plan of Treatment Upcoming Encounters Date Type Department Care Team (Late st Contact Info) Description 01/23/2025 3:30 PM EDT Procedure Visit [facility] [address] , [address] [place] [address] Rebekah Bob MD [address] [place] [address] Scheduled Orders Name Type Priority Associated Diagnoses Orde r Schedule Pre-Op: XR Hip-Ankle Limb Alignment Imaging Routine Right hip pain 1 Occurrences starting 12/12/2024 until 06/15/2026 Sports Medicine - USG Injection, Large Joint Procedures Routine Psoas tendinitis of right side Expected: 12/12/2024 (Approximate), Expires: 06/15/2026 Scheduled Referrals Name Type Priority Associated Diagnoses Order Schedule Physical Therapy (outgoing) Outpatient Referral Routine Psoas tendinitis of right side 1 Occurrences starting 12/12/2024 until 06/15/2026 documented as of this encounter Results * New Patient: XR Hip (AP Pelvis Standing with Jonas Marker / Frog Leg Lateral Standing) (12/12/2024 9:20 AM EDT) Anatomical Region Laterality Modality Lower Extremities, Hip Right Digital R adiography Impressions 12/12/2024 11:10 AM EDT No acute or suspicious osseous abnormality. CRITICAL RESULT: No. COMMUNICATION: Per this written report. By electronically signing this report, I, the attending physician, attest that I have personally reviewed the images/data for the above examination(s) and agree with the final edited report. Drafted by Lalo Boyce MD on 12/12/2024 9:27 AM Final report signed by Sarai Millard MD on 12/12/2024 11:10 AM Narrative 12/12/2024 11:10 AM EDT CLINICAL INDICATION: hip pain TECHNIQUE: XR HIP RIGHT 2 OR 3 VIEWS, XR LOWER EXTREMITY LEG LENGTH EVALUATION COMPARISON: 01/26/2023 radiograph, 11/10/2022 outside imaging MR FINDINGS: Right hip: The hip joints are well approximated. Bilateral coxa valga. Degenerative changes of the pubic symphysis. No fracture, dislocation or subluxation. Suboptimal visualization of the sacrum and coccyx secondary to overlying bowel gas. No significant hip joint space narrowing. Lower extremity leg: No acute or suspicious osseous finding. No suspicious soft tissue findings. No significant apparent leg length discrepancy. The knee and ankle joints appear grossly intact. Procedure Note Sarai Millard MD - 12/12/2024 CLINICAL INDICATION: hip pain TECHNIQUE: XR HIP RIGHT 2 OR 3 VIEWS, XR LOWER EXTREMITY LEG LENGTH EVALUATION COMPARISON: 01/26/2023 radiograph, 11/10/2022 outside imaging MR FINDINGS: Right hip: The hip joints are well approximated. Bilateral coxa valga.Degenerative changes of the pubic symphysis. No fracture, dislocation orsubluxation. Suboptimal visualization of the sacrum and coccyx secondaryto overlying bowel gas. No significant hip joint space narrowing. Lower extremity leg: No acute or suspicious osseous finding. No suspicioussoft tissue findings. No significant apparent leg length discrepancy. Theknee and ankle joints appear grossly intact. IMPRESSION: No acute or suspicious osseous abnormality. CRITICAL RESULT: No. COMMUNICATION: Per this written report. By electronically signing this report, I, the attending physician, abril I have personally reviewed the images/data for the aboveexamination(s) and agree with the final edited report. Drafted by Lalo Boyce MD on 12/12/2024 9:27 AM Final report signed by Sarai Millard MD on 12/12/2024 11:10 AM us Daren Haider MD IMG XR PROCEDURES Final Resu lt documented in this encounter Visit Diagnoses Diagnosis Right hip pain- Primary Pain in joint, pelvic region and thigh Psoas tendinitis of right side Right hip pain Pain in joint, pelvic region and thigh documented in this encounter Additional Health Concerns Assessment Noted Time A fall risk assessment has been complete d for the patient 12/12/2024 9:22 AM EDT A Body Mass Index follow-up plan has been documented for the patient 12/12/2024 10:05 AM EDT documented as of this encounter Care Teams Vice President Quality Improvement Relationship Specialty Start Date End Date Lexii Medel PA [address] [place] [address] PCP - General 11/01/20 documented as of this encounter
--- OUTSIDE RECORDS SUMMARY | 2024-12-12 09:07 | XMS_ITS | Encounter Summary ---
Author Organization Healthcare Address [address] [place] [address] Care Team Providers Care Fan Engine Engineer Name Role Phone Lexii Medel Primary Care Provider [phone] Encounter Details Date Type Department Care Team (Latest Contact Info) Description 12/12/2024 9:07 AM EDT - 12/12/2024 11:59 PM EDT Hospital Encounter Medical Office Building Radiology [facility] [place] [address] Right hip pain Discharge Disposition: Home or Self Care Social History Tobacco Use Types Packs/Day Years Used Date Smoking Tobacco: Every Day Cigarettes Smokeless Tobacco: Never Alcohol Use Standard Drinks/Week Comments Yes 0 (1 standard drink = 0.6 oz pur e alcohol) socially Comments No Sex and Gender Information Value Date Recorded Sex Assigned at Not on file Legal Sex Female 6:37 PM EDT Gender Identity Not on file Sexual Orientation Not on file documented as of this encounter Medications at Time of Discharge atorvastatin (Lipitor) 10 MG tablet 12/28/2022 azithromycin (Zithromax) 250 MG tablet 04/28/2022 benzonatate (Tessalon) 100 MG capsule 04/28/2022 ergocalciferol 1.25 MG (06256 UT) capsule 12/29/2022 GNP Vitamin D3 Extra Strength 25 MCG (1000 UT) tablet 01/07/2023 loratadine (Claritin) 10 MG tablet 12/01/2022 LORazepam (Ativan) 1 MG tablet 01/07/2023 meloxicam (Mobic) 15 MG tablet TAKE 1 TABLET DAILY 90 tablet 3 11/30/2024 Misc Natural Products (GNP Glucosamine Chondroit DS) tablet 01/07/2023 polyethylene glycol (Miralax) 17 GM/SCOOP powder 10/23/2022 venlafaxine XR (Effexor-XR) 150 MG 24 hr capsule 12/29/2022 venlafaxine XR (Effexor-XR) 75 MG 24 hr capsule 12/25/2022 documented as of this encounter Plan of Treatment Upcoming Encounters Date Type Department Care Team (Late st Contact Info) Description 01/23/2025 3:30 PM EDT Procedure Visit [facility] [address] [facility] [address] [facility], [address] [place] [address] [facility]bekah Bob MD [address] [facility] [address] [place] [address] Scheduled Orders Name Type Priority Associated Diagnoses Orde r Schedule Pre-Op: XR Hip-Ankle Limb Alignment Imaging Routine Right hip pain Once for 1 Occurrences starting 12/12/2024 until 12/12/2024 documented as of this encounter Procedures Procedure Name Priority Date/Time Associated Diagnosis Comments XR LOWER EXTREMITY LEG LENGTH EVALUATION Routine 12/12/2024 9:20 AM EDT Right hip pain XR HIP RIGHT 2 OR 3 VIEWS Routine 12/12/2024 9:20 AM EDT Right hip pain documented in this encounter Results * XR Lower Extremity Leg Length Evaluation (12/12/2024 9:20 AM EDT) Anatomical Region Laterality Modality Lower Extremities Digital Radiog meaghan Impressions 12/12/2024 11:10 AM EDT No acute [...] signing this report, I, the attending physician, atteri I have personally reviewed the images/data for the aboveexamination(s) and agree with the final edited report. Drafted by Lalo Boyce MD on 12/12/2024 9:27 AM Final report signed by Sarai Millard MD on 12/12/2024 11:10 AM us Daren Haider MD IMG XR PROCEDURES Final Resu lt * New Patient: XR Hip (AP Pelvis [...] signing this report, I, the attending physician, attestthat I have personally reviewed the images/data for the aboveexamination(s) and agree with the final edited report. Drafted by Lalo Boyce MD on 12/12/2024 9:27 AM Final report signed by Sarai Millard MD on 12/12/2024 11:10 AM us Daren Haider MD IMG XR PROCEDURES Final Resu lt documented in this encounter Visit Diagnoses Diagnosis Right hip pain Pain in joint, pelvic region and thigh documented in this encounter Additional Health Concerns Assessment Noted Time A fall risk assessment has been complete d for the patient 12/12/2024 9:22 AM EDT A Body Mass Index follow-up plan has been documented for the patient 12/12/2024 10:05 AM EDT documented as of this encounter Care Teams Fan Engine Engineer Relationship Specialty Start Date End Date Lexii Medel PA [address] [place] [address] PCP - General 11/01/20 documented as of this encounter
--- NOTE | 2025-01-10 | MR_ITS ---
FINAL REPORT CLINICAL HISTORY: HIP ARTHROGRAM. hip pain COMPARISON: 11/10/2022 FINDINGS: Multiplanar MR imaging of the right hip was performed after the intra-articular injection of dilute gadolinium solution. ARTICULAR CARTILAGE: No focal defects. GLENOHUMERAL: No filling defect to indicate loose body. LABRUM: Redemonstration of tear anterior labrum well seen on sagittal images 22-24 of proton density and T1 sequences. Lateral labrum intact. MARROW SIGNAL: Normal. ADJACENT SOFT TISSUES: Right trochanteric bursitis. Tendinitis of the gluteus minimus and medius tendons. IMPRESSION: Redemonstration of anterior labral tear, similar to the prior exam. Gluteus minimus and medius tendinitis. Reviewed, Interpreted and Dictated by Laron Red MD Transcribed by Ni Lopez Authenticated and [facility]
--- OUTSIDE RECORDS SUMMARY | 2025-01-10 07:49 | XMS_ITS | Encounter Summary ---
Author Organization [facility] Address [address] [place] [address] Care Team Providers Care Bingo Usher Name Role Phone Lexii Medel Primary Care Provider [phone] Reason for Referral * Consultation (Routine) - Closed Specialty Diagnoses / Procedures Referred By Kavin macias Referred To Contact Orthopaedic Surgery Diagnoses Right hip pain Kaz Dwyer MD [address] [place] [address] Phone: tel: fax: Daren Haider MD [address] [facility] [address] [place] [address] Phone: tel: fax: Referral ID Status Reason Start Date Expiration Date V isits Requested Visits Authorized [id number] Closed Specialty Services Required 12/04/2024 06/05/2026 1 1 Encounter Details Date Type Department Care Team (Late st Contact Info) Description 12/04/2024 Community [facility] Community Practice [address] [place] [address] Kaz Dwyer MD [address] [place] [address] Right hip pain (Primary Dx) Social History Tobacco Use Types Packs/Day Years Used Date Smoking Tobacco: Every Day Cigarettes Smokeless Tobacco: Never Alcohol Use Standard Drinks/Week Comments Yes 0 (1 standard drink = 0.6 oz pur e alcohol) socially Comments Unknown Sex and Gender Information Value Date Recorded Sex Assigned at Not on file Legal Sex Female 6:37 PM EDT Gender Identity Not on file Sexual Orientation Not on file documented as of this encounter Plan of Treatment Upcoming Encounters Date Type Department Care Team (Late st Contact Info) Description 01/23/2025 3:30 PM EDT Procedure Visit [facility] Orthopaedic Surgery & Sports Medicine [address], [address] [place] [address] Rebekah Bob MD [address] [place] [address] Scheduled Referrals Name Type Priority Associated Diagnoses Order Schedule Ambulatory referral to General Orthopaedics Outpatient Referral Routine Right hip pain Expected: 12/04/2024 (Approximate), Expires: 06/07/2026 documented as of this encounter Visit Diagnoses Diagnosis Right hip pain- Primary Pain in joint, pelvic region and thigh documented in this encounter Additional Health Concerns Assessment Noted Time A fall risk assessment has been complete d for the patient 02/19/2023 1:22 PM EDT A Body Mass Index follow-up plan has been documented for the patient 01/26/2023 10:10 AM EDT documented as of this encounter Care Teams Bingo Usher Relationship Specialty Start Date End Date Lexii Medel PA [address] [place] [address] PCP - General 11/01/20 documented as of this encounter
--- OUTSIDE RECORDS SUMMARY | 2025-01-10 07:49 | XMS_ITS | Encounter Summary ---
Author Organization [facility] Address [address] [place] [address] Care Team Providers Care Trim Machine Operator Name Role Phone Lexii Medel Primary Care Provider [phone] Encounter Details Date Type Department Care Team (Latest Contact Info) Description 12/12/2024 Travel Social History Tobacco Use Types Packs/Day Years [...] Description 01/23/2025 3:30 PM EDT Procedure Visit [facility] Orthopaedic Surgery & Sports Medicine [address], [address] [place] [address] Rebekah Bob MD [address] [facility] [address] [place] [address] documented as of this encounter Visit Diagnoses Not on filedocumented in this encounter Additional Health Concerns Assessment Noted Time A fall risk assessment has been complete d for the patient 12/12/2024 9:22 AM EDT A Body Mass Index follow-up plan has been documented for the patient 12/12/2024 10:05 AM EDT documented as of this encounter Care Teams Trim Machine Operator Relationship Specialty Start Date End Date Lexii Medel PA [address] [place] [id number] PCP - General 11/01/20 documented as of this encounter
--- OUTSIDE RECORDS SUMMARY | 2025-01-10 07:49 | XMS_ITS | Encounter Summary ---
Author Organization [facility] Address [address] [place] [address] Care Team Providers Care Process Stripper Name Role Phone Lexii Medel Primary Care Provider [phone] Reason for Visit * Reason Comments Med Refill Encounter Details Date Type Department Care Team (Late st Contact Info) Description 11/30/2024 Refill Medical Office Building Surgery Spine & Joint [address] [facility], [address] [place] [address] Daren Haider MD [address] [facility] [address] [place] [address] Social History Tobacco Use Types Packs/Day Years [...] Description 01/23/2025 3:30 PM EDT Procedure Visit [facility] Orthopaedic Surgery & Sports Medicine [address] [facility], [address] [place] [address] Rebekah Bob MD [address] [facility] [address] [place] [address] documented as of this encounter Visit Diagnoses Not on filedocumented in this encounter Additional Health Concerns Assessment Noted Time A fall risk assessment has been complete d for the patient 02/19/2023 1:22 PM EDT A Body Mass Index follow-up plan has been documented for the patient 01/26/2023 10:10 AM EDT documented as of this encounter Care Teams Process Stripper Relationship Specialty Start Date End Date Lexii Medel PA [address] [place] [address] PCP - General 11/01/20 documented as of this encounter
--- OUTSIDE RECORDS SUMMARY | 2025-01-10 07:49 | XMS_ITS | Clinical Summary ---
Author Organization [facility] Address [address] [place] [address] Care Team Providers Care Principal Military Analyst Name Role Phone Du Main MD Primary Care Provider [phone] Allergies Active Allergy Reactions Criticality Noted Date Comments Quetiapine Anxiety High 08/19/2022 Temazepam Swelling High 10/22/2022 Medications ARIPiprazole (ABILIFY) 2 MG tablet Take 1 tablet by mouth Daily. 12/29/2022 Active atorvastatin (LIPITOR) 10 MG tablet Take 1 tablet by mouth Daily. 12/28/2022 Active GNP Vitamin D3 Extra Strength 25 MCG (1000 UT) tablet Take 1 tablet by mouth Daily. 01/07/2023 Active vitamin D (ERGOCALCIFEROL) 1.25 MG (26121 UT) capsule capsule Take 1 capsule by mouth Every 7 (Seven) Days. 12/29/2022 Active loratadine (CLARITIN) 10 MG tablet Take 1 tablet by mouth Daily. 12/01/2022 Active LORazepam (ATIVAN) 1 MG tablet Take 1 tablet by mouth Every 8 (Eight) Hours As Needed. 10/06/2022 Active Misc Natural Products (GNP Glucosamine Chondroit DS) tablet Take 1 tablet by mouth 2 (Two) Times a Day. 01/07/2023 Active omeprazole (priLOSEC) 40 MG capsule Take 1 capsule by mouth 2 (Two) Times a Day. 02/21/2023 Active sulfaSALAzine (AZULFIDINE) 500 MG EC tablet Take 1 tablet by mouth 2 (Two) Times a Day. 02/20/2023 Active venlafaxine 225 MG tablet sustained-releas e 24 hour 24 hr tablet Take 1 tablet by mouth Daily With Breakfast. 02/03/2023 Active MELATONIN PO Take 20 mg by mouth Every Night. Active magnesium oxide (MAG-OX) 400 MG tablet Take 1 tablet by mouth Every Night. Active clindamycin (CLEOCIN) 300 MG capsule 05/17/2023 Active hydrOXYzine (ATARAX) 25 MG tablet 05/07/2023 Active OLANZapine (zyPREXA) 15 MG tablet 04/15/2023 Active HYDROcodone Bit-Homatrop MBr (HYCODAN) 5-1.5 MG/5ML solution 06/24/2023 Act kori nitrofurantoin (MACRODANTIN) 100 MG capsule 08/17/2023 Acti ve phenazopyridine (PYRIDIUM) 200 MG tablet 08/17/2023 Active atorvastatin (LIPITOR) 40 MG tablet 08/13/2023 Active venlafaxine XR (EFFEXOR-XR) 150 MG 24 hr capsule 08/09/2023 Ac tive venlafaxine XR (EFFEXOR-XR) 75 MG 24 hr capsule 08/09/2023 Ac tive Active Problems No known active problems Family History Medical History Relation Name Comments Colon cancer Father Liver cancer Father Colon polyps Neg Hx Esophageal cancer Neg Hx Relation Name Status Comments Father Social History Tobacco Use Types Packs/Day Years Used Date Smoking Tobacco: Every Day Cigarettes Smokeless Tobacco: Never Tobacco Cessation:Ready to Q uit: Not Asked; Counseling Given: Not Answered Alcohol Use Standard Drinks/Week Comments Yes 0 (1 standard drink = 0.6 oz pur e alcohol) occ Abuse Screen Answer Date Recorded Unsafe at Home or Work/School Not on file Feels Threatened by Someone? Not on file 04/2023 Does Anyone Keep You from Co ntacting Others or Doint Things Outside the Home? Not on file 03/31/2023 Physical Sign of Abuse Present Not on file 1 Housing Stability Answer Date Recorded Current Living Arrangements Not on file 03/21 Potentially Unsafe Housing Conditions Not on radha e 03/31/2023 Family and Community Support Answer Eddie e Recorded Help with Day-to-Day Activities Not on file 03/31/2023 Lonely or Isolated Not on file 03/31/2023 Employment Answer Date Recorded Do you want help finding or keeping work or a selene b? Not on file 03/31/2023 Disabilities Answer Date Recorded Concentrating, Remembering, or Making Decisions Difficulty Not on file 03/31/2023 Doing Errands Independently Difficulty Not on fi le 03/31/2023 Education Answer Date Recorded Help with school or training? Not on file Preferred Language Not on file 03/31/2023 Comments Unknown Sex and Gender Information Value Date Recorded Sex Assigned at Not on file Legal Sex Female 1:59 PM EDT Gender Identity Not on file Sexual Orientation Not on file Last Filed Vital Signs Vital Sign Reading Time Taken Comments Blood Pressure 130/90 09/06/2023 12:57 PM EDT Pulse 120 09/06/2023 12:57 PM EDT Temperature 36.4 C (97.6 F) 09/06/2023 12:57 PM EDT Respiratory Rate 18 03/31/2023 1:00 PM EDT Oxygen Saturation 96% 09/06/2023 12:57 PM EDT Inhaled Oxygen Concentration - - Weight 76.3 kg (168 lb 4.8 oz) 09/06/2023 12:57 PM EDT Height 160 cm (5' 2.99 ) 09/06/2023 12:57 PM EDT Body Mass Index 29.82 09/06/2023 12:57 PM EDT Plan of Treatment Health Maintenance Due Date Last Done Comments Annual Gynecologic Pelvic and Breast Exam 1972 Pneumococcal Vaccine 50+ (1 of 2 - PCV) 1991 TDAP/TD VACCINES (1 - Tdap) 1991 MAMMOGRAM 2012 COLOGUARD 2017 COLON CANCER SCREENING 5 YEA R SIGMOIDOSCOPY 2017 CT COLONOGRAPHY 2017 FECAL OCCULT BLOOD TEST 2017 FIT Testing (1 year) 2017 ZOSTER VACCINE (1 of 2) 2022 ANNUAL PHYSICAL 03/04/2023 HEPATITIS C SCREENING 03/04/2023 COVID-19 Vaccine (1 - season) 2024 INFLUENZA VACCINE 03/21/2025 COLONOSCOPY 04/09/2032 04/09/2022, 04/02/2022 COLORECTAL CANCER SCREENING 04/09/2032 Procedures Procedure Name Priority Date/Time Associated Diagnosis Comments SCANNED - COLONOSCOPY 04/02/2022 from Last 3 Months or Most Recently Relevant to Health Maintenance Results * SCANNED - COLONOSCOPY (04/02/2022) Qi Valenzuela PA-C CHART REVIEW TABS Fin al Result from Last 3 Months or Most Recently Relevant to Health Maintenance Insurance [facility] PPO Care Teams Principal Military Analyst Relationship Specialty Start Date End Date Du Main MD [address] [place] [address] PCP - General Family Medicine 05/25/23
--- OUTSIDE RECORDS SUMMARY | 2025-01-10 07:49 | XMS_ITS | Clinical Summary ---
Author Organization [facility] Address [address] [place] [address] Care Team Providers Care Supervisor Safety Deposit Name Role Phone Lexii Medel Primary Care Provider [phone] Allergies No known active allergies Medications atorvastatin (Lipitor) 10 MG tablet 12/28/2022 Active azithromycin (Zithromax) 250 MG tablet 04/28/2022 Active benzonatate (Tessalon) 100 MG capsule 04/28/2022 Active GNP Vitamin D3 Extra Strength 25 MCG (1000 UT) tablet 01/07/2023 Active ergocalciferol 1.25 MG (88845 UT) capsule 12/29/2022 Active loratadine (Claritin) 10 MG tablet 12/01/2022 Active LORazepam (Ativan) 1 MG tablet 01/07/2023 Active Misc Natural Products (GNP Glucosamine Chondroit DS) tablet 01/07/2023 Active polyethylene glycol (Miralax) 17 GM/SCOOP powder 10/23/2022 Active venlafaxine XR (Effexor-XR) 150 MG 24 hr capsule 12/29/2022 Ac tive venlafaxine XR (Effexor-XR) 75 MG 24 hr capsule 12/25/2022 Ac tive meloxicam (Mobic) 15 MG tablet TAKE 1 TABLET DAILY 90 tablet 3 11/30/2024 Active Encounters Date Type Department Care Team Description 12/13/2024 Telephone [facility] Orthopaedic Surgery & Sports Medicine [facility] access [facility] [address] [place] [address] None, None HCN Clinical Concern/Question 12/12/2024 9:07 AM EDT - 12/12/2024 11:59 PM EDT Hospital Encounter Medical Office Building Radiology [address] [place] [address] Right hip pain Discharge Disposition: Home or Self Care 12/12/2024 8:40 AM EDT Office Visit Medical Office Building Surgery Spine & Joint [address] [facility], [address] [place] [address] Daren Haider MD Right hip pain (Primary Dx); Psoas tendinitis of right side 12/12/2024 Travel 12/04/2024 Community [facility] Community Practice [address] [place] [address] Kaz Dwyer MD Right hip pain (Primary Dx) 11/30/2024 Refill Medical Office Building Surgery Spine & Joint [address] [facility], [address] [place] [address] Daren Haider MD from Last 3 Months Social History Tobacco Use Types Packs/Day Years [...] Mass Index 29.18 12/12/2024 9:22 AM EDT Plan of Treatment Upcoming Encounters Date Type Department Care Team (Late st Contact Info) Description 01/23/2025 3:30 PM EDT Procedure Visit [facility] Orthopaedic Surgery & Sports Medicine [address] [place] [address] Rebekah Bob MD [address] [place] [address] Health Maintenance Due Date Last Done Comments [facility]-Depression Screening 1972 [facility]-HIV Screening 1972 [facility]-Hepatitis C Screening 1972 [facility]-/Child/Adol SDOH Screenings 1972 [facility]- SDOH Screenings 1990 [facility]-Adult SDOH Screenings 1990 [facility]-DTaP,Tdap,and Td Vaccine s (1 - Tdap) 1991 [facility]-Hepatitis B Vaccines (1 of 3 - 19+ 3-dose series) 1991 [facility]-Pneumococcal Vaccine: 50 + Years (1 of 2 - PCV) 1991 CT Colonography 2017 Colonoscopy 2017 FIT-DNA 2017 FIT 2017 FOBT 2017 Sigmoidoscopy 2017 [facility]-Colorectal Cancer Screening 2017 [facility]-Breast Cancer Screening 2022 [facility]-Zoster Vaccines (1 of 2) 2022 [id number] Vaccine (1 - season) 2024 [facility]-Influenza Vaccine (#1) 2025 [facility]-Obesity Intervention Completed 025, 01/26/2023, 01/26/2023 HPV Vaccines Aged Out No longer eligi ble based on patient's age to complete this topic [facility]-HIB Vaccines Aged Out No longer e ligible based on patient's age to complete this topic [facility]-Hepatitis A Vaccines Aged Out No longer eligible based on patient's age to complete this topic [facility]-IPV Vaccines Aged Out No longer e ligible based on patient's age to complete this topic [facility]-Rotavirus Vaccines Aged Out No lo nger eligible based on patient's age to complete this topic Procedures Procedure Name Priority Date/Time Associated Diagnosis Comments XR LOWER EXTREMITY LEG LENGTH EVALUATION Routine 12/12/2024 9:20 AM EDT Right hip pain XR HIP RIGHT 2 OR 3 VIEWS Routine 12/12/2024 9:20 AM EDT Right hip pain from Last 3 Months Results * XR Lower Extremity Leg Length [...] MD IMG XR PROCEDURES Final Resu lt from Last 3 Months Insurance ANTHEM Care Teams Supervisor Safety Deposit Relationship Specialty Start Date End Date Lexii Medel PA [address] [place] [address] PCP - General 11/01/20
--- OUTSIDE RECORDS SUMMARY | 2025-01-10 07:49 | XMS_ITS | Encounter Summary ---
Author Organization [facility] Address [address] [place] [address] Care Team Providers Care Admitting Coordinator Name Role Phone Lexii Medel Primary Care Provider [phone] Reason for Visit * Reason Onset Date Comments HCN Clinical Concern/Question 12/13/2024 Encounter Details Date Type Department Care Team (Late st Contact Info) Description 12/13/2024 Telephone [facility] Orthopaedic Surgery & Sports Medicine [address], [address] [place] [address] None, None [address] [place], [place] [id number] HCN Clinical Concern/Question Social History Tobacco Use Types Packs/Day Years [...] on file documented as of this encounter Miscellaneous Notes * Telephone Encounter - Franny Cortez - 12/13/2024 11:13 AM EDT Called and scheduled * Telephone Encounter - Valentine Martínez - 12/13/2024 11:07 AM EDT Clinical Concern/Question Reason for Call: patient is returning a call to schedule injection in her hip Best contact number: [phone] (home) Optimal time of day to reach caller: ANYTIME Additional comments/information from caller: None Note: Please do not reply to this message. Follow-up communication and further actions as a result of this message need to be communicated with the patient directly, if the patient is not active onMyChart. If the patient is active on MyChart, they will receive notification of the communication/outcome via [employer]. documented in this encounter Plan of Treatment Upcoming Encounters Date Type Department Care Team (Late st Contact Info) Description 01/23/2025 3:30 PM EDT Procedure Visit [facility] Orthopaedic Surgery & Sports Medicine [address], [address] [place] [address] Rebekah Bob MD [address] [facility] [address] [place] [address] documented as of this encounter Visit Diagnoses Not on filedocumented in this encounter Additional Health Concerns Assessment Noted Time A fall risk assessment has been complete d for the patient 12/12/2024 9:22 AM EDT A Body Mass Index follow-up plan has been documented for the patient 12/12/2024 10:05 AM EDT documented as of this encounter Care Teams Admitting Coordinator Relationship Specialty Start Date End Date Lexii Medel PA [address] [place] [address] PCP - General 11/01/20 documented as of this encounter
--- OUTSIDE RECORDS SUMMARY | 2025-01-10 07:49 | XMS_ITS | Encounter Summary ---
Author Organization [facility] Address [address] [place] [address] Care Team Providers Care Supervisor Curing Room Name Role Phone Lexii Medel Primary Care Provider [phone] Reason for Referral * Consultation (Routine) - Closed Specialty Diagnoses / Procedures Referred By Kavin macias Referred To Contact Orthopaedic Surgery Diagnoses Right hip pain Amos Yates PA [address] [place] [address] Phone: tel: fax: Daren Haider MD [address] [facility] [address] [place] [address] Phone: tel: fax: Referral ID Status Reason Start Date Expiration Date Visits Re quested Visits Authorized [id number] Closed 12/25/2022 06/25/2024 1 1 Encounter Details Date Type Department Care Team (Late st Contact Info) Description 12/25/2022 Community [facility] Community Practice [address] [place] [address] Amos Yates PA [address] [place] [address] Right hip pain (Primary Dx) Social History Tobacco Use Types Packs/Day Years Used Date Smoking Tobacco: Never Assessed Comments Unknown Sex and Gender Information Value [...] Hospital Orthopaedic Surgery & Sports Medicine [address], [address] [place] [address] Rebekah Bob MD [address] [place] [address] Scheduled Referrals Name Type Priority Associated Diagnoses Order Schedule Ambulatory referral to Orthopaedics Joint Reconstruction Outpatient Referral Routine Right hip pain Expected: 12/25/2022 (Approximate), Expires: 06/27/2024 documented as of this encounter Visit Diagnoses Diagnosis Right hip pain- Primary Pain in joint, pelvic region and thigh documented in this encounter Care Teams Supervisor Curing Room Relationship Specialty Start Date End Date Lexii Medel PA [address] [place] [address] PCP - General 11/01/20 documented as of this encounter
--- OUTSIDE RECORDS SUMMARY | 2025-01-10 07:49 | XMS_ITS | Data Portability ---
Author Organization [facility]SE[facility] [place] Address [address] [place] [address] Care Team Providers Care [facility] [employer] Processor Name Role Phone RUDY RICHARDS Primary Care Provider Assessment Encounter Date Assessment Date Assessment LastModified by Organization Details LastModified Time 04/19/2024 04/19/2024 Hx psoriatic arthritis and psoriasis. [...] 05/30/2024 05/30/2024 Follow up in 3 months. 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 Not available Not available Not available NEUROLOGY RECHECK 2024 11:30A M MANNY HUGHES DO Not available Not available Not available Lab CBC w/ auto diff [address] [facility], [address] [place] [address], [id number], 04/26/2024 08:07:48 creatinin e, serum or plasma [address] [facility], [address] [place] [address], [id number], 04/26/2024 08:07:48 AST/SGOT (aspartat e aminotran sferase), serum or plasma [address] [facility], [address] [place] [address], [id number], 04/26/2024 08:07:48 ALT (alanine aminotran sferase), serum or plasma [address] [facility], [address] [place] [address], [id number], 04/26/2024 08:07:48 Referral None recorded. Procedures None recorded. Surgeries None recorded. Imaging None recorded. Medication Orders propranol ol ER 80 mg capsule,2 4 hr,extend ed release 2024 025 [facility], [address] [place], [place] [address]Sus[place], [id number], 10/23/2024 13:51:25 Skyrizi 150 mg/mL subcutane ous pen injector 2023 024 [email or web address] 9 [facility], [address] [place] [address], LEANN Cristobal, [id number], 05/31/2024 08:03:54 Kenalog 40 mg/mL suspensio n for injection 2023 024 [email or web address] 9 [facility], [address] [place] [address], LEANN Cristobal, [id number], 08/01/2024 12:31:08 betametha sone, augmented 0.05 % topical cream 2023 024 [facility] [place] [facility], [address] [place] [address], LEANN Cristobal, [id number], 05/16/2024 12:55:35 clobetaso l 0.05 % scalp solution 2023 024 [facility] [place] [facility], [address] [place] [address], LEANN Cristobal, [id number], 05/16/2024 12:55:37 Skyrizi 150 mg/mL subcutane ous pen injector 2023 024 [email or web address] 9 [facility], [facility] ([place] [address] [place] [address], [place], [place], [id number], 05/16/2024 13:20:48 methotrex ate sodium 2.5 mg tablet 2023 024 [facility] [place] [facility], [address] [place] [address] [place], [id number], 05/16/2024 09:00:17 folic acid 1 mg tablet 2023 024 CARMELINA Cristobal [facility], [address] [address] [place], [id number], 05/16/2024 08:59:24 Patient TargetsNo targets recorded. Patient Instructions Encounter Date Encounter Id Patient Instructions Last Modified By Organization Details Last Modified Time 05/30/2024 [id number] Education: We discussed the potential diagnostic options, options for further evaluation and treatments, and the risks and benefits of each. [email or web address] Not available 05/30/2024 13:39:20 08/11/2024 [id number] Education: We discussed the potential diagnostic options, options for further evaluation and treatments, and the risks and benefits of each. [email or web address] Not available 08/11/2024 12:14:53 Reason for Referral None Reported. Results Created Date Observation Date Name Description Value Unit Range Abnormal Flag Note LastModifiedBy Organization Detail LastModifiedTime 03/21/2003/21/2024 COMPL ETE BLOOD COUNT white blood cells 10.1 10*3/ uL 3.8-10 .8 normal Not Available [facility] [address] [place] [address], [id number], 03/21/2024 15:42:00 03/21/20 24 03/21/2024 COMPL ETE BLOOD COUNT red blood cells 4.19 10*6/ uL 3.80-5 .20 normal Not Available [facility] [address] [place] [address], [id number], 03/21/2024 15:42:00 03/21/2003/21/2024 COMPL ETE BLOOD COUNT hemoglobin 12.5 g/dL 12.0-1 6.0 normal Not Available [facility] [address] [place] [address], [id number], 03/21/2024 15:42:00 03/21/20 24 03/21/2024 COMPL ETE BLOOD COUNT hematocrit 37.6 % 35.0-4 7.0 normal Not Available [facility] [address] [place] [address], [address], 03/21/2024 15:42:00 03/21/20 24 03/21/2024 COMPL ETE BLOOD COUNT MCV 90 fL 80-100 normal Not Available [facility] [address] [place] [address], [address], 03/21/2024 15:42:00 03/21/20 24 03/21/2024 COMPL ETE BLOOD COUNT MCH 30 pg 26-35 normal Not Available [facility] [address] [place] [address], [address], 03/21/2024 15:42:00 03/21/20 24 03/21/2024 COMPL ETE BLOOD COUNT MCHC 33 g/dL 32-36 normal Not Available [facility] [address] [place] [address], [address], 03/21/2024 15:42:00 03/21/20 24 03/21/2024 COMPL ETE BLOOD COUNT RDW 12.7 % 11.0-1 5.0 normal Not Available [facility] [address] [place] [address], [address], 03/21/2024 15:42:00 03/21/20 24 03/21/2024 COMPL ETE BLOOD COUNT MPV 8.5 fL 6.2-10 .5 normal Not Available [facility] [address] [place] [address], [address], 03/21/2024 15:42:00 03/21/20 24 03/21/2024 COMPL ETE BLOOD COUNT platelet count 272 10*3/ uL 150-40 0 normal Not Available [facility] [address] [place] [address], [address], 03/21/2024 15:42:00 03/21/20 24 03/21/2024 COMPL ETE BLOOD COUNT neutrophil,a bsolute 6.7 10*3/ uL 1.6-8. 4 normal Not Available [facility] [address] [place] [address], [address], 03/21/2024 15:42:00 03/21/20 24 03/21/2024 COMPL ETE BLOOD COUNT lymphocyte,a bsolute 2.3 10*3/ uL 0.4-5. 1 normal Not Available [facility] [address] [place] [address], [address], 03/21/2024 15:42:00 03/21/20 24 03/21/2024 COMPL ETE BLOOD COUNT monocyte,abs olute 0.7 10*3/ uL 0.0-1. 2 normal Not Available [facility] [address] [place] [address], [address], 03/21/2024 15:42:00 03/21/20 24 03/21/2024 COMPL ETE BLOOD COUNT eosinophil,a bsolute 0.3 10*3/ uL 0.0-0. 8 normal Not Available [facility] [address] [place] [address], [address], 03/21/2024 15:42:00 03/21/20 24 03/21/2024 COMPL ETE BLOOD COUNT basophil,abs olute 0.1 10*3/ uL 0.0-0. 3 normal Not Available [facility] [address] [place] [address], [address], 03/21/2024 15:42:00 03/21/20 24 03/21/2024 COMPL ETE BLOOD COUNT % neutrophils 66.3 % 42.0-7 8.0 normal Not Available [facility] [address] [place] [address], [address], 03/21/2024 15:42:00 03/21/20 24 03/21/2024 COMPL ETE BLOOD COUNT % lymphocytes 22.9 % 11.0-4 7.0 normal Not Available [facility] [address] [place] [address], [address], 03/21/2024 15:42:00 03/21/20 24 03/21/2024 COMPL ETE BLOOD COUNT % monocytes 7.1 % 0.0-11 .0 normal Not Available [facility] [address] [place] [address], [address], 03/21/2024 15:42:00 03/21/20 24 03/21/2024 COMPL ETE BLOOD COUNT % eosinophils 2.8 % 0.0-7. 0 normal Not Available [facility] [address] [place] [address], [address], 03/21/2024 15:42:00 03/21/20 24 03/21/2024 COMPL ETE BLOOD COUNT % basophils 0.9 % 0.0-3. 0 normal Not Available [facility] [address] [place] [address], [address], 03/21/2024 15:42:00 03/21/20 24 03/21/2024 COMPL ETE BLOOD COUNT nucleated red cells 0.0 % 0.0-0. 9 normal Not Available [facility] [address] [place] [address], [address], 03/21/2024 15:42:00 03/21/20 24 03/21/2024 COMPL ETE BLOOD COUNT nucleated RBCs, absolute 0.00 10*3/ uL not estab. normal Not Available [facility] [address] [place] [address], [address], 03/21/2024 15:42:00 03/21/20 24 03/21/2024 HEPAT ITIS PANEL hepatitis A Ab, IgM NONREA CTIVE nonrea ctive normal Not Available [facility] [address] [place] [address], [address], 03/21/2024 16:04:10 03/21/20 24 03/21/2024 HEPAT ITIS PANEL hepatitis B surface Ag NONREA CTIVE nonrea ctive normal Not Available [facility] [address] [place] [address], [address], 03/21/2024 16:04:10 03/21/20 24 03/21/2024 HEPAT ITIS PANEL hepatitis B core Ab,IgM NONREA CTIVE nonrea ctive normal Not Available [facility] [address] [place] [address], [address], 03/21/2024 16:04:10 03/21/20 24 03/21/2024 HEPAT ITIS PANEL hcab, reflex viral RNA qt NONREA CTIVE nonrea ctive normal Antib odies to HCV were not detec tanmay; does not exclu de the possi bilit y of expos ure to HCV. Not Available [facility] [address] [place] [address], [address], 03/21/2024 16:04:10 03/21/20 24 03/21/2024 C REACT ANNALISE PROTE IN C reactive protein 0.69 mg/dL 0.00-0 .49 high Not Available [facility] [address] [place] [address], [address], 03/21/2024 16:11:01 03/21/20 24 03/21/2024 COMP. METAB OLIC PANEL glucose 114 mg/dL 74-100 high Not Available [facility] [address] [place] [address], [address], 03/21/2024 16:11:04 03/21/20 24 03/21/2024 COMP. METAB OLIC PANEL blood urea nitrogen 16 mg/dL 6-20 normal Not Available [facility] [address] [place] [address], [address], 03/21/2024 16:11:04 03/21/20 24 03/21/2024 COMP. METAB OLIC PANEL creatinine 1.00 mg/dL 0.50-0 .95 high Not Available [facility] [address] [place] [address], [address], 03/21/2024 16:11:04 03/21/20 24 03/21/2024 COMP. METAB OLIC PANEL BUN/creatini ne ratio 16 (calc ) 10-20 normal Not Available [facility] [address] [place] [address], [address], 03/21/2024 16:11:04 03/21/20 24 03/21/2024 COMP. METAB OLIC PANEL sodium 141 mmol/ L 136-14 5 normal Not Available [facility] [address] [place] [address], [address], 03/21/2024 16:11:04 03/21/20 24 03/21/2024 COMP. METAB OLIC PANEL potassium 4.0 mmol/ L 3.4-5. 0 normal Not Available [facility] [address] [place] [address], [address], 03/21/2024 16:11:04 03/21/20 24 03/21/2024 COMP. METAB OLIC PANEL chloride 102 mmol/ L 98-107 normal Not Available [facility] [address] [place] [address], [address], 03/21/2024 16:11:04 03/21/20 24 03/21/2024 COMP. METAB OLIC PANEL carbon dioxide 25 mmol/ L 22-31 normal Not Available [facility] [address] [place] [address], [address], 03/21/2024 16:11:04 03/21/20 24 03/21/2024 COMP. METAB OLIC PANEL anion gap 14 (calc ) 7-25 normal Not Available [facility] [address] [place] [address], [address], 03/21/2024 16:11:04 03/21/20 24 03/21/2024 COMP. METAB OLIC PANEL calcium 9.7 mg/dL 8.6-10 .2 normal Not Available [facility] [address] [place] [address], [address], 03/21/2024 16:11:04 03/21/20 24 03/21/2024 COMP. METAB OLIC PANEL total protein 7.5 g/dL 6.4-8. 3 normal Not Available [facility] [address] [place] [address], [address], 03/21/2024 16:11:04 03/21/20 24 03/21/2024 COMP. METAB OLIC PANEL albumin 4.4 g/dL 3.5-5. 2 normal Not Available [facility] [address] [place] [address], [address], 03/21/2024 16:11:04 03/21/20 24 03/21/2024 COMP. METAB OLIC PANEL globulin 3.1 1.5-4. 5 normal Not Available [facility] [address] [place] [address], [address], 03/21/2024 16:11:04 03/21/20 24 03/21/2024 COMP. METAB OLIC PANEL albumin/glob ulin ratio 1.4 (calc ) 1.1-2. 5 normal Not Available [facility] [address] [place] [address], [address], 03/21/2024 16:11:04 03/21/20 24 03/21/2024 COMP. METAB OLIC PANEL bilirubin, total <0.2 mg/dL 0.1-1. 2 normal Not Available [facility] [address] [place] [address], [address], 03/21/2024 16:11:04 03/21/20 24 03/21/2024 COMP. METAB OLIC PANEL alkaline phosphatase 119 U/L 30-121 normal Not Available [facility] [address] [place] [address], [address], 03/21/2024 16:11:04 03/21/20 24 03/21/2024 COMP. METAB OLIC PANEL AST 33 U/L 0-32 high Not Available [facility] [address] [place] [address], [address], 03/21/2024 16:11:04 03/21/20 24 03/21/2024 COMP. METAB OLIC PANEL ALT 35 U/L 0-33 high Not Available [facility] [address] [place] [address], [address], 03/21/2024 16:11:04 03/21/20 24 03/21/2024 COMP. METAB OLIC PANEL GFR 68 >= 60 normal NOT E New calcu latio n for GFR (CKD- EPI 2020) is formu lated witho ut race adjus tment facto rs at the recom menda tion of the Bertin Montoya y Tyrel spencer and Gordo Reardon ty of Nephr ology . This calcu latio n has not been valid ated in pregn ant women . For pedia tric patie nts refer to https ://jessica stovall.kimmy barrientos/jm alarcon s/KDO QI/gf r_cal culat orPed Not Available [facility] [address] [place] [address], [address], 03/21/2024 16:11:04 03/21/20 24 03/21/2024 ESR, AUTOM ATED ESR, automated 16 mm 0-29 normal Not Available [facility] [address] [place] [address], [address], 03/21/2024 17:28:46 03/21/20 24 03/22/2024 HLA B27 ANTIG EN hla B27 antigen NEGATI VE negati ve normal Not Available [facility] [address] [place] [address], [address], 03/22/2024 22:04:48 03/21/20 24 03/23/2024 QUANT IFERO N TB GOLD qtb gold NEGATI VE negati ve normal Negat annalise test resul t. M. tuber culos is compl ex infec tion unlik james. Not Available [facility] [address] [place] [address], [address], 03/24/2024 08:03:11 03/21/20 24 03/23/2024 QUANT IFERO N TB GOLD nil 0.02 IU/mL normal Not Available [facility] [address] [place] [address], [address], 03/24/2024 08:03:11 03/21/20 24 03/23/2024 QUANT IFERO N TB GOLD mitogen nil 5.98 IU/mL normal Not Available [facility] [address] [place], [address], 03/24/2024 08:03:11 03/21/20 24 03/23/2024 QUANT IFERO N TB GOLD TB1 nil 0.00 IU/mL normal Not Available [facility] [address] [place], [address], 03/24/2024 08:03:11 03/21/20 24 03/23/2024 QUANT IFERO [...] infor yolanda ovalles e refer to https ://ed celiaati on.qu gillianagnes titiCool Earth Solar. OnAir Player/f aq/FA Q204 (This link is being provi ded for infor antionette chavira/ educarlene flaherty l purpo ses only. ) Not Available [facility] [address] [place] [address], [address], 03/24/2024 08:03:11 03/22/20 24 03/21/2024 XR, hand, 3 or more view [address] [place] [address] Patien t Name: MARCIN Ford t : [birth year] Patien t 78 Orderi ng Provid er: [facility] EXAM DATE: 2023 EXAM: XR HUANG HANDS [...] Vikki marshall MD on 024 6:44 AM [facility] [address] [place] [address], [address], 03/24/2024 12:29:20 03/22/20 24 03/21/2024 XR, sacro iliac joint (s), 3 or more view [address] [place] [address] Liliana macias Name: MARCIN macias : [birth year] Liliana macias 78 Orderrm ng Provid er: [facility] EXAM DATE: 2023 EXAM: XR SACROI [...] By: Vikki marshall MD on 6:52 AM [facility] [address] [place] [address], [address], 03/24/2024 12:29:20 03/22/20 24 03/21/2024 XR, foot, 3 or more view [address] [place] [address] Liliana macias Name: MARCIN macias : [birth year] Liliana macias 78 Orderrm ng Provid er: [facility] EXAM DATE: 2023 EXAM: XR HUANG FEET [...] By: Vikki marshall MD on 6:52 AM [facility] [address] [place], [address], 03/24/2024 12:29:21 Result Notes None recorded. Problems Name Problem SNOMED Code Status Onset Date Resolution Date Notes Provider Name and Address Organization Details Recorded Time Essential tremor 189935911 Active 025 MANNY HUGHES, [address] [place] [address], [address] [place] [address], [facility] 13:31:13 Problem Notes None recorded. Procedures Surgical History Date Name Laterality Status Provider Name and Address Organization Details Recorded Time procedure on shoulder completed JARROD BOSS MD [address] [place] [address], [address] [place] [address], [facility] 03/21/2024 14:24:39 partial hysterectomy completed JARROD BOSS MD [address] [place] [address], [address] [place] [address], [facility] 03/21/2024 14:22:37 procedure on wrist completed JARROD BOSS MD [address] [place] [address], [address] [place] [address], [facility] 03/21/2024 14:22:50 excision of lesion of joint completed JARROD BOSS MD [address] [place] [address], [address] [place] [address], [facility] 03/21/2024 14:24:01 Imaging Results None recorded. Procedure Notes None recorded. Medical Equipment None Reported. Allergies Allergen ID Allergen Name Allergen Category Reaction Reaction Severity Criticality Documentation Date Start Date Code Code System Note Provider Name and Address Organization Details Recorded Time 661890 olanzapin e medicatio n swelling Not available Not available 03/21/2024 78977 RxNorm [facility] 13:51:59 Medications Name Sig Start Date Stop Date Status Note LastModified by Organization Details LastModified Time propranolo l ER 60 mg capsule,24 hr,extende d release Take 1 capsule every day by oral route. 10/23 completed Not Available Not Available Not Available betamethas one, augmented 0.05 % topical cream [...] completed Not Available Not Available Not Available propranolo l ER 80 mg capsule,24 hr,extende d release Take 1 capsule every day by oral route for 30 days. 2024 active Not Available Not Available Not Avai lable folic acid 1 mg tablet Take 1 [...] Available Not Available Not Available propranolo l 10/23 completed Not Available Not Available Not Available venlafaxin [...] Skyrizi 150 mg/mL subcutaneo us pen injector Inject 1 pen subcutan eously every 3 months for noaha nce dosing 2024 active Not Available Not Available Not Avai lable Veozah active Not Available Not Availa ble Not Available Vitals Date Recorded Body height Body mass index (BMI) Body weight Heart rate Oxygen saturation Oxygen saturation in Arterial blood by Pulse oximetry Systolic And Diastolic Provider Name and Address Organization Details Last Updated DateTime 162.56 cm 30.6 kg/m2 01511.4 4 g 90 /min 98 % 98 % 126/80 mm[Hg] Otilia Modilin [facility] 13:07:02 Date Recorded Body height Body mass index (BMI) Body weight Heart rate Oxygen saturation Oxygen saturation in Arterial blood by Pulse oximetry Systolic And Diastolic Provider Name and Address Organization Details Last Updated DateTime 162.56 cm 29.7 kg/m2 35819.4 8 g 94 /min 96 % 96 % 112/70 mm[Hg] Sue Alejandroons [facility] 15:06:50 Social History Question Answer Notes LastModified by Organizat ion Details LastModified Time Tobacco Smoking Status Current Every Day Smoker Krist[facility] 03/21/2024 13:56:45 What Is Your Level Of Caffeine Consumption? None [email or web address] Information not available 10/23/2024 What Was The Date Of Your Most Recent Tobacco Screening? 04/19/2024 [email or web address] Information not available 04/19/2024 What Is Your Relationship Status? [email or web address] Information not available 10/23/2024 How Much Tobacco Do You Smoke? 1 PPD [email or web address] Information not available 03/21/2024 Sex: Female Functional Status Question Answer Note LastModified by Organizat ion Details LastModified Time Do you use any illicit or recreational drugs? No [email or web address] Information not available 10/23/2024 What is your level of alcohol consumption? None [email or web address] Information not available 10/23/2024 Are you currently employed? No [email or web address] Information not available 10/23/2024 Mental Status None recorded. Family History Relationship Description Onset Age of this Age Resolved Age Notes LastModified by Organization Details LastModified Time Unspecified Relation Psoriasis variou s family member s with psoria sis; childr en, aunts, uncles , grandp arents Not available 03/21/2024 14:25:02 Father Malignant neoplastic disease Colon cancer , lung cancer [email or web address] Not available 10/23/2024 13:10:16 Mother Alcoholism Not availa ble 10/23/2024 13:10:08 Mother Heart disease [email or web address] Not available 2024 13:10:42 Mother Mental health problem [email or web address] Not available 2024 13:11:17 Mother Cerebrovascu lar accident [email or web address] Not available 10/2024 13:11:25 Sister Alcoholism [email or web address] Not availa ble 10/23/2024 13:10:08 Sister Heart disease [email or web address] Not available 2024 13:10:42 Sister Diabetes mellitus Not available 2024 13:11:02 Sister Mental health problem [email or web address] Not available 2024 13:11:17 Brother Heart disease [email or web address] Not available 2024 13:10:42 Brother Diabetes mellitus [email or web address] Not available 2024 13:11:02 Brother Mental health problem [email or web address] Not available 2024 13:11:17 Paternal Grandfather Diabetes mellitus Not available 2024 13:11:02 Medical History Condition Response Anxiety Disorder Y Arthritis Y Migraines Y Hypertension Y Depression Y Gynecological HistoryNo gynecological history recorded. Obstetrics History GPAL:G 0 P 0 0 0 0 Past Encounters Encounter ID Performer Location Encounter Start Date Encounter Closed Date Diagnosis/Indication Diagnosis SNOMED-CT Code Diagnosis ICD10 Code Diagnosis Note [id number] JARROD BOSS MD [facility] [address] [place] [address] 03/21/2024 13:36:54 03/22/2024 04:23:12 Psoriatic arthritis 623351830 L40.50 Long-term drug therapy 571776293 Z79.891 [id number] JARROD BOSS MD [facility] [address] [place] [address] 04/19/2024 14:21:47 04/20/2024 04:59:45 Psoriatic arthritis 641310733 L40.50 Long-term drug therapy 241905555 Z79.891 [id number] MANNY BEASLEY APRN [facility] [address] [place] [address] 05/16/2024 07:59:27 05/16/2024 09:17:08 Psoriasis 3743930 L40.9 chronicsin ce early child hoodModera te [...] sks/benefi ts and possible side effects of carpenters topical steroids reviewed. Continue current skin care [...] understand ing. Follow up pending PA approval [id number] YUD[facility] [address] [place] [address] 05/30/2024 13:11:56 05/30/2024 14:31:47 Psoriasis 0923981 L40.9 chronicsin ce early child hoodModera te [...] Gave patient a sample injection of skyriziNDC 8781-9561- 70Lot number [id number] 07/2025 Patient has been contacted by [facility] for shipment of medication to her home. She understand s to administer second injection of loading dose on 06/30/2024. Follow up in 3 months to recheck [id number] MANNY BEASLEY APRN [facility] [address] [place] [address] 08/11/2024 11:58:19 08/11/2024 12:50:47 Psoriasis [id number] L40.9 chronicsin ce early child hoodEssent ially [...] approved through 11/07/2024. Will check labs in - CBC, CMP - patient will have drawn at [facility] Encouraged social distancing during flu and covid season as patient defers any vaccines. Follow up in Feb for recheck [id number] MANNY HUGHES DO NEUROLOGY [address] [place] [address] 10/23/2024 12:56:37 10/25/2024 06:39:18 Essential tremor [id number] G25.0 Chronic condition that is gradually progressin g. She has had clinical benefits with propranolo l. She does feel that the medication is not working as well as it did previously so I suggested we increase her dose. She will let me know if any side effects once on the higher dose.She is educated on ET and its tendency to gradually progress over time.Behav ioral management strategies .I reassured her that I do not see any clinical signs of PD on her exam today. Health Concerns Section Related Observation LastModified by Organization [facility] LastModified Time None Recorded Concern Status LastModified by Organization Details LastModified Time None Recorded Advance Directives Directive None Recorded Payers Insurance Date Sequence Insurance Name Policy Number Policy Ortez Covered Member ID Ortez Member ID Guarantor Name 10/20/2024 1 [place] [id number] R Nick Tay Osito [id number] Marcin Osito 10/20/2024 2 [facility] (MEDICAID REPLACEMENT - HMO) Marcin Barrera Osito [id number] Marcin Osito 08/31/2024 2 [place] [id number] Marcin Barrera Osito [id number] Marcin Osito Notes Date Note Type Note Provider Name and Address Organization Details Recorded Time 04/19/2024 text/html Last seen 4. Since last [...] of psoriasis since age 11. 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 [...] fevers, blood in urine. JARROD BOSS MD [address] [place], [address], [facility] 04/19/2024 18:28:21 05/16/2024 text/html New patient referred [...] itch is intense - red raised MANNY ASIF BEASLEY APRN [address] [place], [address], [facility] 05/16/2024 12:57:58 05/30/2024 text/html Established jasmeet ent Patient presents to the clinic today for Skyrizi injection training. PA approved through Jul 2024. Patient is concerned about the side effects of the medication. She would like to discuss this before proceeding with the injection. MANNY BEASLEY, YUDITH [address] [place], [address], [facility] 05/31/2024 08:04:21 08/11/2024 text/html Established jasmeet ent Patient presents to [...] this before proceeding with the injection. MANNY BEASLEY APRN [address] [place], [address], [facility] 08/11/2024 14:24:07 10/23/2024 text/html 54 y/o right morgan ded female here for neurologic consultation requested by Veronica Richards regarding tremors. Marcin is the primary historian for today's visit. She reports having tremors for about three years. The tremors have gotten gradually worse.She finds anxiety and stress will exacerbate the tremors. She is prescribed propranolol for tremors. She does find this medication seems to help.She tried a lower dose of propranolol but then she was increased to propranolol ER 60mg daily. She does find this does help calm the tremors down. She feels she tolerates the medication well. She takes her medication first thing in the morning. The tremors are both hands and her head. She will have trouble with eating sometimes due to her tremors. She does also notice the tremor's more when she is reading or writing.Her father had a similar tremor. She tells me she had a MRI brain a few months ago. She tells me it came back normal. It was done at [facility]. MANNY HUGHES DO [address] [place], [address], [facility] 10/23/2024 13:43:03 OBGyn Episode No OBEpisode recorded.
--- NOTE | 2025-01-10 07:58 | IR_ITS ---
FINAL REPORT CLINICAL HISTORY: RT HIP PAIN 10.33 MGY 0.17 FLUORO TIME FINDINGS: Arthrogram Right hip injection for MRI arthrogram HISTORY: Right hip pain. PROCEDURE: After informed consent was obtained, a time-out was performed. Utilizing local anesthesia and sterile technique, with direct fluoroscopic guidance, access to the joint was obtained . A small amount of contrast was injected to confirm needle tip location. Additional gadolinium contrast was injected. IMPRESSION: Status post injection for MRI arthrogram without immediate complication. Please see MRI report. Fluoroscopy time: 17 seconds Radiation exposure in Reference air Kerma: 10.33 mGy Films reviewed , interpreted and dictated by Dr. Red. Transcribed by Fawad Moreland PA-C. Reviewed, Interpreted and Dictated by Laron Red MD Transcribed by GONZALO Buenrostro Authenticated and . [facility]
== END 2025-01-10 23:59 | disposition home or self-care (01) ==
LOC: RAD 07:48
PROVIDERS: Visit Provider Physician Assistant
DX: S73.191A Other sprain of right hip, initial encounter (principal); M76.01 Gluteal tendinitis, right hip
CPT/HCPCS: 73525; 73722

== ENCOUNTER 2025-01-12 09:30 | Outpatient (CLI) | payer BC, MEDICAID, SELFPAY ==
--- OUTSIDE RECORDS SUMMARY | 2024-12-12 08:40 | XMS_ITS | Encounter Summary ---
Author Organization [facility] Address [address] [place] [address] Care Team Providers Care Real Estate Assessor Name Role Phone Lexii Medel Primary Care Provider [phone] Reason for Referral * Other Medical (Routine) - Authorized Specialty Diagnoses / Procedures Referred By Kavin macias Referred To Contact Sports Medicine Diagnoses Psoas tendinitis of right side Procedures Sports Medicine - USG Injection, Large Joint Daren Haider MD [address] [place] [phone] Phone: tel: fax: [facility] [address] [place] [address], [address] [place] [address] Phone: tel: fax: Referral ID Status Reason Start Date Expiration Date V isits Requested Visits Authorized [id number] Authorized 12/12/2024 06/13/2026 1 1 * Consultation (Routine) - Authorized Specialty Diagnoses / Procedures Referred By Kavin macias Referred To Contact Physical Therapy Diagnoses Psoas tendinitis of right side Daren Haider MD [address] [place] [phone] Phone: tel: fax: Referral ID Status Reason Start Date Expiration Date Visits Requested Visits Authorized [id number] Authorized Consult and Treat 12/12/2024 06/13/2026 1 1 Reason for Visit * Reason Comments Consult * Consultation (Routine) - Closed Specialty Diagnoses / Procedures Referred By Kavin macias Referred To Contact Orthopaedic Surgery Diagnoses Right hip pain Kaz Dwyer MD [address] [place] [address] Phone: tel: fax: Daren Haider MD [address] [place] [address] Phone: tel: fax: Referral ID Status Reason Start Date Expiration Date V isits Requested Visits Authorized [id number] Closed Specialty Services Required 12/04/2024 06/05/2026 1 1 Encounter Details Date Type Department Care Team (Late st Contact Info) Description 12/12/2024 8:40 AM EDT Office Visit Medical Office Building Surgery [facility] [address], [address] [place] [address] Daren Haider MD [address] [place] [address] Right hip pain (Primary Dx); [...] file Social Connections: Unknown (03/31/2023) Received from [facility] Family and Community Support Help with Day-to-Day Activities: Not on file Lonely or Isolated: Not on file Intimate Partner Violence: Unknown (03/31/2023) Received from [facility] Abuse Screen Unsafe at Home or Work/School: Not on file Feels Threatened by Someone?: Not on file Does Anyone Keep You from Contacting Others or Doint Things Outside the Home?: Not on file Physical Sign of Abuse Present: Not on file Housing Stability: Unknown (03/31/2023) Received from [facility] Housing Stability Current Living Arrangements: Not on [...] (Tessalon) 100 MG capsule ergocalciferol 1.25 MG (58215 UT) capsule GNP Vitamin D3 Extra Strength [...] 3:30 PM EDT Procedure Visit [facility] [address] , [address] [place] [address] Rebekah Bob MD [address] [place] [address] Scheduled Orders Name Type Priority Associated Diagnoses [...] documented as of this encounter Care Teams Real Estate Assessor Relationship Specialty Start Date End Date Lexii Medel PA [address] [place] [address] PCP - General 11/01/20 documented as of this encounter
--- OUTSIDE RECORDS SUMMARY | 2024-12-12 09:07 | XMS_ITS | Encounter Summary ---
Author Organization Healthcare Address [address] [place] [address] Care Team Providers Care Trouble Tracer Name Role Phone Lexii Medel Primary Care Provider [phone] Encounter Details Date Type Department Care Team (Latest Contact Info) Description 12/12/2024 9:07 AM EDT - 12/12/2024 11:59 PM EDT Hospital Encounter Medical Office Building Radiology [facility] [place] [address] Right hip pain Discharge Disposition: [...] 100 MG capsule 04/28/2022 ergocalciferol 1.25 MG (86882 UT) capsule 12/29/2022 GNP Vitamin D3 Extra [...] Description 01/23/2025 3:30 PM EDT Procedure Visit [facility]opa[facility] Surgery [facility] Sports Medicine [address] [facility], [address] [place] [address] Rebekah Bob MD [address] [facility] [facility] [address] [place] [address] Scheduled Orders Name Type Priority [...] joints appear grossly intact. Procedure Note Sarai Milladr MD - 12/12/2024 CLINICAL INDICATION: hip pain [...] documented as of this encounter Care Teams Trouble Tracer Relationship Specialty Start Date End Date Lexii Medel PA [address] [place] [address] PCP - General 11/01/20 documented as of this encounter
--- OUTSIDE RECORDS SUMMARY | 2025-01-12 09:35 | XMS_ITS | Data Portability ---
Author Organization [facility] [place] CLOS[facility] Address [address] [facility] [place] [address] Care Team Providers Care Long Term Care Pharmacist Name Role Phone RUDY RICHARDS Primary Care Provider [phone] Assessment Encounter Date Assessment Date Assessment LastModified [...] 05/30/2024 05/30/2024 Follow up in 3 months. [email or web address] Not available 05/30/2024 14:00:20 08/11/2024 08/11/2024 Follow up in February [email or web address] Not available 08/11/2024 12:24:58 Plan of Treatment Reminders Order Date Submit Date Provider Last Modified By Organization Details Last Modified Time Details Appointments DERMATOLO GY VISIT 2024 01:30P Bruce BEASLEY FURNACE TAPPER Not available Not available Not available NEUROLOGY RECHECK 2024 11:30A M MANNY HUGHES DO Not available Not available Not available Lab CBC w/ auto diff [address] [facility], [address] [place] [address], [id number], 04/26/2024 08:07:48 creatinin e, serum or plasma [address] [facility], [address] [place] [address], [address], 04/26/2024 08:07:48 AST/SGOT (aspartat e aminotran sferase), serum or plasma [address] [facility], [address] [place] [address], [address], 04/26/2024 08:07:48 ALT (alanine aminotran sferase), serum or plasma [address] [facility], [address] [place] [address], [address], 04/26/2024 08:07:48 Referral None recorded. Procedures None recorded. Surgeries None recorded. Imaging None recorded. Medication Orders propranol ol ER 80 mg capsule,2 4 hr,extend ed release 2024 025 [facility], [address] [place], [place] [address]Sus[place], [id number], 10/23/2024 13:51:25 Skyrizi 150 mg/mL subcutane ous pen injector 2023 024 [email or web address] 9 [facility], [address] [place] [address], LEANN Cristobal, [id number], 05/31/2024 08:03:54 Kenalog 40 mg/mL suspensio n for injection 2023 024 [email or web address] 9 [facility], [address] [place] [address], LEANN Cristobal, [id number], 08/01/2024 12:31:08 betametha sone, augmented 0.05 % topical cream 2023 024 [facility], [address] [place] [address], LEANN Cristobal, [id number], 05/16/2024 12:55:35 clobetaso l 0.05 % scalp solution 2023 024 [facility], [address] [place] [address], LEANN Cristobal, [id number], 05/16/2024 12:55:37 Skyrizi 150 mg/mL subcutane ous pen injector 2023 024 [email or web address] 9 [facility], [facility] [place] [address] [place] [address], [place], [place], [id number], 05/16/2024 13:20:48 methotrex ate sodium 2.5 mg tablet 2023 024 [facility], [address] [place] [address] [place], [place], [id number], 05/16/2024 09:00:17 folic acid 1 mg tablet 2023 024 CARMELINA Cristobal [facility], [address] [address] [place], [id number], 05/16/2024 08:59:24 Patient TargetsNo targets recorded. Patient Instructions Encounter Date Encounter Id Patient Instructions Last Modified By Organization Details Last Modified Time 05/30/2024 [id number] Education: We discussed the potential diagnostic options, options for further evaluation and treatments, and the risks and benefits of each. [email or web address] Not available 05/30/2024 13:39:20 08/11/2024 [id number] Education: We discussed the potential diagnostic options, options for further evaluation and treatments, and the risks and benefits of each. [email or web address] Not available 08/11/2024 12:14:53 Reason for Referral None Reported. Results Created Date Observation Date Name Description Value Unit Range Abnormal Flag Note LastModifiedBy Organization Detail LastModifiedTime 03/21/2003/21/2024 COMPL ETE BLOOD COUNT white blood cells 10.1 10*3/ uL 3.8-10 .8 normal Not Available [facility] [address] [place] [address], [id number], 03/21/2024 15:42:00 03/21/20 24 03/21/2024 COMPL ETE BLOOD COUNT red blood cells 4.19 10*6/ uL 3.80-5 .20 normal Not Available [facility] [address] [place] [address], [id number], 03/21/2024 15:42:00 03/21/2003/21/2024 COMPL ETE BLOOD COUNT hemoglobin 12.5 g/dL 12.0-1 6.0 normal Not Available [facility] [address] [place] [address], [address], 03/21/2024 15:42:00 03/21/20 24 03/21/2024 COMPL ETE BLOOD COUNT hematocrit 37.6 % 35.0-4 7.0 normal Not Available [facility] [address] [place] [address], [address], 03/21/2024 15:42:00 03/21/20 24 03/21/2024 COMPL ETE BLOOD COUNT MCV 90 fL 80-100 normal Not Available [facility] [address] [place] [address], [address], 03/21/2024 15:42:00 03/21/20 24 03/21/2024 COMPL ETE BLOOD COUNT MCH 30 pg 26-35 normal Not Available [facility] [address] [place] [address], [address], 03/21/2024 15:42:00 03/21/20 24 03/21/2024 COMPL ETE BLOOD COUNT MCHC 33 g/dL 32-36 normal Not Available [facility] [address] [place] [address], [address], 03/21/2024 15:42:00 03/21/20 24 03/21/2024 COMPL ETE BLOOD COUNT RDW 12.7 % 11.0-1 5.0 normal Not Available [facility] [address] [place] [address], [address], 03/21/2024 15:42:00 03/21/20 24 03/21/2024 COMPL ETE BLOOD COUNT MPV 8.5 fL 6.2-10 .5 normal Not Available [facility] [address] [place] [address], [address], 03/21/2024 15:42:00 03/21/20 24 03/21/2024 COMPL ETE BLOOD COUNT platelet count 272 10*3/ uL 150-40 0 normal Not Available [facility] [address] [place] [address], [address], 03/21/2024 15:42:00 03/21/20 24 03/21/2024 COMPL ETE BLOOD COUNT neutrophil,a bsolute 6.7 10*3/ uL 1.6-8. 4 normal Not Available [facility] [address] [place] [address], [address], 03/21/2024 15:42:00 03/21/20 24 03/21/2024 COMPL ETE BLOOD COUNT lymphocyte,a bsolute 2.3 10*3/ uL 0.4-5. 1 normal Not Available [facility] [address] [place] [address], [address], 03/21/2024 15:42:00 03/21/20 24 03/21/2024 COMPL ETE BLOOD COUNT monocyte,abs olute 0.7 10*3/ uL 0.0-1. 2 normal Not Available [facility] [address] [place] [address], [address], 03/21/2024 15:42:00 03/21/20 24 03/21/2024 COMPL ETE BLOOD COUNT eosinophil,a bsolute 0.3 10*3/ uL 0.0-0. 8 normal Not Available [facility] [address] [place] [address], [address], 03/21/2024 15:42:00 03/21/20 24 03/21/2024 COMPL ETE BLOOD COUNT basophil,abs olute 0.1 10*3/ uL 0.0-0. 3 normal Not Available [facility] [address] [place] [address], [address], 03/21/2024 15:42:00 03/21/20 24 03/21/2024 COMPL ETE BLOOD COUNT % neutrophils 66.3 % 42.0-7 8.0 normal Not Available [facility] [address] [place] [address], [address], 03/21/2024 15:42:00 03/21/20 24 03/21/2024 COMPL ETE BLOOD COUNT % lymphocytes 22.9 % 11.0-4 7.0 normal Not Available [facility] [address] [place] [address], [address], 03/21/2024 15:42:00 03/21/20 24 03/21/2024 COMPL ETE BLOOD COUNT % monocytes 7.1 % 0.0-11 .0 normal Not Available [facility] [address] [place] [address], [address], 03/21/2024 15:42:00 03/21/20 24 03/21/2024 COMPL ETE BLOOD COUNT % eosinophils 2.8 % 0.0-7. 0 normal Not Available [facility] [address] [place] [address], [address], 03/21/2024 15:42:00 03/21/20 24 03/21/2024 COMPL ETE BLOOD COUNT % basophils 0.9 % 0.0-3. 0 normal Not Available [facility] [address] [place] [address], [address], 03/21/2024 15:42:00 03/21/20 24 03/21/2024 COMPL ETE BLOOD COUNT nucleated red cells 0.0 % 0.0-0. 9 normal Not Available [facility] [address] [place] [address], [address], 03/21/2024 15:42:00 03/21/20 24 03/21/2024 COMPL ETE BLOOD COUNT nucleated RBCs, absolute 0.00 10*3/ uL not estab. normal Not Available [facility] [address] [place] [address], [address], 03/21/2024 15:42:00 03/21/20 24 03/21/2024 HEPAT ITIS PANEL hepatitis A Ab, IgM NONREA CTIVE nonrea ctive normal Not Available [facility] [address] [place] [address], [address], 03/21/2024 16:04:10 03/21/20 24 03/21/2024 HEPAT ITIS PANEL hepatitis B surface Ag NONREA CTIVE nonrea ctive normal Not Available [facility] [address] [place] [address], [address], 03/21/2024 16:04:10 03/21/20 24 03/21/2024 HEPAT ITIS PANEL hepatitis B core Ab,IgM NONREA CTIVE nonrea ctive normal Not Available [facility] [address] [place] [address], [address], 03/21/2024 16:04:10 03/21/20 24 03/21/2024 HEPAT ITIS PANEL hcab, reflex viral RNA qt NONREA CTIVE nonrea ctive normal Antib odies to HCV were not detec tanmay; does not exclu de the possi bilit y of expos ure to HCV. Not Available [facility] [address] [place] [address], [address], 03/21/2024 16:04:10 03/21/20 24 03/21/2024 C REACT ANNALISE PROTE IN C reactive protein 0.69 mg/dL 0.00-0 .49 high Not Available [facility] [address] [place] [address], [address], 03/21/2024 16:11:01 03/21/20 24 03/21/2024 COMP. METAB OLIC PANEL glucose 114 mg/dL 74-100 high Not Available [facility] [address] [place] [address], [address], 03/21/2024 16:11:04 03/21/20 24 03/21/2024 COMP. METAB OLIC PANEL blood urea nitrogen 16 mg/dL 6-20 normal Not Available [facility] [address] [place] [address], [address], 03/21/2024 16:11:04 03/21/20 24 03/21/2024 COMP. METAB OLIC PANEL creatinine 1.00 mg/dL 0.50-0 .95 high Not Available [facility] [address] [place] [address], [address], 03/21/2024 16:11:04 03/21/20 24 03/21/2024 COMP. METAB OLIC PANEL BUN/creatini ne ratio 16 (calc ) 10-20 normal Not Available [facility] [address] [place] [address], [address], 03/21/2024 16:11:04 03/21/20 24 03/21/2024 COMP. METAB OLIC PANEL sodium 141 mmol/ L 136-14 5 normal Not Available [facility] [address] [place] [address], [address], 03/21/2024 16:11:04 03/21/20 24 03/21/2024 COMP. METAB OLIC PANEL potassium 4.0 mmol/ L 3.4-5. 0 normal Not Available [facility] [address] [place] [address], [address], 03/21/2024 16:11:04 03/21/20 24 03/21/2024 COMP. METAB OLIC PANEL chloride 102 mmol/ L 98-107 normal Not Available [facility] [address] [place] [address], [address], 03/21/2024 16:11:04 03/21/20 24 03/21/2024 COMP. METAB OLIC PANEL carbon dioxide 25 mmol/ L 22-31 normal Not Available [facility] [address] [place] [address], [address], 03/21/2024 16:11:04 03/21/20 24 03/21/2024 COMP. METAB OLIC PANEL anion gap 14 (calc ) 7-25 normal Not Available [facility] [address] [place] [address], [address], 03/21/2024 16:11:04 03/21/20 24 03/21/2024 COMP. METAB OLIC PANEL calcium 9.7 mg/dL 8.6-10 .2 normal Not Available [facility] [address] [place] [address], [address], 03/21/2024 16:11:04 03/21/20 24 03/21/2024 COMP. METAB OLIC PANEL total protein 7.5 g/dL 6.4-8. 3 normal Not Available [facility] [address] [place] [address], [address], 03/21/2024 16:11:04 03/21/20 24 03/21/2024 COMP. METAB OLIC PANEL albumin 4.4 g/dL 3.5-5. 2 normal Not Available [facility] [address] [place] [address], [address], 03/21/2024 16:11:04 03/21/20 24 03/21/2024 COMP. METAB OLIC PANEL globulin 3.1 1.5-4. 5 normal Not Available [facility] [address] [place] [address], [address], 03/21/2024 16:11:04 03/21/20 24 03/21/2024 COMP. METAB OLIC PANEL albumin/glob ulin ratio 1.4 (calc ) 1.1-2. 5 normal Not Available [facility] [address] [place] [address], [address], 03/21/2024 16:11:04 03/21/20 24 03/21/2024 COMP. METAB OLIC PANEL bilirubin, total <0.2 mg/dL 0.1-1. 2 normal Not Available [facility] [address] [place] [address], [address], 03/21/2024 16:11:04 03/21/20 24 03/21/2024 COMP. METAB OLIC PANEL alkaline phosphatase 119 U/L 30-121 normal Not Available [facility] [address] [place] [address], [address], 03/21/2024 16:11:04 03/21/20 24 03/21/2024 COMP. METAB OLIC PANEL AST 33 U/L 0-32 high Not Available [facility] [address] [place] [address], [address], 03/21/2024 16:11:04 03/21/20 24 03/21/2024 COMP. METAB OLIC PANEL ALT 35 U/L 0-33 high Not Available [facility] [address] [place] [address], [address], 03/21/2024 16:11:04 03/21/20 24 03/21/2024 COMP. METAB [...] s/KDO QI/gf r_cal culat orPed Not Available [facility] [address] [place] [address], [address], 03/21/2024 16:11:04 03/21/20 24 03/21/2024 ESR, AUTOM ATED ESR, automated 16 mm 0-29 normal Not Available [facility] [address] [place] [address], [address], 03/21/2024 17:28:46 03/21/20 24 03/22/2024 HLA B27 ANTIG EN hla B27 antigen NEGATI VE negati ve normal Not Available [facility] [address] [place] [address], [address], 03/22/2024 22:04:48 03/21/20 24 03/23/2024 QUANT IFERO N TB GOLD qtb gold NEGATI VE negati ve normal Negat annalise test resul t. M. tuber culos is compl ex infec tion unlik james. Not Available [facility] [address] [place] [address], [address], 03/24/2024 08:03:11 03/21/20 24 03/23/2024 QUANT IFERO N TB GOLD nil 0.02 IU/mL normal Not Available [facility] [address] [place] [address], [address], 03/24/2024 08:03:11 03/21/20 24 03/23/2024 QUANT IFERO N TB GOLD mitogen nil 5.98 IU/mL normal Not Available [facility] [address] [place], [address], 03/24/2024 08:03:11 03/21/20 24 03/23/2024 QUANT IFERO N TB GOLD TB1 nil 0.00 IU/mL normal Not Available [facility] [address] [place], [address], 03/24/2024 08:03:11 03/21/20 24 03/23/2024 QUANT IFERO [...] refer to https ://ed celiaati on.qu gillianagnes titiSterling Canyon. [employer]/f aq/FA Q204 (This link is being provi ded for infor antionette chavira/ educarlene flaherty l purpo ses only. ) Not Available [facility] [address] [place] [address], [address], 03/24/2024 08:03:11 03/22/20 24 03/21/2024 XR, hand, 3 or more view [address] [place] [address] Patien t Name: MARCIN Ford t : [birth year] Patien t 78 Orderi ng Provid er: [facility] EXAM DATE: 2023 EXAM: XR HUANG [...] Vikki marshall MD on 024 6:44 AM [facility] [address] [place] [address], [address], 03/24/2024 12:29:20 03/22/20 24 03/21/2024 XR, sacro iliac joint (s), 3 or more view [address] [place] [address] Liliana macias Name: MARCIN macias : [birth year] Liliana macias 78 Orderrm ng Provid er: [facility] EXAM DATE: 2023 EXAM: XR SACROI [...] By: Vikki marshall MD on 6:52 AM [facility] [address] [place] [address], [address], 03/24/2024 12:29:20 03/22/20 24 03/21/2024 XR, foot, 3 or more view [address] [place] [address] Liliana macias Name: MARCIN macias : [birth year] Liliana macias 78 Orderrm ng Provid er: [facility] EXAM DATE: 2023 EXAM: XR HUANG [...] By: Vikki marshall MD on 6:52 AM [facility] [address] [place], [address], 03/24/2024 12:29:21 Result Notes None recorded. Problems Name Problem SNOMED Code Status Onset Date Resolution Date Notes Provider Name and Address Organization Details Recorded Time Essential tremor 552670178 Active 025 MANNY HUGHES, [address] [place] [address], [address] [place] [address], [facility] 13:31:13 Problem Notes None recorded. Procedures Surgical History Date Name Laterality Status Provider Name and Address Organization Details Recorded Time procedure on shoulder completed JARROD BOSS MD [address] [place] [address], [address] [place] [address], [facility] 03/21/2024 14:24:39 partial hysterectomy completed JARROD BOSS MD [address] [place] [address], [address] [place] [address], [facility] 03/21/2024 14:22:37 procedure on wrist completed JARROD BOSS MD [address] [place] [address], [address] [place] [address], [facility] 03/21/2024 14:22:50 excision of lesion of joint completed JARROD BOSS MD [address] [place] [address], [address] [place] [address], [facility] 03/21/2024 14:24:01 Imaging Results None recorded. Procedure Notes None recorded. Medical Equipment None Reported. Allergies Allergen ID Allergen Name Allergen Category Reaction Reaction Severity Criticality Documentation Date Start Date Code Code System Note Provider Name and Address Organization Details Recorded Time 219572 olanzapin e medicatio n swelling Not available Not available 03/21/2024 98001 RxNorm [facility] 13:51:59 Medications Name Sig Start Date Stop [...] Last Updated DateTime 162.56 cm 30.6 kg/m2 67313.4 4 g 90 /min 98 % 98 % 126/80 mm[Hg] Otilia Modilin [facility] 13:07:02 Date Recorded Body height Body mass index (BMI) Body weight Heart rate Oxygen saturation Oxygen saturation in Arterial blood by Pulse oximetry Systolic And Diastolic Provider Name and Address Organization Details Last Updated DateTime 162.56 cm 29.7 kg/m2 92826.4 8 g 94 /min 96 % 96 % 112/70 mm[Hg] Sue Alejandroons [facility] 15:06:50 Social History Question Answer Notes LastModified by Organizat ion Details LastModified Time Tobacco Smoking Status Current Every Day Smoker Kristy [facility] 03/21/2024 13:56:45 What Is Your Level Of Caffeine Consumption? None [email or web address] Information not available 10/23/2024 What Was The Date Of Your Most Recent Tobacco Screening? 04/19/2024 [email or web address] Information not available 04/19/2024 What Is Your Relationship Status? [email or web address] Information not available 10/23/2024 How Much Tobacco Do You Smoke? 1 PPD hrick Information not available 03/21/2024 Sex: Female Functional Status Question Answer Note LastModified by Organizat ion Details LastModified Time Do you use any illicit or recreational drugs? No [email or web address] Information not available 10/23/2024 What is your level of alcohol consumption? None [email or web address] Information not available 10/23/2024 Are you currently employed? No [email or web address] Information not available 10/23/2024 Mental Status None recorded. Family History Relationship Description Onset Age of this Age Resolved Age Notes LastModified by Organization Details LastModified Time Unspecified Relation Psoriasis variou s family member s with psoria sis; childr en, aunts, uncles , grandp arents Not available 03/21/2024 14:25:02 Father Malignant neoplastic disease Colon cancer , lung cancer [email or web address] Not available 10/23/2024 13:10:16 Mother Alcoholism [email or web address] Not availa ble 10/23/2024 13:10:08 Mother Heart disease [email or web address] Not available 2024 13:10:42 Mother Mental health problem [email or web address] Not available 2024 13:11:17 Mother Cerebrovascu lar accident Not available 10/2024 13:11:25 Sister Alcoholism [email or web address] Not availa ble 10/23/2024 13:10:08 Sister Heart disease [email or web address] Not available 2024 13:10:42 Sister Diabetes mellitus [email or web address] Not available 2024 13:11:02 Sister Mental health problem [email or web address] Not available 2024 13:11:17 Brother Heart disease Not available 2024 13:10:42 Brother Diabetes mellitus [email or web address] Not available 2024 13:11:02 Brother Mental health problem [email or web address] Not available 2024 13:11:17 Paternal Grandfather Diabetes mellitus [email or web address] Not available 2024 13:11:02 Medical History Condition Response Depression Y Anxiety Disorder Y Arthritis Y Migraines Y Hypertension Y Gynecological HistoryNo gynecological history recorded. Obstetrics History GPAL:G 0 P 0 0 0 0 Past Encounters Encounter ID Performer Location Encounter Start Date Encounter Closed Date Diagnosis/Indication Diagnosis SNOMED-CT Code Diagnosis ICD10 Code Diagnosis Note [id number] JARROD BOSS MD [facility] [address] [place] [address] 03/21/2024 13:36:54 03/22/2024 04:23:12 Psoriatic arthritis 475415884 L40.50 Long-term drug therapy 972803975 Z79.891 [id number] JARROD BOSS MD [facility] [address] [place] [address] 04/19/2024 14:21:47 04/20/2024 04:59:45 Psoriatic arthritis 607258032 L40.50 Long-term drug therapy 824042294 Z79.891 [id number] MANNY BEASLEY APRN [facility] [address] [place] [address] 05/16/2024 07:59:27 05/16/2024 09:17:08 Psoriasis 4129708 L40.9 chronicsin ce early child hoodModera te [...] sks/benefi ts and 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 Continue current skin care [...] understand ing. Follow up pending [place] approval [id number] YUDITH UGALDE [facility] [address] [place] [address] 05/30/2024 13:11:56 05/30/2024 14:31:47 Psoriasis 3435077 L40.9 chronicsin ce early child hoodModera te [...] Gave patient a sample injection of skyriziNDC 2707-6048- 70Lot number [id number] 07/2025 Patient has been contacted by [facility] for shipment of medication to her home. She understand s to administer second injection of loading dose on 06/30/2024. Follow up in 3 months to recheck [id number] MANNY BEASLEY APRN [facility] [address] [place] [address] 08/11/2024 11:58:19 08/11/2024 12:50:47 Psoriasis 1381429 L40.9 chronicsin ce early child hoodEssent ially [...] CMP - patient will have drawn at [facility] Encouraged social distancing during flu and covid season as patient defers any vaccines. Follow up in Feb for recheck [id number] MANNY HUGHES DO NEUROLOGY [address] [place] [address] 10/23/2024 12:56:37 10/25/2024 06:39:18 Essential tremor 289371954 G25.0 Chronic condition that is gradually progressin [...] ID Guarantor Name 10/20/2024 1 [place] [id number] R Nick Tay Osito [id number] Marcin Osito 10/20/2024 2 [facility] (MEDICAID REPLACEMENT - HMO) Marcin Barrera Osito [id number] Marcin Osito 08/31/2024 2 [place] [id number] Marcin Barrera Osito [id number] Marcin Osito Notes Date Note Type Note Provider Name and Address Organization Details Recorded Time 04/19/2024 text/html ROS as noted in the HPI Last seen 03/21/24. Since last visit, Prednisone taper tried, which [...] of psoriasis since age 11. 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 [...] blood in urine. JARROD BOSS MD [address] [place], [address], [facility] 04/19/2024 18:28:21 05/16/2024 text/html ROS as noted in the [facility] New patient referred by JARROD OBSS MD Patient presents today for a rash [...] red raised MANNY ASIF BEASLEY APRN [address] [place], [place], [id number], [facility] 05/16/2024 12:57:58 05/30/2024 text/html ROS as noted in the HPI Established patient Patient presents to the clinic today for Skyrizi injection training. PA approved through Jul 2024. Patient is concerned about the side effects of the medication. She would like to discuss this before proceeding with the injection. MANNY BEASLEY, YUDITH [address] [place], [address], [facility] 05/31/2024 08:04:21 08/11/2024 text/html ROS as noted in the HPI Established patient Patient presents to the clinic [...] before proceeding with the injection. MANNY BEASLEY, FURNACE TAPPER [address] [place], [address], [facility] 08/11/2024 14:24:07 10/23/2024 text/html 54 y/o right handed female here for neurologic consultation requested by [...] came back normal. It was done at [facility]. MANNY HUGHES, [address] [place], [address], [facility] 10/23/2024 13:43:03 OBGyn Episode No OBEpisode recorded.
--- OUTSIDE RECORDS SUMMARY | 2025-01-12 09:35 | XMS_ITS | Encounter Summary ---
Author Organization [facility] Address [address] [place] [address] Care Team Providers Care Olap Developer Name Role Phone Lexii Medel Primary Care Provider [phone] Encounter Details Date Type Department Care Team [...] Description 01/23/2025 3:30 PM EDT Procedure Visit [facility] Orthopaedic Surgery & Sports Medicine [address], [address] [place] [address] Rebekah Bob MD [address] [facility] [address] [place] [address] documented as of this encounter Visit Diagnoses Not on filedocumented in this encounter Additional Health Concerns Assessment Noted Time A fall risk assessment has been complete d for the patient 12/12/2024 9:22 AM EDT A Body Mass Index follow-up plan has been documented for the patient 12/12/2024 10:05 AM EDT documented as of this encounter Care Teams Olap Developer Relationship Specialty Start Date End Date Lexii Medel PA [address] [place] [id number] PCP - General 11/01/20 documented as of this encounter
--- OUTSIDE RECORDS SUMMARY | 2025-01-12 09:35 | XMS_ITS | Encounter Summary ---
Author Organization [facility] Address [address] [place] [address] Care Team Providers Care Police Liaison Name Role Phone Lexii Medel Primary Care Provider [phone] Reason for Visit * Reason Comments Med Refill Encounter Details Date Type Department Care Team (Late st Contact Info) Description 11/30/2024 Refill Medical Office Building Surgery Spine & Joint [address], [address] [place] [address] Daren Haider MD [address] [facility] [address] [place] [address] Social History Tobacco Use Types [...] 3:30 PM EDT Procedure Visit [facility] Orthopaedic Surgery & Sports Medicine [address] [facility], [address] [place] [address] Rebekah Bob MD [address] [facility] [address] [place] [address] documented as of this encounter Visit Diagnoses Not on filedocumented in this encounter Additional Health Concerns Assessment Noted Time A fall risk assessment has been complete d for the patient 02/19/2023 1:22 PM EDT A Body Mass Index follow-up plan has been documented for the patient 01/26/2023 10:10 AM EDT documented as of this encounter Care Teams Police Liaison Relationship Specialty Start Date End Date Lexii Medel PA [address] [place] [address] PCP - General 11/01/20 documented as of this encounter
--- OUTSIDE RECORDS SUMMARY | 2025-01-12 09:35 | XMS_ITS | Encounter Summary ---
Author Organization [facility] Address [address] [place] [address] Care Team Providers Care Spool Cleaner Hand Name Role Phone Lexii Medel Primary Care Provider [phone] Reason for Referral * Consultation (Routine) - Closed Specialty Diagnoses / Procedures Referred By Kavin macias Referred To Contact Orthopaedic Surgery Diagnoses Right hip pain Amos Yates PA [address] [place] [address] Phone: tel: fax: Daren Haider MD [address] [facility] [address] [place] [address] Phone: tel: fax: Referral ID Status Reason Start Date Expiration Date Visits Re quested Visits Authorized [id number] Closed 12/25/2022 06/25/2024 1 1 Encounter Details Date Type Department Care Team (Late st Contact Info) Description 12/25/2022 Community [facility] [address] [place] [address] Amos Yates PA [address] [place] [address] Right hip pain (Primary Dx) [...] Description 01/23/2025 3:30 PM EDT Procedure Visit [facility] Orthopaedic Surgery & Sports Medicine [address], [address] [place] [address] Rebekah Bob MD [address] [place] [address] Scheduled Referrals Name Type Priority Associated Diagnoses Order Schedule Ambulatory referral to Orthopaedics Joint Reconstruction Outpatient Referral Routine Right hip pain Expected: 12/25/2022 (Approximate), Expires: 06/27/2024 documented as of this encounter Visit Diagnoses Diagnosis Right hip pain- Primary Pain in joint, pelvic region and thigh documented in this encounter Care Teams Spool Cleaner Hand Relationship Specialty Start Date End Date Lexii Medel PA [address] [place] [address] PCP - General 11/01/20 documented as of this encounter
--- OUTSIDE RECORDS SUMMARY | 2025-01-12 09:35 | XMS_ITS | Clinical Summary ---
Author Organization [facility] Address [address] [place] [address] Care Team Providers Care Bundle Wrapper Name Role Phone Du Main MD Primary Care Provider [phone] Allergies Active Allergy Reactions Criticality Noted Date [...] 01/07/2023 Active vitamin D (ERGOCALCIFEROL) 1.25 MG (17687 UT) capsule capsule Take 1 capsule by [...] Most Recently Relevant to Health Maintenance Insurance [facility] PPO Care Teams Bundle Wrapper Relationship Specialty Start Date End Date Du Main MD [address] [place] [address] PCP - General Family Medicine 05/25/23
--- OUTSIDE RECORDS SUMMARY | 2025-01-12 09:35 | XMS_ITS | Encounter Summary ---
Author Organization [facility] Address [address] [place] [address] Care Team Providers Care Plow Mechanic Name Role Phone Lexii Medel Primary Care Provider [phone] Reason for Referral * Consultation (Routine) - Closed Specialty Diagnoses / Procedures Referred By Kavin macias Referred To Contact Orthopaedic Surgery Diagnoses Right hip pain Kaz Dwyer MD [address] [place] [address] Phone: tel: fax: Daren Haider MD [address] [facility] [address] [place] [address] Phone: tel: fax: Referral ID Status Reason Start Date Expiration Date V isits Requested Visits Authorized [id number] Closed Specialty Services Required 12/04/2024 06/05/2026 1 1 Encounter Details Date Type Department Care Team (Late st Contact Info) Description 12/04/2024 Community [facility] [address] [place] [address] Kaz Dwyer MD [address] [place] [address] Right hip pain (Primary Dx) [...] Description 01/23/2025 3:30 PM EDT Procedure Visit [facility] Orthopaedic Surgery & Sports Medicine [address] [place] [address] Rebekah Bob MD [address] [place] [address] Scheduled Referrals Name Type Priority [...] documented as of this encounter Care Teams Plow Mechanic Relationship Specialty Start Date End Date Lexii Medel PA [address] [place] [address] PCP - General 11/01/20 documented as of this encounter
--- OUTSIDE RECORDS SUMMARY | 2025-01-12 09:35 | XMS_ITS | Clinical Summary ---
Author Organization [facility] Address [address] [place] [address] Care Team Providers Care Chicken Hanger Name Role Phone Lexii Medel Primary Care Provider Allergies No known active allergies Medications atorvastatin (Lipitor) 10 MG tablet 12/28/2022 Active azithromycin (Zithromax) 250 MG tablet 04/28/2022 Active benzonatate (Tessalon) 100 MG capsule 04/28/2022 Active GNP Vitamin D3 Extra Strength 25 MCG (1000 UT) tablet 01/07/2023 Active ergocalciferol 1.25 MG (71680 UT) capsule 12/29/2022 Active loratadine (Claritin) 10 [...] Type Department Care Team Description 12/13/2024 Telephone [facility] Orthopaedic Surgery & Sports Medicine [facility] [address] [place] [address] None, None [facility] Clinical Concern/Question 12/12/2024 9:07 AM EDT - 12/12/2024 11:59 PM EDT Hospital Encounter Medical Office Building Radiology [address] [place] [address] Right hip pain Discharge Disposition: Home or Self Care 12/12/2024 8:40 AM EDT Office Visit Medical Office Building Surgery Spine & Joint [address] [facility], [address] [place] [address] Daren Haider MD Right hip pain (Primary Dx); Psoas tendinitis of right side 12/12/2024 Travel 12/04/2024 Community [facility] [address] [place] [address] Kaz Dwyer MD Right hip pain (Primary Dx) 11/30/2024 Refill Medical Office Building Surgery Spine & Joint [address] [facility], [address] [place] [address] Daren Haider MD from Last [...] Health Orthopaedic Surgery & Sports Medicine [address] [place] [address] Rebekah Bob MD [address] [place] [address] Health Maintenance Due Date Last [...] 2022 [facility]-Zoster Vaccines (1 of 2) 2022 [id number]-24 Vaccine (1 - season) 2024 [facility]-Influenza Vaccine [...] Last 3 Months Insurance [employer]THE[employer] Care Teams Chicken Hanger Relationship Specialty Start Date End Date Lexii Medel PA [address] [place] [address] PCP - General 11/01/20
--- OUTSIDE RECORDS SUMMARY | 2025-01-12 09:35 | XMS_ITS | Encounter Summary ---
Author Organization [facility] Address [address] [place] [address] Care Team Providers Care School Office Manager Name Role Phone Lexii Medel Primary Care Provider [phone] Reason for Visit * Reason Onset Date Comments HCN Clinical Concern/Question 12/13/2024 Encounter Details Date Type Department Care Team (Late st Contact Info) Description 12/13/2024 Telephone [facility] Orthopaedic Surgery & Sports Medicine [address] [facility], [address] [place] [address] None, None [address] [place], [place] [id number] [facility]CN Clinical Concern/Question Social History Tobacco Use [...] injection in her hip Best contact number: [phone] (home) Optimal time of day to reach caller: ANYTIME Additional comments/information from caller: None Note: Please do not reply to this message. Follow-up communication and further actions as a result of this message need to be communicated with the patient directly, if the patient is not active onMyChart. If the patient is active on MyChart, they will receive notification of the communication/outcome via VoiceBunnyhart. documented in this encounter Plan of Treatment Upcoming Encounters Date Type Department Care Team (Late st Contact Info) Description 01/23/2025 3:30 PM EDT Procedure Visit [facility] Orthopaedic Surgery & Sports Medicine [address] [facility], [address] [place] [address] Rebekah Bob MD [address] [facility] [address] [place] [address] documented as of this encounter Visit Diagnoses Not on filedocumented in this encounter Additional Health Concerns Assessment Noted Time A fall risk assessment has been complete d for the patient 12/12/2024 9:22 AM EDT A Body Mass Index follow-up plan has been documented for the patient 12/12/2024 10:05 AM EDT documented as of this encounter Care Teams School Office Manager Relationship Specialty Start Date End Date Lexii Medel PA [address] [place] [address] PCP - General 11/01/20 documented as of this encounter
[2025-01-12 10:10] LABS: Hematocrit 39.8 % (37.0-47.0); Hemoglobin 12.6 g/dL (12.2-16.2); Immature Granulocytes % 0.6 %; Mean Corpuscular HGB Conc 31.7 g/dL (31.8-35.4); Mean Corpuscular Hemoglobin 29.2 pg (27.0-31.2); Mean Corpuscular Volume 92.1 fl (81-99); Nucleated Red Blood Cells % 0 %; Platelet Count 278 K/mm3 (142-424); Red Blood Count 4.32 M/mm3 (4.20-5.40); Red Cell Distribution Width-SD 43.2 fL; White Blood Count 9.5 K/mm3 (4.8-10.8)
== END 2025-01-12 23:59 | disposition home or self-care (01) ==
LOC: LAB 09:32
PROVIDERS: PCP Nurse Practitioner
DX: L40.9 Psoriasis, unspecified (principal)
CPT/HCPCS: 36415; 85025

== ENCOUNTER → 2025-03-10 20:29 | Outpatient (CLI) | payer MEDICARE, BC, SELFPAY ==
--- OUTSIDE RECORDS SUMMARY | 2025-01-23 15:30 | XMS_ITS | Encounter Summary ---
Author Organization [facility] Address [address] [place] [address] Care Team Providers Care Automobile Detailer Name Role Phone Lexii Medel Primary Care Provider [phone] Reason for Visit * Reason Comments Follow-up * Other Medical (Routine) - Closed Specialty Diagnoses / Procedures Referred By Kavin macias Referred To Contact Sports Medicine Diagnoses Psoas tendinitis of right side Procedures Sports Medicine - USG Injection, Large Joint Daren Haider MD [address] [facility] [address] [place] [address] Phone: tel: fax: [facility] Orthopaedic Surgery & Sports Medicine [address] [place] [address] Phone: tel: fax: Referral ID Status Reason Start Date Expiration Date Visits Re quested Visits Authorized [id number] Closed 12/12/2024 06/13/2026 1 1 Encounter Details Date Type Department Care Team (Late st Contact Info) Description 01/23/2025 3:30 PM EDT Procedure Visit [facility] Orthopaedic Surgery & Sports Medicine [address] [place] [address] Rebekah Bob MD [address] [facility] [address] [place] [address] Psoas tendinitis of right side Social History [...] Sign Reading Time Taken Comments Blood Pressure 134/78 01/23/2025 3:44 PM EDT Pulse - - Temperature - - Respiratory Rate - - Oxygen Saturation - - Inhaled Oxygen Concentration - - Weight 77.1 kg (170 lb) 01/23/2025 3:44 PM EDT Height 162.6 cm (5' 4 ) 01/23/2025 3:44 PM EDT Body Mass Index 29.18 01/23/2025 3:44 PM EDT documented in this encounter Miscellaneous Notes * Progress Notes - Matthew Lord MD - 01/23/2025 3:30 PM EDTAssociated Order(s): Sports Medicine - USG Injection, Large Joint: R iliopsoas bursa Pre-Procedure Diagnose(s): Psoas tendinitis of right side Post-Procedure Diagnose(s): Psoas tendinitis of right side Images from the original note were not included. Sports Medicine Procedure Note Encounter Date: 01/24/2025 Procedure Note Encounter Date: 02/20/2023 Chief Complaint: hip pain Hpi: Patient presents today as a consult from Dr. Haider for iliopsoas injection. She has had previous intra-articular injection that had not provided relief and there is concern of iliopsoas tendonitis. She was referred by Dr. Haider for both diagnostic and therapeutic injection PE: Right Hip --Inspection: No erythema, ecchymosis, or swelling noted. --Palpation: No pain to palpation over ASIS, iliac crest, PSIS, or greater trochanter. --Strength: Hip: 5/5 strength with flexion, extension, internal/external rotation, and abduction/adduction of the hip. Pain with resisted flexion --Special Tests: mild pain with ROMULO, FADIR, no pain with log roll. Assessment and Plan: Diagnosis Plan 1. Psoas tendinitis of right side Sports Medicine - USG Injection, Large Joint No orders of the defined types were placed in this encounter. After discussing risks and benefits, including but not limited to bleeding, infection and worseningpain, the patient wished to proceed with the procedure today. See procedure note. Post-injection care instructions were provided. Patient ID: Naheed Mcneill is a 54 y.o. female. Encounter Diagnosis Name Primary? Psoas tendinitis of right side Sports Medicine - USG Injection, Large Joint: R iliopsoas bursa Indications: pain Details: 25 G needle, ultrasound-guided anterior approach Medications: 10 mg lidocaine 1 %; 40 mg methylPREDNISolone acetate 40 MG/ML; 50 mg lidocaine 1 % Outcome: tolerated well, no immediate complications US Guided Procedure Note: Indication: Hip pain Procedure: Sonographically guided right iliopsoas bursa corticosteroid injection Informed Consent: Following denial of allergy and review of potential side effects and complications including, but not limited to, infection, allergic reaction, local tissue breakdown, systemic effects of corticosteroids, elevation of blood glucose, injury to soft tissue and/or nerves and seizure,the patient indicated understanding and agreed to proceed. Procedural pause conducted to verify: correct patient identity, procedure to be performed and, as applicable, correct side and site, correct patient position, availability of any special equipment orother special requirements. Justification for use of ultrasound guidance: The use of direct sonographic visualization of the needle (rather than a non-guided injection) was required to ensure accurate injection placement for diagnostic specificity, to maximize clinical efficacy and for safety purposes to minimize risk of bleeding or injury to nearby neurovascular structures. Technique: The procedure was carried out under sterile technique utilizing a sterile ultrasound transducer cover and sterile ultrasound gel. Pre-procedural scanning was performed to determine optimalneedle approach for the procedure. The patient was prepped and draped in the usual sterile fashion. Patient position: supine Approach: in plane Local anesthesia: 5 mL 1% Lidocaine Aspiration/Injection: Live sonographic guidance with a 5-1 mHz curvilinear array transducer was used throughout the procedure. A 25g 2 inch needle was used for local anesthesia and was guided into the iliopsoas bursa. After reconfirmation of needle placement, a mixture of 1cc 1% Lidocaine and 1cc 40mg/mL Depo-medrol was injected into the iliopsoas bursa. Post-Procedure Instructions: The patient tolerated the procedure well without complication and was discharged in good condition after a short observation period. The patient was instructed to avoid submerging the procedure site in water for 48-72 hours. The patient was instructed to contact me withany questions pertaining to the procedure and to inform me of the results of the procedure in approximately 7-10 days, as needed. Questions regarding general management should be directed to the patient's referring provider and the patient should keep all previously scheduled follow up appointments. Multiple ayers images were saved. Impression: Successful sonographically-guided right iliopsoas bursa corticosteroid injection. Procedure, treatment alternatives, risks and benefits explained, specific risks discussed. Consent was given by the patient. Immediately prior to procedure a time out was called to verify the correctpatient, procedure, equipment, client support analyst and site/side marked as required. Patient was prepped and draped in the usual sterile fashion. Associated attestation - Rebekah Bob MD - 02/02/2025 10:35 AM EDT I saw and evaluated the patient with the resident/fellow. I discussed the case with the resident/fellow and agree with the findings and plan as documented. and I personally performed the entirety of the procedure(s). documented in this encounter Plan of Treatment Not on file documented as of this encounter Procedures Procedure Name Priority Date/Time Associated Diagnosis Comments MS ARTHROCENTESIS ASPIR&/INJ MAJOR JT/BURSA W/US Routine 01/23/2025 3:30 PM EDT Psoas tendinitis of right side documented in this encounter Results * MS ARTHROCENTESIS ASPIR&/INJ MAJOR JT/BURSA W/US (01/23/2025 3:30 PM EDT) Narrative Rebekah Bob MD - 01/23/2025 3:30 PM EDT Rebekah Bob MD 02/02/2025 10:35 AM Sports Medicine - USG Injection, Large Joint: R iliopsoas bursa Indications: pain Details: 25 G needle, ultrasound-guided anterior approach Medications: 10 mg lidocaine 1 %; 40 mg methylPREDNISolone acetate 40 MG/ML; 50 mg lidocaine 1 % Outcome: tolerated well, no immediate complications US Guided Procedure Note: Indication: Hip pain Procedure: Sonographically guided right iliopsoas bursa corticosteroid injection Informed Consent: Following denial of allergy and review of potential side effects and complications including, but not limited to, infection, allergic reaction, local tissue breakdown, systemic effects of corticosteroids, elevation of blood glucose, injury to soft tissue and/or nerves and seizure, the patient indicated understanding and agreed to proceed. Procedural pause conducted to verify: correct patient identity, procedure to be performed and, as applicable, correct side and site, correct patient position, availability of any special equipment or other special requirements. Justification for use of ultrasound guidance: The use of direct sonographic visualization of the needle (rather than a non-guided injection) was required to ensure accurate injection placement for diagnostic specificity, to maximize clinical efficacy and for safety purposes to minimize risk of bleeding or injury to nearby neurovascular structures. Technique: The procedure was carried out under sterile technique utilizing a sterile ultrasound transducer cover and sterile ultrasound gel. Pre-procedural scanning was performed to determine optimal needle approach for the procedure. The patient was prepped and draped in the usual sterile fashion. Patient position: supine Approach: in plane Local anesthesia: 5 mL 1% Lidocaine Aspiration/Injection: Live sonographic guidance with a 5-1 mHz curvilinear array transducer was used throughout the procedure. A 25g 2 inch needle was used for local anesthesia and was guided into the iliopsoas bursa. After reconfirmation of needle placement, a mixture of 1cc 1% Lidocaine and 1cc 40mg/mL Depo-medrol was injected into the iliopsoas bursa. Post-Procedure Instructions: The patient tolerated the procedure well without complication and was discharged in good condition after a short observation period. The patient was instructed to avoid submerging the procedure site in water for 48-72 hours. The patient was instructed to contact me with any questions pertaining to the procedure and to inform me of the results of the procedure in approximately 7-10 days, as needed. Questions regarding general management should be directed to the patient's referring provider and the patient should keep all previously scheduled follow up appointments. Multiple ayers images were saved. Impression: Successful sonographically-guided right iliopsoas bursa corticosteroid injection. Procedure, treatment alternatives, risks and benefits explained, specific risks discussed. Consent was given by the patient. Immediately prior to procedure a time out was called to verify the correct patient, procedure, equipment, client support analyst and site/side marked as required. Patient was prepped and draped in the usual sterile fashion. us Daren Haider MD IN CLINIC/BEDSIDE ORDERABLES Final Result documented in this encounter Visit Diagnoses Diagnosis Psoas tendinitis of right side documented in this encounter Administered Medications Inactive Administered Medications - up to 3 most recent administrations Medication Order MAR Action Action Date Dose Rate Site lidocaine (Xylocaine) 1 % injection 10 mg 10 mg, Intra-articular, Once PRN Procedure, 1 dose, Starting on Tue 8 at 1530, Until Tue 8 at 1530, RoutineIndications:Psoas tendinitis of right side Given 01/23/2025 3:30 PM EDT 10 mg lidocaine (Xylocaine) 1 % injection 50 mg 50 mg, Intra-articular, Once PRN Procedure, 1 dose, Starting on Tue 8 at 1530, Until Tue 8 at 1530, RoutineIndications:Psoas tendinitis of right side Given 01/23/2025 3:30 PM EDT 50 mg methylPREDNISolone acetate (DEPO-Medrol) injection 40 mg 40 mg, Intra-articular, Once PRN Procedure, 1 dose, Starting on 01/23/25 at 1530, Until Tue 8 at 1530, RoutineIndications:Psoas tendinitis of right side Given 01/23/2025 3:30 PM EDT 40 mg documented in this encounter Additional Health Concerns Assessment Noted Time A fall risk assessment has been complete d for the patient 01/23/2025 3:47 PM EDT A Body Mass Index follow-up plan has been documented for the patient 02/02/2025 10:35 AM EDT documented as of this encounter Care Teams Automobile Detailer Relationship Specialty Start Date End Date Lexii Medel PA [address] [place] [address] PCP - General 11/01/20 documented as of this encounter
--- OUTSIDE RECORDS SUMMARY | 2025-03-10 20:35 | XMS_ITS | Patient Health Record ---
Author Organization [facility] Address [address] [facility] [address] Cristobal [id number] Care Team Providers Care Galley Hand Name Role Phone Robles Bustillo Primary Care Provider Edson Ceja Unavailable [phone] Allergies Allergen (clinical drug ingredient) Drug/Non Drug Allergy documented on EMR Reaction Allergy Type Onset Date Status codeine Codeine rash and SOB Drug Allergy Acti ve Medications Medication SIG (Take, Route, Frequency, Duration) Notes Start Date End Date Status Symbyax 6-25 MG 1 cap(s) orally once a day (at bedtime) 09/16/2010 Active Metoprolol Tartrate 25 MG 1 tab q am, 1/ 2 q hs orally 09/03/2010 Active LORazepam 0.5 MG 1 tab orally 3 times a day prn 09/11/2010 Active Plan Of Treatment No Information Insurance Providers Payer Name Payer Address Payer Phone Subscriber Number Group Number Insured Name Patient Relationship to Insured Coverage Start Date Coverage End Date [facility] [address] [address] [place] [address] [id number] MARCIN WILLARD Self - patient is the insured [facility] [address] [place], [place] [id number] MARCIN VALDIVIA Self - patient is the insured Medical (General) History Medical History History ICD Code migraine headache 09/10/10 Thyroid studies normal 10/02 echo, mitral regurg, atrial shunt Surgical History Surgery Date(Month/Year) Bilateral tubal ligation cyst removal, left wrist X 2 Excision of benign breast mass, right br east hysterectomy vaginal 2009 Hospitalization History Reason Date(Month/Year) [facility] ER anxiety attack 09/15/10
--- OUTSIDE RECORDS SUMMARY | 2025-03-10 20:35 | XMS_ITS | Encounter Summary ---
Author Organization Healthcare Address [address] [place] [address] Care Team Providers Care Pharmacy Resident Name Role Phone Lexii Medel Primary Care Provider [phone] Encounter Details Date Type Department Care Team ([facility] st Contact Info) Description 11/10/2022 Orders Only External Location [address] [place] [address] Kaz Dwyer MD [address] [place] [address] Social History Tobacco Use Types Packs/Day Years Used Date Smoking Tobacco: Never Assessed Comments Unknown Sex and Gender Information Value Date Recorded Sex Assigned at Not on file Legal Sex Female 6:37 PM EDT Gender Identity Not on file Sexual Orientation Not on file documented as of this encounter Plan of Treatment Not on file documented as of this encounter Procedures Procedure Name Priority Date/Time Associated Diagnosis Comments MR OUTSIDE IMAGES 11/10/2022 9:23 AM EDT documented in this encounter Results * MR transfer of outside films (11/10/2022 9:23 AM EDT) Anatomical Region Laterality Modality Magnetic Resonan ce 11/10/2022 9:23 AM EDT Kaz Dwyer MD IMG MRI PROCEDURES Final Resul t documented in this encounter Visit Diagnoses Not on filedocumented in this encounter Care Teams Pharmacy Resident Relationship Specialty Start Date End Date Lexii Medel PA [address] [place] [address] PCP - General 11/01/20 documented as of this encounter
--- OUTSIDE RECORDS SUMMARY | 2025-03-10 20:35 | XMS_ITS | Encounter Summary ---
Author Organization Healthcare Address [address] [place] [address] Care Team Providers Care Care Transitions Manager Name Role Phone Lexii Medel Primary Care Provider [phone] Encounter Details Date Type Department Care Team ([facility] st Contact Info) Description 01/10/2025 Orders Only External Location [address] [place] [address] Amos Yates, [place] [address] Social History Tobacco Use Types Packs/Day Years [...] Procedure Name Priority Date/Time Associated Diagnosis Comments FL OUTSIDE IMAGES 01/10/2025 8:06 AM EDT documented in this encounter Results * FL OUTSIDE IMAGES (01/10/2025 8:06 AM EDT) Anatomical Region Laterality Modality Radiographic Natacha ging 01/10/2025 8:06 AM EDT Amos SÁNCHEZ IMG FLUOROSCOPY PROCEDURES Final Result documented in this encounter Visit Diagnoses Not on filedocumented in this encounter Additional Health Concerns Assessment Noted Time A fall risk assessment has been complete d for the patient 12/12/2024 9:22 AM EDT A Body Mass Index follow-up plan has been documented for the patient 12/12/2024 10:05 AM EDT documented as of this encounter Care Teams Care Transitions Manager Relationship Specialty Start Date End Date Lexii Medel PA [address] [place] [address] PCP - General 11/01/20 documented as of this encounter
--- OUTSIDE RECORDS SUMMARY | 2025-03-10 20:35 | XMS_ITS | Clinical Summary ---
Author Organization [facility] Address [address] [place] [address] Care Team Providers Care Low Pressure Kettle Operator Name Role Phone Du Main MD Primary Care Provider [phone] Allergies Active Allergy Reactions Criticality Noted Date [...] 01/07/2023 Active vitamin D (ERGOCALCIFEROL) 1.25 MG (76852 UT) capsule capsule Take 1 capsule by [...] SCREENING 03/04/2023 COVID-19 Vaccine (1 - season) 2025 INFLUENZA VACCINE 03/21/2025 COLONOSCOPY 04/09/2032 04/09/2022, 04/02/2022 COLORECTAL CANCER SCREENING 04/09/2032 Procedures Procedure Name Priority Date/Time Associated Diagnosis Comments SCANNED - COLONOSCOPY 04/02/2022 from Last 3 Months or Most Recently Relevant to Health Maintenance Results * SCANNED - COLONOSCOPY (04/02/2022) Qi Valenzuela PA-C CHART REVIEW TABS Fin al Result from Last 3 Months or Most Recently Relevant to Health Maintenance Insurance [facility] PPO Care Teams Low Pressure Kettle Operator Relationship Specialty Start Date End Date Du Main MD [address] [place] [address] PCP - General Family Medicine 05/25/23
--- OUTSIDE RECORDS SUMMARY | 2025-03-10 20:35 | XMS_ITS | Encounter Summary ---
Author Organization Healthcare Address [address] [place] [address] Care Team Providers Care Hospice Spiritual Care Coordinator Name Role Phone Lexii Medel Primary Care Provider [phone] Encounter Details Date Type Department Care Team ([facility] st Contact Info) Description 01/10/2025 Orders Only External Location [address] [place] [address] Amos Yates, [place] [address] Social History Tobacco Use Types Packs/Day Years [...] Name Priority Date/Time Associated Diagnosis Comments MR MSK OUTSIDE IMAGES 01/10/2025 8:19 AM EDT documented in this encounter Results * MR MSK OUTSIDE IMAGES (01/10/2025 8:19 AM EDT) Anatomical Region Laterality Modality Magnetic Resonan ce 01/10/2025 8:19 AM EDT us Amos SÁNCHEZ IMG MRI PROCEDURES Final Re sult documented in this encounter Visit Diagnoses Not on filedocumented in this encounter Additional Health Concerns Assessment Noted Time A fall risk assessment has been complete d for the patient 12/12/2024 9:22 AM EDT A Body Mass Index follow-up plan has been documented for the patient 12/12/2024 10:05 AM EDT documented as of this encounter Care Teams Hospice Spiritual Care Coordinator Relationship Specialty Start Date End Date Lexii Medel PA [address] [place] [address] PCP - General 11/01/20 documented as of this encounter
--- OUTSIDE RECORDS SUMMARY | 2025-03-10 20:35 | XMS_ITS | Encounter Summary ---
Author Organization [facility] Address [address] [place] [address] Care Team Providers Care Facilities Director Name Role Phone Lexii Medel Primary Care Provider [phone] Reason for Referral * Consultation (Routine) - Closed Specialty Diagnoses / Procedures Referred By Kavin macias Referred To Contact Orthopaedic Surgery Diagnoses Right hip pain Kaz Dwyer MD [address] [place] [address] Phone: tel: fax: Daren Haider MD [address] [facility] [address] [place] [address] Phone: tel: fax: Referral ID Status Reason Start Date Expiration Date V isits Requested Visits Authorized [id number] Closed Specialty Services Required 12/04/2024 06/05/2026 1 1 Encounter Details Date Type Department Care Team (Late st Contact Info) Description 12/04/2024 [facility] [address] [place] [address] Kaz Dwyer MD [address] [place] [address] Right hip pain (Primary Dx) [...] as of this encounter Plan of Treatment Scheduled Referrals Name Type Priority Associated Diagnoses [...] documented as of this encounter Care Teams Facilities Director Relationship Specialty Start Date End Date Lexii Medel PA [address] [place] [address] PCP - General 11/01/20 documented as of this encounter
--- OUTSIDE RECORDS SUMMARY | 2025-03-10 20:35 | XMS_ITS | Encounter Summary ---
Author Organization Healthcare Address [address] [place] [address] Care Team Providers Care Crowning Inspector Name Role Phone Lexii Medel Primary Care Provider [phone] Encounter Details Date Type Department Care Team ([facility] st Contact Info) Description 09/07/2022 Orders Only External Location [address] [place] [address] Provider, External Social History Tobacco Use Types Packs/Day Years [...] Name Priority Date/Time Associated Diagnosis Comments XR OUTSIDE IMAGES 09/07/2022 4:10 PM EDT documented in this encounter Results * XR OUTSIDE IMAGES (09/07/2022 4:10 PM EDT) Anatomical Region Laterality Modality Radiographic Natacha ging 09/07/2022 4:10 PM EDT us External Provider IMG XR PROCEDURES Final Result documented in this encounter Visit Diagnoses Not on filedocumented in this encounter Care Teams Crowning Inspector Relationship Specialty Start Date End Date Lexii Medel PA [address] [place] [address] PCP - General 11/01/20 documented as of this encounter
--- OUTSIDE RECORDS SUMMARY | 2025-03-10 20:35 | XMS_ITS | Clinical Summary ---
Author Organization Healthcare Address [address] [place] [address] Care Team Providers Care Restaurant Greeter Name Role Phone Lexii Medel Primary Care Provider [phone] Allergies No known active allergies Medications atorvastatin (Lipitor) 10 MG tablet 12/29/19 23 Active azithromycin (Zithromax) 250 MG tablet 04/28/20 22 Active benzonatate (Tessalon) 100 MG capsule 04/28/20 22 Active GNP Vitamin D3 Extra Strength 25 MCG (1000 UT) tablet 01/08/20 23 Active ergocalciferol 1.25 MG (03629 UT) capsule 12/30/19 23 Active loratadine (Claritin) 10 MG tablet 12/02/19 23 Active LORazepam (Ativan) 1 MG tablet 01/08/20 23 Active Misc Natural Products (GNP Glucosamine Chondroit DS) tablet 01/08/20 23 Active polyethylene glycol (Miralax) 17 GM/SCOOP powder 10/24/19 23 Active venlafaxine XR (Effexor-XR) 150 MG 24 hr capsule 12/30/19 23 Active venlafaxine XR (Effexor-XR) 75 MG 24 hr capsule 12/26/19 23 Active meloxicam (Mobic) 15 MG tablet TAKE 1 TABLET DAILY 90 tablet 3 12/01/19 25 Active Skyrizi Pen 150 MG/ML solution auto-injector Inject 1 pen subcutaneously every 3 months for maintenance dosing 11/23/19 25 Active Encounters Date Type Department Care Team Description 01/23/2025 3:30 PM EDT Procedure Visit [facility] Surgery [facility] Medicine [address], [address] [place] [address] Rebekah Bob MD Psoas tendinitis of right side 01/23/2025 Orders Only External Location [address] [place] [address] Provider, External 01/23/2025 Travel 01/10/2025 Orders Only External Location [address] [place] [address] Amos Yates PA 01/10/2025 Orders Only External Location [address] [place] [address] Amos Yates PA 12/13/2024 Telephone [facility] Orthopaedic Surgery & Sports Medicine [address] [facility], [address] [place] [address] None, None [facility] Clinical Concern/Question 12/12/2024 9:07 AM EDT - 12/12/2024 11:59 PM EDT Hospital Encounter [facility] Radiology [address] [place] [address] Right hip pain Discharge Disposition: Home or Self Care 12/12/2024 8:40 AM EDT Office Visit Medical Office Building Surgery [facility]ine [facility] [address] [facility], [address] [place] [address] Daren Haider MD Right hip pain (Primary Dx); Psoas tendinitis of right side 12/12/2024 Travel from Last 3 Months Social History Tobacco [...] Pressure 134/78 01/23/2025 3:44 PM EDT Pulse 80 12/12/2024 9:22 AM EDT Temperature - - Respiratory Rate - - Oxygen Saturation 98% 12/12/2024 9:22 AM EDT Inhaled Oxygen Concentration - - Weight 77.1 kg (170 lb) 01/23/2025 3:44 PM EDT Height 162.6 cm (5' 4 ) 01/23/2025 3:44 PM EDT Body Mass Index 29.18 01/23/2025 3:44 PM EDT Plan of Treatment Health Maintenance Due Date Last Done Comments [facility]-Depression Screening 1972 [facility]-HIV Screening 1972 [facility]-Hepatitis C Screening 1972 [facility]-/Child/Adol SDOH Screenings 1972 [id number] Vaccine (#1) 1977 [facility]- SDOH Screenings 1990 [facility]-Adult SDOH Screenings 1990 [facility]-DTaP,Tdap,and Td Vaccines (1 - Tdap) 1991 [facility]-Hepatitis B Vaccines (1 of 3 - 19+ 3-dose series) 1991 [facility]-Pneumococcal Vaccine: 50+ Years (1 of 2 - PCV) 1991 CT Colonography 2017 Colonoscopy 2017 FIT-DNA 2017 FIT 2017 FOBT 2017 Sigmoidoscopy 2017 [facility]-Colorectal Cancer Screening 2017 [facility]-Breast Cancer Screening 2022 [facility]-Zoster Vaccines (1 of 2) 2022 [facility]-Influenza Vaccine (#1) 2025 [facility]-Obesity Intervention Completed 025, 12/12/2024, 01/26/2023, Additional history exists HPV Vaccines Aged Out No longer eligi [...] Procedure Name Priority Date/Time Associated Diagnosis Comments MO ARTHROCENTESIS ASPIR&/INJ MAJOR JT/BURSA W/US Routine 01/23/2025 3:30 PM EDT Psoas tendinitis of right side POC ULTRASOUND 01/23/2025 MR MSK OUTSIDE IMAGES 01/10/2025 8:19 AM EDT FL OUTSIDE IMAGES 01/10/2025 8:0 6 AM EDT XR LOWER EXTREMITY LEG LENGTH EVALUATION Routine 12/12/2024 9:20 AM EDT Right hip pain XR HIP RIGHT 2 OR 3 VIEWS Routine 12/12/2024 9:20 AM EDT Right hip pain from Last 3 Months Results * MO ARTHROCENTESIS ASPIR&/INJ MAJOR JT/BURSA W/US (01/23/2025 3:30 [...] to verify the correct patient, procedure, equipment, child support investigator and site/side marked as required. Patient was prepped and draped in the usual sterile fashion. Daren Haider MD IN CLINIC/BEDSIDE ORDERABLES Final Result * POC Imaging (01/23/2025) Anatomical Region Laterality Modality Pelvis Other 01/23/2025 External Provider IMG POINT OF CARE ULTRASOUND F inal Result * MR MSK OUTSIDE IMAGES (01/10/2025 8:19 AM EDT) Anatomical Region Laterality Modality Magnetic Resonan ce 01/10/2025 8:19 AM EDT Amos SÁNCHEZ IMG MRI PROCEDURES Final Re sult * FL OUTSIDE IMAGES (01/10/2025 8:06 AM EDT) Anatomical Region Laterality Modality Radiographic Natacha ging 01/10/2025 8:06 AM EDT Amos SÁNCHEZ IMG FLUOROSCOPY PROCEDURES Final Result * XR Lower Extremity Leg Length Evaluation [...] Sarai Millard MD on 12/12/2024 11:10 AM Daren Haider MD IMG XR PROCEDURES Final Resu lt from Last 3 Months Insurance ANTH Care Teams Restaurant Greeter Relationship Specialty Start Date End Date Lexii Medel PA [address] [place] [address] [facility] - General 11/01/20
--- OUTSIDE RECORDS SUMMARY | 2025-03-10 20:35 | XMS_ITS | Encounter Summary ---
Author Organization Healthcare Address [address] [place] [address] Care Team Providers Care Clay Press Operator Name Role Phone Lexii Medel Primary Care Provider [phone] Reason for Referral * Consultation (Routine) - Closed Specialty Diagnoses / Procedures Referred By Kavin macias Referred To Contact Orthopaedic Surgery Diagnoses Right hip pain Amos Yates PA [address] [place] [address] Phone: tel: fax: Daren Haider MD [address] [facility] [address] [place] [address] Phone: tel: fax: Referral ID Status Reason Start Date Expiration Date Visits Re quested Visits Authorized [id number] Closed 12/25/2022 06/25/2024 1 1 Encounter Details Date Type Department Care Team (Late st Contact Info) Description 12/25/2022 [facility] [address] [place] [address] Amos Yates PA [address] [place] [address] Right hip pain (Primary Dx) [...] thigh documented in this encounter Care Teams Clay Press Operator Relationship Specialty Start Date End Date Lexii Medel PA [address] [place] [address] PCP - General 11/01/20 documented as of this encounter
--- OUTSIDE RECORDS SUMMARY | 2025-03-10 20:35 | XMS_ITS | Encounter Summary ---
Author Organization Healthcare Address [address] [place] [address] Care Team Providers Care Grain Drier Operator Name Role Phone Lexii Medel Primary Care Provider [phone] Encounter Details Date Type Department Care Team ([facility] st Contact Info) Description 09/07/2022 Orders Only External Location [address] [place] [address] Provider, External Social History Tobacco Use Types [...] on filedocumented in this encounter Care Teams Grain Drier Operator Relationship Specialty Start Date End Date Lexii Medel PA [address] [place] [address] PCP - General 11/01/20 documented as of this encounter
--- OUTSIDE RECORDS SUMMARY | 2025-03-10 20:35 | XMS_ITS | Encounter Summary ---
Author Organization Healthcare Address [address] [place] [address] Care Team Providers Care Water And Gas Helper Name Role Phone Lexii Medel Primary Care Provider Encounter Details Date Type Department Care Team ([facility] Contact Info) Description 01/23/2025 Orders Only External Location [address] [place] [address] Provider, External Social History Tobacco Use Types [...] Procedure Name Priority Date/Time Associated Diagnosis Comments POC ULTRASOUND 01/23/2025 documented in this encounter Results * POC Imaging (01/23/2025) Anatomical Region Laterality Modality Pelvis Other 01/23/2025 us External Provider IMG POINT OF CARE ULTRASOUND F inal Result documented in this encounter Visit Diagnoses Not on filedocumented in this encounter Additional Health Concerns Assessment Noted Time A fall risk assessment has been complete d for the patient 01/23/2025 3:47 PM EDT A Body Mass Index follow-up plan has been documented for the patient 02/02/2025 10:35 AM EDT documented as of this encounter Care Teams Water And Gas Helper Relationship Specialty Start Date End Date Lexii Medel PA [address] [place] [id number] PCP - General 11/01/20 documented as of this encounter
--- OUTSIDE RECORDS SUMMARY | 2025-03-10 20:35 | XMS_ITS | Encounter Summary ---
Author Organization Healthcare Address [address] [place] [address] Care Team Providers Care Weather Teacher Name Role Phone Lexii Medel Primary Care Provider [phone] Encounter Details Date Type Department Care Team (Latest Contact Info) Description 01/23/2025 Travel Social History Tobacco Use Types Packs/Day [...] on file documented as of this encounter Visit Diagnoses Not on filedocumented in this encounter Additional Health Concerns Assessment Noted Time A fall risk assessment has been complete d for the patient 01/23/2025 3:47 PM EDT A Body Mass Index follow-up plan has been documented for the patient 02/02/2025 10:35 AM EDT documented as of this encounter Care Teams Weather Teacher Relationship Specialty Start Date End Date Lexii Medel PA [address] [place] [address] PCP - General 11/01/20 documented as of this encounter
== END ==
PROVIDERS: PCP Family Medicine; Visit Provider Nurse Practitioner Acute Care
DX: G47.33 Obstructive sleep apnea (adult) (pediatric) (principal); G47.36 Sleep related hypoventilation in conditions classified elsewhere; F51.05 Insomnia due to other mental disorder; F34.1 Dysthymic disorder; F99 Mental disorder, not otherwise specified
CPT/HCPCS: 95810

== ENCOUNTER 2025-03-19 08:00 | Outpatient (RCR) | payer BC, SELFPAY | END 2025-03-19 23:59 | disposition home or self-care (01) | LOC: PT 08:00 | PROVIDERS: Visit Provider Orthopaedic Surgery | DX: S73.191A Other sprain of right hip, initial encounter (principal) | CPT/HCPCS: 97014; 97110; 97161; G0283 ==

== ENCOUNTER 2025-04-19 13:00 | Outpatient (RCR) | payer MEDICARE, BC, SELFPAY | END 2025-04-19 23:59 | disposition home or self-care (01) | LOC: PT 13:00 | PROVIDERS: Visit Provider Orthopaedic Surgery | DX: S73.191A Other sprain of right hip, initial encounter (principal) | CPT/HCPCS: 97014; 97110; 97140; 97530; G0283 ==

== ENCOUNTER 2025-05-01 10:52 | Outpatient (RCR) | payer MEDICARE, BC, SELFPAY | END 2025-05-01 23:59 | disposition home or self-care (01) | LOC: PT 10:52 | PROVIDERS: PCP Family Medicine; Visit Provider Orthopaedic Surgery | DX: S73.191D Other sprain of right hip, subsequent encounter (principal); X58.XXXD Exposure to other specified factors, subsequent encounter | CPT/HCPCS: 97014; 97110; G0283 ==

== ENCOUNTER 2025-05-02 08:18 | Outpatient (CLI) | payer MEDICARE, BC, SELFPAY ==
--- NOTE | 2025-05-02 08:21 | MR_ITS ---
FINAL REPORT CLINICAL HISTORY: TEAR OF RIGHT ACETABULAR LABRUM PRIOR HIP SURGERY X 2 MONTHS AGO PT STATED HIP IS STILL POPPING COMPARISON: 01/10/2025 FINDINGS: MR RIGHT HIP TECHNIQUE: Multiplanar MR without gadolinium enhancement. FINDINGS: ARTICULAR CARTILAGE: Rapid loss of articular cartilage compatible with advanced osteoarthritis. Flattening of the femoral head along the weightbearing surface may be due to subchondral collapse or bony remodeling. Findings are new since the prior exam. LABRUM: Diminutive anterior labrum, similar to the prior study may represent partial labral resection. New tear lateral labrum seen on coronal imaging. MARROW SIGNAL: Extensive marrow edema femoral head and neck and mildly in the acetabulum. Probably reactive and associated with osteoarthritic disease. JOINT FLUID: Large joint effusion without loose body. ADJACENT SOFT TISSUES: Worsening gluteus minimus tendinitis with new muscle edema of the gluteus minimus and quadratus femoris. IMPRESSION: Significant progression of osteoarthritic disease with large joint effusion. New tear lateral labrum. Flattening of the femoral head may represent subchondral collapse or bony remodeling. Reviewed, Interpreted and Dictated by Laron Red MD Transcribed by Ni Lopez Authenticated and [facility]
--- OUTSIDE RECORDS SUMMARY | 2025-05-02 08:21 | XMS_ITS | Encounter Summary ---
Author Organization [facility] Address [address] [place] [address] Care Team Providers Care Payable Representative Name Role Phone Lexii Medel Primary Care Provider [phone] Reason for Referral * Consultation (Routine) - Closed Specialty Diagnoses / Procedures Referred By Kavin macias Referred To Contact Orthopaedic Surgery Diagnoses Right hip pain Kaz Dwyer MD [address] [place] [address] Phone: tel: fax: Daren Haider MD [address] [facility] [address] [place] [address] Phone: tel: fax: Referral ID Status Reason Start Date Expiration Date V isits Requested Visits Authorized [id number] Closed Specialty Services Required 12/04/2024 06/05/2026 1 1 Encounter Details Date Type Department Care Team (Late st Contact Info) Description 12/04/2024 [facility] [address] [place] [address] Kaz Dwyer MD [address] [place] [address] Right hip pain (Primary Dx) [...] documented as of this encounter Care Teams Payable Representative Relationship Specialty Start Date End Date Lexii Medel PA [address] [place] [address] PCP - General 11/01/20 documented as of this encounter
--- OUTSIDE RECORDS SUMMARY | 2025-05-02 08:21 | XMS_ITS | Continuity of Care Document ---
Author Organization [facility], ORTHOPEDICS [address] [place] [address] Care Team Providers Care Retail Personal Banker Name Role Phone RUDY RICHARDS Primary Care Provider TANISHA SWAN Referring Provider [phone] Assessment Encounter Date Assessment Date Assessment LastModified by Organization Details LastModified Time 03/27/2025 03/27/2025 Assessment: Status 6 weeks post right hip labral repair on 02/15/2025. Very irritated hip flexor. Plan: Discussed the importance of gluteal activation to correct hip flexion spasticity. Demonstrated how to properly walk with cane for balance, not stability. Continue PT with focus on gluteal activation. No prolonged walking. Ordering medrol dose pack for inflammation. Ice and heat as needed, using barrier over top of the skin to avoid heat or cool injury to the skin. F/u in 6 weeks. [email or web address] Not available 03/27/2025 11:39:15 Plan of Treatment Reminders Order Date Submit Date Provider Last Modified By Organization Details Last Modified Time Details Appointments RECHECK 2024 09:45A Bruce MASON MD Not available Not available Not available DERM VISIT 2025 01:40P Bruce BEASLEY APRN Not available Not available Not available Lab None recorded. Referral None recorded. Procedures None recorded. Surgeries None recorded. Imaging None recorded. Medication Orders Medrol (Cayetano) 4 mg tablets in a dose pack 2024 025 [email or web address] carlos [facility], [address], [address], 03/27/2025 10:58:27 cyclobenz aprine 10 mg tablet 2024 [facility], [address], [address], 03/27/2025 10:58:27 Patient TargetsNo targets recorded. Patient InstructionsNo instructions recorded. Reason for Referral None Reported. Results Created Date Observation Date Name Description Value Unit Range Abnormal Flag Note LastModifiedBy Organization Detail LastModifiedTime 04/25/2004/18/2025 XR, pelvi s, 1 or 2 view [facility] [address] [place], [place] [id number] [phone] Patialessandro macias Name: MARCIN macias : [birth year] 75 Liliana macias 78 Orderi ng Provid er: KUNAL EGAN EXAM DATE: 2024 EXAM: XR PELVIS AP ONLY COMPAR PERLA: 025. HISTOR Y: Chroni c hip pain TECHNI QUE: AP views of the bilate ral hips/l ower pelvis . FINDIN GS: On the right, there is near bone-o n-bone articu lation superi debbie. There is bilate ral coxa profun da in acetab ular over covera ge. Left hip joint is mainta ined. No pubic diasta ses. No obviou s fractu re. IMPRES VARSHA: Modera te joint space loss of the right hip. This appear s to be new since prior exam. Interp reted By: Gerber Curry MD Electr onical ly Signed By: Gerber Curry MD on 7:26 AM [email or web address] [facility] [address] [place], [address], 04/25/2025 15:52:01 Result Notes None recorded. Problems Name Problem SNOMED Code Status Onset Date Resolution Date Notes Provider Name and Address Organization Details Recorded Time Essential tremor 328790884 Active MANNY HUGHES, DO [address] [place], [address], [facility] 13:31:13 Problem Notes None recorded. Procedures Surgical History Date Name Laterality Status Provider Name and Address Organization Details Recorded Time procedure on shoulder completed JARROD BOSS MD [address] [place] [address], [phone], [facility] 03/21/2024 14:24:39 partial hysterectomy completed JARROD BOSS MD [address] [place] [address], [phone], [facility] 03/21/2024 14:22:37 procedure on wrist completed JARROD BOSS MD [address] [place] [address], [phone], [facility] 03/21/2024 14:22:50 excision of lesion [place] [address] [place] [address], [phone], [facility] 03/21/2024 14:24:01 Imaging Results None recorded. Procedure Notes None recorded. Medical Equipment None Reported. Allergies Allergen ID Allergen Name Allergen Category Reaction Reaction Severity Criticality Documentation Date Start Date Code Code System Note Provider Name and Address Organization Details Recorded Time 821371 olanzapin e medicatio n swelling Not available Not available 03/21/2024 33371 RxNorm Kristy [facility] 13:51:59 Medications Name Sig Start Date Stop Date Status Note LastModified by Organization Details LastModified Time cyclobenza howard 10 mg tablet Take 1 tablet every 8 hours by oral route as needed, for muscle spasm/pa in. 2024 active Not Available Not Available Not Avai lable doxycyclin e hyclate 100 mg capsule Take 1 capsule twice a day by oral route for 7 days. 03/01 completed Not Available Not Available Not Available meloxicam 15 mg tablet Take 1 tablet every day by oral route for 14 days. 03/08 completed Not Available Not Available Not Available Medrol (Cayetano) 4 mg tablets in a dose pack Take 1 dose pk by oral route. 2024 active Not Available Not Available Not Avai lable propranolo l ER 60 mg capsule,24 hr,extende [...] completed Not Available Not Available Not Available tramadol 50 mg tablet Take 1 tablet every 6 hours by oral route as needed. 2024 active Not Available Not Available Not Avai lable Kenalog 40 mg/mL suspension for injection 40 MG 08/01 completed Not Available Not Available Not Available methotrexa te sodium 2.5 mg tablet Take 6 tablets every week by oral route. 05/16 completed Not Available Not Available Not Available propranolo l ER 80 mg capsule,24 hr,extende d release Take 1 capsule every day by oral route for 90 days 2024 active Not Available Not Available Not [...] Not Available Not Available Not Avai lable ondansetro n 4 mg disintegra ting tablet Place 1 tablet every 8 hours by translin gual route as needed, for nausea. 2024 active Not Available Not Available Not Avai lable oxycodone 5 mg tablet Take 1 tablet every 4 hours by oral route as needed, for pain. 2024 active Not Available Not Available Not [...] active Not Available Not Available Not Available desvenlafa xine ER 50 mg tablet,ext ended release 24 hr Take 1 tablet every day by oral route. active Not Available Not Available No t Available Estroven active Not Available Not Avai [...] pen injector Inject 1 pen subcutan eously in abdomen every 12 weeks for treatmen t of psoriasi s 2024 active Not Available Not Available Not Avai lable Veozah active Not Available Not Availa ble Not Available Vitals Date Recorded Body height Body mass index (BMI) Body weight Provider Name and Address Organization Details Last Updated DateTime 03/27/2025 162.56 cm 29.5 kg/m2 52054.89 g Tyesha Thien [facility] 03/27/2025 10:28:04 Social History Question Answer Notes LastModified by Organizat ion Details LastModified Time Tobacco Smoking Status Current Every Day Smoker Kristy drummond [facility] 03/21/2024 13:56:45 What Is Your Level Of Caffeine Consumption? None [email or web address] Information not available 10/23/2024 What Was The Date Of Your Most Recent Tobacco Screening? 04/19/2024 [email or web address] Information not available 04/19/2024 What Is Your Relationship Status? [email or web address] Information not available 10/23/2024 How Much Tobacco Do You Smoke? 1 PPD hrick Information not available 03/21/2024 Sex: Female Functional Status Question Answer Note LastModified by Organizat ion Details LastModified Time Do you use any illicit or recreational drugs? No [email or web address] Information not available 10/23/2024 What is your level of alcohol consumption? None [email or web address] Information not available 10/23/2024 Are you currently employed? No [email or web address] Information not available 10/23/2024 Mental Status None recorded. Family History Relationship Description Onset Age of this Age Resolved Age Notes LastModified by Organization Details LastModified Time Unspecified Relation Psoriasis variou s family member s with psoria sis; childr en, aunts, uncles , grandp arents Not available 03/21/2024 14:25:02 Father Malignant neoplastic disease Colon cancer , lung cancer [email or web address] Not available 10/23/2024 13:10:16 Mother Alcoholism [email or web address] Not availa ble 10/23/2024 13:10:08 Mother Heart disease [email or web address] Not available 2024 13:10:42 Mother Mental health problem [email or web address] Not available 2024 13:11:17 Mother Cerebrovascu lar accident [email or web address] Not available 10/2024 13:11:25 Sister Alcoholism [email or web address] Not availa ble 10/23/2024 13:10:08 Sister Heart disease [email or web address] Not available 2024 13:10:42 Sister Diabetes mellitus [email or web address] Not available 2024 13:11:02 Sister Mental health problem [email or web address] Not available 2024 13:11:17 Brother Heart disease Not available 2024 13:10:42 Brother Diabetes mellitus [email or web address] Not available 2024 13:11:02 Brother Mental health problem [email or web address] Not available 2024 13:11:17 Paternal Grandfather Diabetes mellitus [email or web address] Not available 2024 13:11:02 Medical History Condition Response Anxiety Disorder Y Arthritis Y Migraines Y Hypertension Y Depression Y Gynecological HistoryNo gynecological history recorded. Obstetrics History GPAL:G 0 P 0 0 0 0 Past Encounters Encounter ID Performer Location Encounter Start Date Encounter Closed Date Diagnosis/Indication Diagnosis SNOMED-CT Code Diagnosis ICD10 Code Diagnosis IMO Codes Diagnosis Note [id number] KUNAL EGAN PA-C [facility] [address] [place] [address] 02/27/2025 12:51:08 02/28/2025 05:06:30 Postoperative visit 394345134 Z48.89 [id number] Assessment : Status 2 weeks post right hip labral repair on 02/15/2025. Plan: Continue partial weightbear ing. Advance weightbear ing per protocol guidelines . May get the incision site(s) wet, no scrubbing, dab to dry. Vitamin E lotion or oil as needed for scar healing. Ice and heat as needed, using barrier over top of the skin to avoid heat or cool injury to the skin. She may discontinu e the hip abduction pillow. Work with physical therapy, temoin g per protocol guidelines . Follow-up in 4 weeks [address] recheck with Dr. Mason. [id number] MANNY BEASLEY APRN [facility] [address] [place] [address] 03/02/2025 13:16:57 03/02/2025 13:42:55 Psoriasis 6406168 L40.9 chronicsin ce early child hoodClear - stable on Skyrizi Headaches stable per patient - had prior to starting SkyriziTre mors and muscle weakness in legs - Neurology following - on propranolo l ERInitial BSA > 10% now 0%Patient has tried and failed OTC topicals, clobetasol solution, betamethas one cream, oral steroids, and Methotrexa te.Has + joint pain shoulder, hips, knees, ankles, feet and hands - worse in morning and after any periods of inactivity ; currently treating with sulfasalaz ine and meloxicam from Rheumatolo gy- has noted slight improvemen t in hip and lower extremity joint pain since starting Skyrizi but still feels that it is significan t - will reconsult with Rheum for opinion on Otezla as adjunct therapy Recommend: Continue current skin care routine of Dove body wash and CeraVe SA or Amlactin for chronic dry skin areas.Cont inue Skyrizi 150mg/mL Sub Q injections every 12 weeks - next injection is Due Apr 21.Will re GONZALO Gomez check labs today - QTB, CMP - patient will have drawn at [facility]- printed and given to Feliz marcelino send rheumatolo gy referral and set up appt today to discuss possibly starting Otezla for joint painNote sent to Dr. Thom shane social distancing during flu and covid season as patient defers any vaccines. Follow up in 1 year to recheck [id number] ESTEVAN MASON MD ORTHOPEDI [address] [place] [address] 03/27/2025 10:18:40 03/27/2025 10:46:09 Postoperative visit [id number] Z48.89 [id number] Health Concerns Section Related Observation LastModified by Organization Detai ls LastModified Time None Recorded Concern Status LastModified by Organization Details LastModified Time None Recorded Payers Encounter Date Sequence Insurance Name Policy Number Policy Ortez Covered Member ID Ortez Member ID Guarantor Name 03/27/2025 2 [facility] (PP[facility] [id number] Robles Mcneill [id number] Marcin Mcneill Notes Date Note Type Note Provider Name and Address Organization Details Recorded Time 03/27/2025 text/html ROS as noted in the HPI Patient comes in today for FU Right Hip.Patient states they are worse than last visit.Patient reports new injury since last visit, twisted hip cleaning.Pain is constant sharp pain in nature, throbbing at times.The patient does not have numbness or tinglingThey have popping and clickingThey are not able to sleep comfortably with this injury.Their pain is made better with resting the limbTheir pain is exacerbated by putting weight on and moving the affected limbOverall, the patient would say that their pain is not well-controlled at this time.-[id number] hip labral repair ESTEVAN MASON MD [address] [place], [address], [facility] 03/27/2025 11:39:25 OBGyn Episode No OBEpisode recorded.
--- OUTSIDE RECORDS SUMMARY | 2025-05-02 08:21 | XMS_ITS | Encounter Summary ---
Author Organization Healthcare Address [address] [place] [address] Care Team Providers Care Mental Health Case Manager Name Role Phone Lexii Medel Primary Care Provider [phone] Encounter Details Date Type Department Care Team ([facility] st Contact Info) Description 09/07/2022 Orders Only External Location [address] [place] [address] Provider, External Social History Tobacco Use Types [...] on filedocumented in this encounter Care Teams Mental Health Case Manager Relationship Specialty Start Date End Date Lexii Medel PA [address] [place] [address] PCP - General 11/01/20 documented as of this encounter
--- OUTSIDE RECORDS SUMMARY | 2025-05-02 08:21 | XMS_ITS | Encounter Summary ---
Author Organization Healthcare Address [address] [place] [address] Care Team Providers Care Station Inspector Name Role Phone Lexii Medel Primary Care Provider [phone] Encounter Details Date Type Department Care Team ([facility] st Contact Info) Description 01/10/2025 Orders Only External Location [address] [place] [address] Amos Yates, [place] [address] Social History Tobacco Use Types Packs/Day Years [...] documented as of this encounter Care Teams Station Inspector Relationship Specialty Start Date End Date Lexii Medel PA [address] [place] [address] PCP - General 11/01/20 documented as of this encounter
--- OUTSIDE RECORDS SUMMARY | 2025-05-02 08:21 | XMS_ITS | Encounter Summary ---
Author Organization Healthcare Address [address] [place] [address] Care Team Providers Care Manufacturing Engineer Assembly Name Role Phone Lexii Medel Primary Care Provider [phone] Encounter Details Date Type Department Care Team ([facility] st Contact Info) Description 01/10/2025 Orders Only External Location [address] [place] [address] Amos Yates, [place] [address] Social History Tobacco Use Types Packs/Day Years [...] documented as of this encounter Care Teams Manufacturing Engineer Assembly Relationship Specialty Start Date End Date Lexii Medel PA [address] [place] [address] PCP - General 11/01/20 documented as of this encounter
--- OUTSIDE RECORDS SUMMARY | 2025-05-02 08:21 | XMS_ITS | Clinical Summary ---
Author Organization Healthcare Address [address] [place] [address] Care Team Providers Care Proposal Consultant Name Role Phone Lexii Medel Primary Care Provider [phone] Allergies No known active allergies Medications atorvastatin (Lipitor) 10 MG tablet 12/29/19 23 Active azithromycin (Zithromax) 250 MG tablet 04/28/20 22 Active benzonatate (Tessalon) 100 MG capsule 04/28/20 22 Active GNP Vitamin D3 Extra Strength 25 MCG (1000 UT) tablet 01/08/20 23 Active ergocalciferol 1.25 MG (02498 UT) capsule 12/30/19 23 Active loratadine (Claritin) [...] months for maintenance dosing 11/23/19 25 Active Social History Tobacco Use Types Packs/Day Years [...] [facility]-HIV Screening 1972 [facility]-Hepatitis C Screening 1972 [facility]-Infant/Child/Adol SDOH Screenings 1972 [id number] Vaccine (#1) 1977 [facility]- SDOH Screenings 1990 [...] on patient's age to complete this topic Insurance ANTHEM Care Teams Proposal Consultant Relationship Specialty Start Date End Date Lexii Medel PA [address] [place] [address] PCP - General 11/01/20
--- OUTSIDE RECORDS SUMMARY | 2025-05-02 08:21 | XMS_ITS | Encounter Summary ---
Author Organization Healthcare Address [address] [place] [address] Care Team Providers Care Vice President Of Business Development Name Role Phone Lexii Medel Primary Care Provider [phone] Encounter Details Date Type Department Care Team ([facility] st Contact Info) Description 09/07/2022 Orders Only External Location [address] [place] [address] Provider, External Social History Tobacco Use Types [...] on filedocumented in this encounter Care Teams Vice President Of Business Development Relationship Specialty Start Date End Date Lexii Medel PA [address] [place] [address] PCP - General 11/01/20 documented as of this encounter
--- OUTSIDE RECORDS SUMMARY | 2025-05-02 08:21 | XMS_ITS | Encounter Summary ---
Author Organization Healthcare Address [address] [place] [address] Care Team Providers Care Gristmill Operator Name Role Phone Lexii Medel Primary Care Provider [phone] Encounter Details Date Type Department Care Team ([facility] st Contact Info) Description 11/10/2022 Orders Only External Location [address] [place] [address] Kaz Dwyer MD [address] [place] [address] Social History Tobacco Use Types Packs/Day Years [...] on filedocumented in this encounter Care Teams Gristmill Operator Relationship Specialty Start Date End Date Lexii Medel PA [address] [place] [address] PCP - General 11/01/20 documented as of this encounter
--- OUTSIDE RECORDS SUMMARY | 2025-05-02 08:21 | XMS_ITS | Data Portability ---
Author Organization LEANN KINSEY PickettS SARTELL CLOSED Address [address] [place] [address] Care Team Providers Care Physician General Practice Name Role Phone RUDY RICHARDS Primary Care Provider TANISHA SWAN Referring Provider [phone] Assessment Encounter Date Assessment Date Assessment LastModified by Organization Details LastModified Time 02/15/2025 02/15/2025 Date of Surgery: 02/15/2025 Surgeon: Simin Mason M.D. Learning Design Specialist: Rajan Andrew C.S.A. The rn first assistant was necessary for positioning, draping, retraction, drilling while I held the guide, and wound closure. The public services assistant allowed the procedure be completed in a safe and efficient manner. Preoperative Diagnosis: Right hip labral tear Postoperative Diagnoses: 1. Right hip labral tear from 12:00 to 3:00 2. Right synovitis Procedures: 1. Right hip arthroscopic labral repair with 3 anchors 2. Right hip arthroscopic synovectomy Anesthesia: General Antibiotics: Ancef 2 g Implants: Brinson Iconix anchor x3 (2 explanted) Specimens: None Complications: None Fluids: 1 L Estimated Blood Loss: 20 ml Traction Time: 50 minutes on postless bed Indications for Procedure: Mrs. Jon is a 54 year-old female with right hip pain that localized to the groin. Imaging showed good geometry and a labral tear. The patient had significant pain and tried multiple conservative options including physical therapy and anti-inflammatori es without lasting relief. Given her ongoing limitations, surgery was discussed. A thorough discussion of the risks, benefits, and alternatives of the procedure as well as the expected postoperative course and rehabilitation was performed and he elected to proceed. Informed consent was obtained. Description of Procedure: The patient was met in the preoperative holding area, operative extremity marked, and all questions were answered. The anesthesia pain service performed a peripheral nerve block. The patient was brought back to the operating room and induced under general anesthesia without complication. The patient was appropriately positioned with all bony prominences confirmed to be well-padded. The operative extremity was prepped and draped in usual sterile orthopedic fashion. A surgical timeout was performed confirming correct patient, site, and procedure. First we began by establishing a standard anterolateral arthroscopic portal under fluoroscopic guidance. The skin was incised with an 11 blade just anterior and distal to the tip of the greater trochanter. A spinal needle was advanced into the joint. Nitinol wire was then passed through the spinal needle and a 4.5 mm cannula was passed over the guidewire into the hip joint. The arthroscope was placed into the joint using the anterior lateral portal. Next, the mid anterior portal was created using a spinal needle to triangulate. Nitinol wire was passed in the cannula was then passed over the guidewire into the joint. The arthroscope was then introduced this portal to visualize the entry point of the anterolateral portal confirmed that it was not through the labrum. A parallel capsulotomy was performed with a [place] blade approximately 1 cm distal to the labrum connecting the mid anterior and anterolateral arthroscopic portals Operative Findings: There was a labral tear from 12 to 3 o'clock positions. There was no major pincer or cam deformity. There was grade 2 chondromalacia in an area of 3 x 12 mm in the acetabulum but minimal over the head of the femur. There was severe synovitis. Synovectomy: The capsule was very inflamed. Electrocautery was used to lightly debride the synovitis on the acetabular side of the capsule. The shaver was used to debride the synovitis on the neck side. This was debrided from approximately 11-4 o'clock as it was adjacent to the labral tear. Labral repair: A 3 anchor labral repair was performed from the 12 to 3:00 positions. An Iconix suture anchor was placed at the 3 o'clock position. This was placed in loop fashion through the labrum and secured in knotless fashion. An additional suture anchor was placed in loop fashion around the labrum 1:30 and 12 o'clock positions.. They were secured in knotless fashion. There was anatomic reduction of the labrum to the acetabulum without significant eversion or inversion. Traction was let down and under dynamic examination the labrum appeared stable without motion. Capsular closure: We turned our attention to the capsular closure. The central and peripheral compartments were copiously lavaged with arthroscopic fluid. The capsule was closed with 2 FiberWire sutures. Each was passed through the capsular leaflets in simple fashion with a suture passer and each were secured with half hitch knots. Closure: The wounds were irrigated. The portals were closed with 3-0 nylon suture. A sterile dressing was applied. The feet were taken out of traction boots and a hip abduction pillow was placed between the feet. The patient was awoken from anesthesia without complication and taken to the PACU in stable condition. There were no apparent complications and all sponge and needle counts were correct at the conclusion of the case. Post-Op Plan: The patient will be partial weightbearing on the right lower extremity for 2 weeks. Sleep in an abduction pillow. Follow-up in 2 weeks. [email or web address] Not available 02/15/2025 16:48:12 03/02/2025 03/02/2025 Follow up in 1 year [email or web address] Not available 03/02/2025 13:40:23 03/27/2025 03/27/2025 Assessment: Status 6 weeks post [...] Not available DERM VISIT 2025 01:40P Bruce MAURO MOBILE DEVELOPMENT MANAGER Not available Not available Not available Lab CMP, serum or plasma - patient preferred lab is [facility]; please fax results to [facility] Dermatolo gy 2024 025 [email or web address] 3 [facility], [address] [place], [address], 04/27/2025 15:09:32 Mycobacte rium tuberculo sis stimulate d gamma interfero n, qual, blood - patient preferred lab is [facility]; please fax results to [facility] Dermatolo gy 2024 025 [email or web address] 3 [facility], [address] [place], [address], 04/27/2025 15:09:32 Referral rheumatol ogist referral 2024 025 [email or web address] 73 Jarrod Whitaker MD, [address] [place], [address], 03/02/2025 14:53:17 Procedures None recorded. Surgeries None recorded. Imaging MRI, hip, w/o contrast 2024 025 [email or web address] 27 [facility] (X-Ray), [address], [place], [address], 04/19/2025 12:08:46 XR, pelvis, 1 or 2 view 2024 [facility] [address] [place], [address], 04/25/2025 07:31:14 Medication Orders Medrol (Cayetano) 4 mg tablets in a dose pack 2024 025 [facility], [address] [place], [address], 03/27/2025 10:58:27 cyclobenz aprine 10 mg tablet 2024 025 [facility], [address] [place], [address], 03/27/2025 10:58:27 Skyrizi 150 mg/mL subcutane ous pen injector 2024 025 [facility], [facility] [address] [place] [address], [facility] [address], [place], [place], [id number], 03/02/2025 13:39:48 cyclobenz aprine 10 mg tablet 2024 025 [facility], [address] [place] [address] S, LEANN Cristobal, [id number], 02/15/2025 12:07:51 oxycodone 5 mg tablet 2024 025 [facility], [address] [place] [address] S, LEANN Cristobal, [id number], 02/15/2025 12:07:51 ondansetr on 4 mg disintegr ating tablet 2024 025 [facility], [address] [place] [address] S, LEANN Cristobal, [id number], 02/15/2025 12:07:50 doxycycli ne hyclate 100 mg capsule 2024 025 [facility], [address] [place] [address] S, LEANN Cristobal, [id number], 03/01/2025 05:02:16 meloxicam 15 mg tablet 2024 025 [facility], [address] [place] [address] S, LEANN Cristobal, [id number], 03/08/2025 05:02:43 Patient Targets Encounter Date Encounter Id Patient Goals Patient Target Last Modified By Organization Details Last Modified Time 02/27/2025 [id number] Continue partial weightbearing. Advance weightbearing per protocol guidelines. May get the incision site(s) wet, no scrubbing, dab to dry. Vitamin E lotion or oil as needed for scar healing. Ice and heat as needed, using barrier over top of the skin to avoid heat or cool injury to the skin. She may discontinue the hip abduction pillow. Work with physical therapy, progressing per protocol guidelines. Follow-up in 4 weeks for recheck with Dr. Mason. [email or web address] Not available 02/27/2025 14:17:34 Patient Instructions Encounter Date Encounter Id Patient Instructions Last Modified By Organization Details Last Modified Time 03/02/2025 [id number] Education: We discussed the potential diagnostic options, options for further evaluation and treatments, and the risks and benefits of each. 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 HISTOR Y: Right hip pain. FINDIN GS: No fractu re is identi fied. There are mild degene rative change s in the right hip. There is minima l to mild medial joint space loss. There is mild margin al spurri ng. Limite d visual izatio n of the contra latera l hip demons trates mild degene rative change . IMPRES VARSHA: 1. There are mild degene rative change s in the right hip. Interp reted By: Vikki marshall MD Electr onical ly Signed By: Vikki marshall MD on 8/11/2 025 4:56 PM [email or web address] [facility] [address] [place], [address], 02/07/2025 09:51:27 02/02/2001/10/2025 MRI, hip, w/o contr ast No observ ation record ed. [email or web address] Not Available 15:02:58 04/25/20 25 04/18/2025 XR, pelvi s, 1 or 2 view [facility] [address] [place] [address] [phone] Patialessandro t Name: MARCIN macias : [birth year] Liliana macias 78 Orderi ng [facility] er: KUNAL EGAN EXAM DATE: 2024 EXAM: XR PELVIS AP ONLY COMPAR PERLA: . HISTOR Y: Chroni c hip pain TECHNI [...] Gerber Curry MD on 7:26 AM [email or web address] [facility] [address] [place], [address], 04/25/2025 15:52:01 Result Notes Documentation Provider Name and Address Organization Details Recorded Time Xr, Pelvis, 1 Or 2 View : [facility] [address] [place] [address] Patient Name: MARCIN JON Patient : 1970 Patient Ordering Provider: KUNAL EGAN EXAM DATE: 04/18/2025 EXAM: XR PELVIS AP ONLY COMPARISON: 01/29/2025. HISTORY: Chronic hip pain TECHNIQUE: AP views of the bilateral hips/lower pelvis. FINDINGS: On the right, there is near ngwx-go-bahi articulation superiorly. There is bilateral coxa profunda in acetabular over coverage. Left hip joint is maintained. No pubic diastases. No obvious fracture. IMPRESSION: Moderate joint space loss of the right hip. This appears to be new since prior exam. Interpreted By: Gerber Curry MD L EGAN PA-C [address] [place] [address], [address] [place] [address], [facility] 04/25/2025 15:52:01 Problems Name Problem SNOMED Code Status Onset Date Resolution Date Notes Provider Name and Address Organization Details Recorded Time Essential tremor 670960295 Active 025 MANNY HUGHES DO [address] [place] [address], [address] [place] [address], [facility] 13:31:13 Problem Notes None recorded. Procedures Surgical History Date Name Laterality Status Provider Name and Address Organization Details Recorded Time procedure on shoulder completed JARROD WHITAKER MD [address] [place] [address], [address] [place] [address], [facility] 03/21/2024 14:24:39 partial [place] [address] [place] [address], [address] [place] [address], [facility] 03/21/2024 14:22:37 procedure [place] [address] [place] [address], [phone], [facility] 03/21/2024 14:22:50 excision of lesion of joint [place] [address] [place] [address], [address], [facility] 03/21/2024 14:24:01 Imaging Results None recorded. Procedure Notes None recorded. Medical Equipment None Reported. Allergies Allergen ID Allergen Name Allergen Category Reaction Reaction Severity Criticality Documentation Date Start Date Code Code System Note Provider Name and Address Organization Details Recorded Time 272003 olanzapin e medicatio n swelling Not available Not available 03/21/2024 08381 RxNorm Kristy Dixon [facility] 13:51:59 Medications Name Sig Start Date Stop [...] 2024 active Not Available Not Available Not Tusharai lable Kenalog 40 mg/mL suspension for injection [...] active Not Available Not Available Not Avai juan pablo Bailey active Not Available Not Availa ble Not Available Vitals Date Recorded Body height Body mass index (BMI) Body weight Pain severity - 0-10 verbal numeric rating [Score] - Reported Provider Name and Address Organization Details Last Updated DateTime 02/27/2025 162.56 cm 30.6 kg/m2 55119.44 g 5 Michelle Hoffmanter [facility] 02/27/2025 13:15:49 Date Recorded Body height Body mass index (BMI) Body weight Provider Name and Address Organization Details Last Updated DateTime 03/27/2025 162.56 cm 29.5 kg/m2 86202.89 g [facility] 03/27/[facility] 10:28:04 Date Recorded Body height Body mass index (BMI) Body weight Provider Name and Address Organization Details Last Updated DateTime 04/18/2025 162.56 cm 29.5 kg/m2 58663.89 g Tyesha Neumann [facility] 04/18/2025 11:18:57 Social History Question Answer Notes LastModified by Organizat ion Details LastModified Time Tobacco Smoking Status Current Every Day Smoker Kristy Dixon [facility] 03/21/2024 13:56:45 What Is Your Level Of Caffeine Consumption? None [email or web address] Information not available 10/23/2024 What Was The Date Of Your Most Recent Tobacco Screening? 04/19/2024 [email or web address] Information not available 04/19/2024 What Is Your Relationship Status? [email or web address] Information not available 10/23/2024 How Much Tobacco Do You Smoke? 1 PPD hrick Information not available 03/21/2024 Sex: Female Functional Status Question Answer Note LastModified by Organizat ion Details LastModified Time Do you use any illicit or recreational drugs? No [email or web address] Information not available 10/23/2024 What is your level of alcohol consumption? None [email or web address] Information not available 10/23/2024 Are you currently employed? No [email or web address] Information not available 10/23/2024 Mental Status None recorded. Family History Relationship Description Onset Age of this Age Resolved Age Notes LastModified by Organization Details LastModified Time Unspecified Relation Psoriasis variou s family member s with psoria sis; childr en, aunts, uncles , grandp arents Not available 03/21/2024 14:25:02 Father Malignant neoplastic disease Colon cancer , lung cancer [email or web address] Not available 10/23/2024 13:10:16 Mother Alcoholism [email or web address] Not availa ble 10/23/2024 13:10:08 Mother Heart disease [email or web address] Not available 2024 13:10:42 Mother Mental health problem Not available 2024 13:11:17 Mother Cerebrovascu lar accident [email or web address] Not available 10/2024 13:11:25 Sister Alcoholism [email or web address] Not availa ble 10/23/2024 13:10:08 Sister Heart disease [email or web address] Not available 2024 13:10:42 Sister Diabetes mellitus Not available 2024 13:11:02 Sister Mental health problem [email or web address] Not available 2024 13:11:17 Brother Heart disease [email or web address] Not available 2024 13:10:42 Brother Diabetes mellitus [email or web address] Not available 2024 13:11:02 Brother Mental health problem [email or web address] Not available 2024 13:11:17 Paternal Grandfather Diabetes mellitus [email or web address] Not available 2024 13:11:02 Medical History Condition Response Anxiety Disorder Y Arthritis Y Migraines Y Hypertension Y Depression Y Gynecological HistoryNo gynecological history recorded. Obstetrics History GPAL:G 0 P 0 0 0 0 Past Encounters Encounter ID Performer Location Encounter Start Date Encounter Closed Date Diagnosis/Indication Diagnosis SNOMED-CT Code Diagnosis ICD10 Code Diagnosis IMO Codes Diagnosis Note [id number] JARROD WHITAKER MD [facility]ATOL [facility] [place] [address] [place] [address] 03/21/2024 13:36:54 03/22/2024 04:23:12 Psoriatic arthritis 949486533 L40.50 Long-term drug therapy 772495705 Z79.891 [id number] JARROD WHITAKER MD RHEUMATOL [address] [place] [address] 04/19/2024 14:21:47 04/20/2024 04:59:45 Psoriatic arthritis 630952850 L40.50 Long-term drug therapy 810364249 Z79.891 [id number] MANNY MAURO APRN [facility]ERMATOLO [facility] [address] [place] [address] 05/16/2024 07:59:27 05/16/2024 09:17:08 Psoriasis 2628909 L40.9 chronicsin ce early child hoodModera te [...] sks/benefi ts and possible side effects of group home topical steroids reviewed. Continue current skin care [...] understand ing. Follow up pending [place] approval [id number] MANNY MAURO APRN DERMATVIVEK [facility] [address] [place] [address] 05/30/2024 13:11:56 05/30/2024 14:31:47 Psoriasis 0077572 L40.9 chronicsin ce early child hoodModera te [...] Gave patient a sample injection of skyriziNDC [id number] 70Lot number [id number] 07/2025 Patient has been contacted by manufactur er for shipment of medication to her home. She understand s to administer second injection of loading dose on 06/30/2024. Follow up in 3 months to recheck [id number] MANNY MAURO APRN DERMATVIVEK [facility] [address] [place] [address] 08/11/2024 11:58:19 08/11/2024 12:50:47 Psoriasis 4960395 L40.9 chronicsin ce early child hoodEssent ially [...] CMP - patient will have drawn at [facility] Encouraged social distancing during flu and covid season as patient defers any vaccines. Follow up in Feb for recheck [id number] MANNY HUGHES DO NEUROLOGY [address] [place], [place] [address] 10/23/2024 12:56:37 10/25/2024 06:39:18 Essential tremor 595795753 G25.0 30291 Chronic condition that is gradually progressin g. [...] signs of PD on her exam today. [id number] ESTEVAN MASON MD ORTHOPEDI [facility] [address] [place] [address] 01/29/2025 15:46:20 01/29/2025 16:44:18 Acetabular labrum tear 318960273 S73.191A 31996843 [id number] ESTEVAN MASON MD SURGERY SCHEDULE [address] [place] [address] 02/15/2025 11:15:21 02/15/2025 11:15:59 Postoperative care 716873617 Z48.89 [id number] KUNAL EGAN PA-C ORTHOPEDI [facility] [address] [place] [address] 02/27/2025 12:51:08 02/28/2025 05:06:30 Postoperative visit 544968708 Z48.89 [id number] Assessment : Status 2 weeks post right [...] hip abduction pillow. Work with physical therapy, elia vigil per protocol guidelines . Follow-up in 4 weeks for recheck with Dr. Mason. [id number] MANNY MAURO APRN [facility]ERMATOLO [facility] [address] [place] [address] 03/02/2025 13:16:57 03/02/2025 13:42:55 Psoriasis 4003368 L40.9 chronicsin ce early child hoodClear - [...] CMP - patient will have drawn at [facility]- printed and given to patientSridhar l send rheumatolo gy referral and set up appt today to discuss possibly starting Otezla for joint painNote sent to Dr. Thom shane social distancing during flu and covid season as patient defers any vaccines. Follow up in 1 year to recheck [id number] ESTEVAN MASON MD ORTHOPEDI CS [address] [place] [address] 03/27/2025 10:18:40 03/27/2025 10:46:09 Postoperative visit 098385218 Z48.89 [id number] KUNAL EGAN PA-C ORTHOPEDI CS [address] [place] [address] 04/18/2025 11:14:47 04/18/2025 12:07:17 Postoperative visit 164465504 Z48.89 [id number] Assessment : Status just over 8 weeks post right hip labral repair on 02/15/2025. Plan: We discussed continued management at therapy versus additional imaging. Due to her significan t pain, a repeat MRI is reasonable in order to rule out compromise of the previous right hip labral repair. I will call her with results. I would like her to keep her regular scheduled follow-up with Dr. Mason on the of next month. Acetabular labrum tear 393673343 S73.191D [id number] Health Concerns Section Related Observation LastModified by Organization Detai ls LastModified Time None Recorded Concern Status LastModified by Organization Details LastModified Time None Recorded Advance Directives Directive None Recorded Payers Insurance Date Sequence Insurance Name Policy Number Policy Ortez Covered Member ID Ortez Member ID Guarantor Name 05/01/2025 2 [place] [id number] Robles Jon [id number] Marcin Jon 02/27/2025 2 [employer]AC[place] - [place]MO) Marcin Jon [id number] Marcin Jon 02/27/2025 2 [employer] [facility] (MEDICAID REPLACEMENT - HMO) Marcin Jon [id number] Marcin Jon 01/23/2025 2 [place] [id number] Marcin Jon [id number] Marcin Jon 04/23/2025 1 [place] Marcin Jon [id number] Marcin Candelariaselenedavid Notes Date Note Type Note Provider Name and Address Organization Details Recorded Time 02/27/2025 text/html Patient comes in today for FU Right Hip.Surgery Date:02/15/2025SX:r ight hip labral repair Patient reports pain has been tolerable since sx.Patient reports no new concerns.Overall, the patient would say that their pain is well-controlled at this time. KUNAL EGAN PA-C [address] [place], [address], [facility] 02/27/2025 14:17:57 03/02/2025 text/html ROS as noted in the HPI Established patient Patient presents to the clinic today for AMALIA of psoriasis - treating with Skyrizi. Patient states still having the joint pain but not as bad, still there .Gets a UTI with every injectionlast injection was January 19 - next due Apr 21 MANNY MAURO, YUDITH [address] [place], [address], [facility] 03/02/2025 17:15:18 03/27/2025 text/html ROS as noted in the [...] pain is not well-controlled at this time.-asc-lc 30, [id number] hip labral repair ESTEVAN MASON MD [address] [place], [address], [facility] 03/27/2025 11:39:25 04/18/2025 text/html ROS as noted in the HPI Patient comes in today for FU Right Hip.Patient states they are worse than last visit.Patient reports new injury since last visit, twisted hip cleaning.Pain is intermittent sharp pain in nature, throbbing at times.The patient does not have numbness or tinglingThey have popping and clickingThey are not able to sleep comfortably with this injury, not on right side. DOS: [id number]: right hip labral repair-PT 2x/wk 1 month, [facility]-PCP lortab 7.5 for pain KUNAL EGAN PA-C [address] [place], [address], [facility] 04/18/2025 13:47:52 OBGyn Episode No OBEpisode recorded.
--- OUTSIDE RECORDS SUMMARY | 2025-05-02 08:21 | XMS_ITS | Clinical Summary ---
Author Organization [facility] Address [address] [place] [address] Care Team Providers Care Aerodynamic Consultant Name Role Phone Du Main MD Primary Care Provider [phone] Allergies Active Allergy Reactions Criticality Noted Date [...] 01/07/2023 Active vitamin D (ERGOCALCIFEROL) 1.25 MG (97852 UT) capsule capsule Take 1 capsule by [...] ANNUAL PHYSICAL 03/04/2023 HEPATITIS C SCREENING 03/04/2023 INFLUENZA VACCINE 01/19/2025 COLONOSCOPY 04/09/2032 04/09/2022, 04/02/2022 COLORECTAL CANCER SCREENING 04/09/2032 Procedures Procedure Name Priority Date/Time Associated Diagnosis Comments SCANNED - COLONOSCOPY 04/02/2022 from Last 3 Months or Most Recently Relevant to Health Maintenance Results * SCANNED - COLONOSCOPY (04/02/2022) Qi Valenzuela PA-C CHART REVIEW TABS Pablito al Result from Last 3 Months or Most Recently Relevant to Health Maintenance Insurance [address] [place] [address] PPO Care Teams Aerodynamic Consultant Relationship Specialty Start Date End Date Du Main MD [address] [place] [address] PCP - General Family Medicine 05/25/23
--- OUTSIDE RECORDS SUMMARY | 2025-05-02 08:21 | XMS_ITS | Continuity of Care Document ---
Author Organization [facility], ORTHOPED[facility] [address] [place] [address] Care Team Providers Care Contract Forester Name Role Phone RUDY RICHARDS Primary Care Provider [phone] TANISHA SWAN Referring Provider Assessment No assessment recorded. Plan of Treatment Reminders Order Date Submit Date Provider Last Modified By Organization Details Last Modified Time Details Appointments RECHECK 2024 09:45A Bruce MASON MD Not available Not available Not available DERM VISIT 2025 01:40P Bruce BEASLEY [facility] Not available Not available Not available Lab None recorded. Referral None recorded. Procedures None recorded. Surgeries None recorded. Imaging MRI, hip, w/o contrast 2024 025 [email or web address] (X-Ray), [address] [place] [address] [address] [place], [address], 04/19/2025 12:08:46 XR, pelvis, 1 or 2 view 2024 025 [facility] [address], [address] [place], [address], 04/25/2025 07:31:14 Medication Orders None recorded. Patient TargetsNo targets recorded. Patient InstructionsNo instructions recorded. Reason for Referral None Reported. Results Created Date Observation Date Name Description Value Unit Range Abnormal Flag Note LastModifiedBy Organization Detail LastModifiedTime 04/25/20 25 04/18/2025 XR, pelvi s, 1 or 2 view [facility] [address] [place] [address] [phone] Patialessandro t Name: MARCIN macias : [birth year] 75 Liliana macias 78 Amirta Morris er: KUNAL EGAN EXAM DATE: 2024 EXAM: [...] Curry MD Electr onical ly Signed By: eGrber Curry MD on 7:26 AM [email or web address] [facility] [address] [place], [address], 04/25/2025 15:52:01 Result Notes None recorded. Problems Name Problem SNOMED Code Status Onset Date Resolution Date Notes Provider Name and Address Organization Details Recorded Time Essential tremor 952750976 Active MANNY HUGHES DO [address] [place], [address] , [facility] 13:31:13 Problem Notes None recorded. Procedures Surgical History Date Name Laterality Status Provider Name and Address Organization Details Recorded Time procedure on shoulder completed JARROD BOSS MD [address] [place], [address], [facility] 03/21/2024 14:24:39 partial hysterectomy completed JARROD BOSS MD [address] [place], [address], [facility] 03/21/2024 14:22:37 procedure on wrist completed JARROD BOSS MD [address] [place] [address], [address], [facility] 03/21/2024 14:22:50 excision of lesion of joint completed JARROD BOSS MD [address] [place] [address], [address], [facility] 03/21/2024 14:24:01 Imaging Results None recorded. Procedure Notes None recorded. Medical Equipment None Reported. Allergies Allergen ID Allergen Name Allergen Category Reaction Reaction Severity Criticality Documentation Date Start Date Code Code System Note Provider Name and Address Organization Details Recorded Time 863580 olanzapin e medicatio n swelling Not available Not available 03/21/2024 39983 RxNorm [facility] 13:51:59 Medications Name Sig Start Date [...] Updated DateTime 04/18/2025 162.56 cm 29.5 kg/m2 14983.89 g Tyesha Neumann [facility] 04/18/2025 11:18:57 Social History Question Answer Notes LastModified by Organizat ion Details LastModified Time Tobacco Smoking Status Current [facility]/21[facility]2024 13:56:45 What Is Your Level Of Caffeine Consumption? None [email or web address] Information not available 10/23/2024 What Was The Date Of Your Most Recent Tobacco Screening? 04/19/2024 [email or web address] Information not available 04/19/2024 What Is Your Relationship Status? [email or web address] Information not available 10/23/2024 How Much Tobacco Do You Smoke? 1 PPD hrick Information not available 03/21/2024 Sex: Female Functional Status Question Answer Note LastModified by Organizat ion Details LastModified Time Do you use any illicit or recreational drugs? No [email or web address] Information not available 10/23/2024 What is your level of alcohol consumption? None [email or web address] Information not available 10/23/2024 Are you currently employed? No [email or web address] Information not available 10/23/2024 Mental Status None recorded. Family History Relationship Description Onset Age of this Age Resolved Age Notes LastModified by Organization Details LastModified Time Unspecified Relation Psoriasis variou s family member s with psoria sis; childr en, aunts, uncles , grandp arents Not available 03/21/2024 14:25:02 Father Malignant neoplastic disease Colon cancer , lung cancer Not available 10/23/2024 13:10:16 Mother Alcoholism [email or web address] Not availa ble 10/23/2024 13:10:08 Mother Heart disease [email or web address] Not available 2024 13:10:42 Mother Mental health problem [email or web address] Not available 2024 13:11:17 Mother Cerebrovascu lar accident Not available 10/2024 13:11:25 Sister Alcoholism [email or web address] Not availa ble 10/23/2024 13:10:08 Sister Heart disease [email or web address] Not available 2024 13:10:42 Sister Diabetes mellitus [email or web address] Not available 2024 13:11:02 Sister Mental health problem [email or web address] Not available 2024 13:11:17 Brother Heart disease [email or web address] Not available 2024 13:10:42 Brother Diabetes mellitus [email or web address] Not available 2024 13:11:02 Brother Mental health problem [email or web address] Not available 2024 13:11:17 Paternal Grandfather Diabetes [...] ICD10 Code Diagnosis IMO Codes Diagnosis Note [id number] ESTEVAN MASON MD [facility] [address] [place] [address] 03/27/2025 10:18:40 03/27/2025 10:46:09 Postoperative visit 675164874 Z48.89 [id number] KUNAL EGAN PA-C ORTHOP[facility] [address] [place] [address] 04/18/2025 11:14:47 04/18/2025 12:07:17 Postoperative visit 143668129 Z48.89 [id number] Assessment : Status just over 8 weeks [...] the of next month. Acetabular labrum tear 256056015 S73.191D [id number] Health Concerns Section Related Observation LastModified by Organization Detai ls LastModified Time None Recorded Concern Status LastModified by Organization Details LastModified Time None Recorded Payers Encounter Date Sequence Insurance Name Policy Number Policy Ortez Covered Member ID Ortez Member ID Guarantor Name 04/18/2025 2 [employer] [id number] R Nick Mcneill [id number] Marcin Mcneill Notes Date Note Type Note Provider Name and Address Organization Details Recorded Time 04/18/2025 text/html ROS as noted in the [...] this injury, not on right side. DOS: [id number]: right hip labral repair-PT 2x/wk 1 month, [facility]-PCP lortab 7.5 for pain KUNAL EGAN PA-C [address] [place], [address], [facility] 04/18/2025 13:47:52 OBGyn Episode No OBEpisode recorded.
--- OUTSIDE RECORDS SUMMARY | 2025-05-02 08:22 | XMS_ITS | Encounter Summary ---
Author Organization Healthcare Address [address] [place] [address] Care Team Providers Care Car Hiker Name Role Phone Lexii Medel Primary Care Provider Reason for Referral * Consultation (Routine) - Closed Specialty Diagnoses / Procedures Referred By Kavin macias Referred To Contact Orthopaedic Surgery Diagnoses Right hip pain Amos Yates PA [address] [place] [address] Phone: tel: fax: Daren Haider MD [address] [facility] [address] [place] [address] Phone: tel: fax: Referral ID Status Reason Start Date Expiration Date Visits Re quested Visits Authorized [id number] Closed 12/25/2022 06/25/2024 1 1 Encounter Details Date Type Department Care Team (Late st Contact Info) Description 12/25/2022 Community [facility] [address] [place] [address] Amos Yates PA [address] [place] [address] Right hip pain (Primary Dx) [...] thigh documented in this encounter Care Teams Car Hiker Relationship Specialty Start Date End Date Lexii Medel PA [address] [place] [address] PCP - General 11/01/20 documented as of this encounter
== END 2025-05-02 23:59 | disposition home or self-care (01) ==
LOC: RAD 08:19
PROVIDERS: PCP Family Medicine; Visit Provider Specialist/Technologist Athletic Trainer
DX: M16.11 Unilateral primary osteoarthritis, right hip (principal); S73.191A Other sprain of right hip, initial encounter; R93.6 Abnormal findings on diagnostic imaging of limbs
CPT/HCPCS: 73721

== ENCOUNTER 2025-06-18 15:00 | Outpatient (RCR) | payer MEDICARE, BC, SELFPAY | END 2025-06-18 23:59 | disposition home or self-care (01) | LOC: PT 15:00 | PROVIDERS: PCP Family Medicine; Visit Provider Physician Assistant | DX: Z96.641 Presence of right artificial hip joint (principal) | CPT/HCPCS: 97014; 97110; 97161; 97530; G0283 ==